=== PATIENT | female | born 1960 | race Caucasian/White ===

== ENCOUNTER → 2017-09-06 | Outpatient (CLI) | payer BC ==
--- NOTE | 2017-09-06 09:54 | US ---
EXAMINATION TYPE: US liver DATE OF EXAM: 09/06/2017 COMPARISON: MRI lumbar spine May 14, 2015 CLINICAL HISTORY: Abnormal Liver Functions R94.5. Patient stats having midline pain. NPO. EXAM MEASUREMENTS: Liver Length: 25.0 cm Gallbladder Wall: 0.1 cm CHD: 0.3 cm Right Kidney: 12.3 x 5.7 x 4.8 cm Pancreas: Appears heterogenous . Tail obscured by overlying bowel gas Liver: Enlarged. Echogenic. Slightly course in appearance. Gallbladder: wnl Evidence for sonographic Rosas's sign: neg CHD: wnl Right Kidney: wnl Evaluation for focal liver masses is suboptimal due to the heterogeneity. IMPRESSION: Heterogeneous hyperechoic appearance to liver could reflect could be product of diffuse f atty infiltration or underlying hepatocellular disease. Imaging guided random biopsy for tissue adams sis can be performed if desired.
[2017-09-06 09:58] LABS: ALT 58 U/L (9-52); AST 40 U/L (14-36); Alkaline Phosphatase 83 U/L (38-126); Anion Gap 11 mmol/L; Blood Urea Nitrogen 12 mg/dL (7-17); Calcium 9.7 mg/dL (8.4-10.2); Carbon Dioxide 24 mmol/L (22-30); Chloride 104 mmol/L (98-107); Glucose 241 mg/dL (74-99); Non-African American GFR(MDRD) >60 (>60 ml/min/1.73 sqM); Potassium 4.6 mmol/L (3.5-5.1); Sodium 139 mmol/L (137-145); Total Bilirubin 0.4 mg/dL (0.2-1.3); Total Protein 6.5 g/dL (6.3-8.2)
[2017-09-06 16:28] LABS: Iron Saturation 11.11 (12.00-45.00); Iron(FE) 45 ug/dL (50-170); Total Iron Binding Capacity 405 ug/dL (228-460)
[2017-09-06 16:35] LABS: ANA w/Reflex to Titer NEGATIVE (NEGATIVE)
== END | disposition home or self-care (01) ==
LOC: RADUSWWP 09:00
PROVIDERS: ATTEND Internal Medicine Gastroenterology
DX: R93.2 Abnormal findings on diagnostic imaging of liver and biliary tract (principal); R94.5 Abnormal results of liver function studies
CPT/HCPCS: 36415; 76705; 80053; 82103; 82390; 82728; 83516; 83540; 83550; 84165; 86038

== ENCOUNTER → 2017-09-14 | Outpatient (CLI) | payer BC ==
--- NOTE | 2017-09-15 22:22 | MR ---
EXAMINATION TYPE: MR cervical spine wo con DATE OF EXAM: 09/14/2017 COMPARISON: 04/09/2016 HISTORY: 57-year-old female pain in Back and shoulders, worsened the last 4 months TECHNIQUE: Multiplanar, multisequence images of the cervical spine were acquired. FINDINGS: No craniocervical junction abnormality, predental space widening, or prevertebral soft tissue swellin g. Normal alignment of the cervical spine. No suspicious bone marrow replacement. MR variable mild disc desiccation. Small posterior disc bulge at C5-C6 demonstrated. Scattered mild facet arthropathy also noted. At C5-C6, small broad-based posterior disc bulge impressing on the ventral thecal sac but not causing significant spinal canal stenosis. Additional facet and uncovertebral joint degenerative change. The re is similar mild left and minimal right neuroforaminal narrowing. At C6/C7, left-sided facet and uncovertebral joint degenerative changes minimally narrowing the left neural foramen. No spinal canal stenosis. Otherwise, no spinal canal or foraminal stenosis at the L4 level. Normal course, caliber, signal intensity of the cervical spinal cord. IMPRESSION: 1. Similar mild multilevel degenerative disc disease and additional scattered mild facet/uncovertebra l joint arthropathy. 2. Unchanged small broad-based disc bulge at C5-C6. Mild left and minimal right neuroforaminal stenos is at this level not significantly changed. 3. No spinal canal stenosis.
== END | disposition home or self-care (01) ==
LOC: RADMRIMAIN 14:54
PROVIDERS: ATTEND Psychiatry & Neurology Neurology
DX: M99.71 Connective tissue and disc stenosis of intervertebral foramina of cervical region (principal); M50.322 Other cervical disc degeneration at C5-C6 level; M46.82 Other specified inflammatory spondylopathies, cervical region; M50.222 Other cervical disc displacement at C5-C6 level
CPT/HCPCS: 72141

== ENCOUNTER → 2018-01-12 | Outpatient (CLI) | payer BC ==
--- NOTE | 2018-01-12 13:31 | FL ---
EXAMINATION TYPE: FL barium swallow w video DATE OF EXAM: 01/12/2018 MODIFIED SWALLOW / DEGLUTITION STUDY CLINICAL HISTORY: Dysphagia. TECHNIQUE: Deglutition study is performed utilizing thin liquid barium, honey and nectar thick liqui d barium, barium thick applesauce, and barium coated cracker. 1.08min fluoro time. No fluoroscopic im ages were saved as video was performed. COMPARISON: None. FINDINGS: The oral and pharyngeal phases show satisfactory initiation and propagation with all modali ties tested. Normal mastication is seen with solid modalities tested. There is no evidence of penet ration or aspiration with any modality tested. No significant pharyngeal residue was appreciated. IMPRESSION: Unremarkable deglutition study. Please refer to speech therapist notes for further detai ls if necessary.
== END | disposition home or self-care (01) ==
LOC: RADFLMAIN 11:05
PROVIDERS: ATTEND Otolaryngology
DX: R13.10 Dysphagia, unspecified (principal)
CPT/HCPCS: 74230

== ENCOUNTER 2018-02-02 10:56 | Day surgery (SDC) | payer BC ==
[2018-01-30 08:23] VITALS: BMI 37.5
[~2018-02-02 10:56] MED LIST: ALPRAZolam 0.25 MG TAB PO PRN; ALPRAZolam 0.5 MG TAB PO PRN; ASPIRIN 325 MG TAB PO STA; ATORVASTATIN 80 MG TAB PO STA; NITROGLYCERIN SL TABS 0.4 MG TAB SUBLINGUAL PRN; SODIUM CHLORIDE 0.9% 1,000 ML in EMPTY BAG 1 BAG IV ONE
[2018-02-02] MEDS ORDERED: INSULIN ASPART 100 UNIT/ML 1 ML 10 ML VIAL SQ ONE (11:37)
[2018-02-02 11:47] LABS: Glucose,Whole Blood 201 mg/dL (75-99)
[2018-02-02 11:54] VITALS: TEMP 98.3
[2018-02-02] MEDS ORDERED: LIDOCAINE 2% INJ 20 MG/ML (20 ML MDV) ONE (12:16)
[2018-02-02] MEDS ORDERED: VERAPAMIL 2.5 MG/ML 2 ML AMP ONE (12:16)
[2018-02-02] MEDS ORDERED: fentaNYL (PF) 50 MCG/ML 2 ML AMP ONE (12:17)
[2018-02-02] MEDS ORDERED: INSULIN ASPART 100 UNIT/ML 1 ML 10 ML VIAL SQ SCH (12:30)
[2018-02-02] MEDS ORDERED: fentaNYL (PF) 50 MCG/ML 2 ML AMP IV ONE (12:31)
[2018-02-02] MEDS ORDERED: LIDOCAINE 2% INJ 20 MG/ML SQ ONE (12:36)
[2018-02-02] MEDS: VERAPAMIL SYRINGE (5 MG/10 ML) INTRAARTER ONE ×2 (12:40→12:52)
[2018-02-02] MEDS ORDERED: HEPARIN SODIUM 1,000 UN/ML (10ML VL) ONE (12:45)
[2018-02-02] MEDS ORDERED: HEPARIN SODIUM 1,000 UN/ML (10ML VL) IV ONE (12:49)
[2018-02-02] MEDS ORDERED: IOPAMIDOL-370 125ML BTL INJ ONE (12:50)
[2018-02-02] MEDS ORDERED: RX INFO: IV CONTRAST WAS GIVEN 1 EACH MISC MISCELLANE PRN (13:07)
[2018-02-02] MEDS ORDERED: HYOSCYAMINE ORAL DROPS 1.875 MG/15 ML BOTTLE PO PRN (13:08)
[2018-02-02] MEDS ORDERED: NITROGLYCERIN SL TABS 0.4 MG TAB SUBLINGUAL PRN (13:08)
[2018-02-02] MEDS ORDERED: SODIUM CHLORIDE 0.9% 1,000 ML IV SCH (13:15)
[2018-02-02 13:20] LABS: Glucose,Whole Blood 165 mg/dL (75-99)
--- NOTE | 2018-02-02 13:42 | LTR ---
February 02, 2018 Re: Lo Cannon Dear Dr. Shaw: I had the opportunity to perform cardiac catheterization on Mrs. Cannon at [facility] on the 02 of February and a full copy of the procedure note will be forwarded to you. In brief, she was found to have no evidence of obstructive coronary artery disease with a preserved left ventricular size and systolic function. Based on those findings, I recommend to continue medical therapy with aggressive coronary risk modification we have initiated. Thank you again for allowing me the opportunity to participate in her care. Please feel free to call for any questions. Sincerely yours, MD REZA SinhaL / NIRMALN: [id number] /
--- NOTE | 2018-02-02 13:42 | CC ---
CARDIAC CATHETERIZATION REPORT Mrs. Cannon is a 57-year-old female known history of hypertension, hyperlipidemia, diabetes mellitus, who has been complaining of chest discomfort. She underwent myocardial perfusion imaging that revealed partially reversible anteroapical wall defect. Because of her persistent symptoms and her risk factors, recommendation was made regarding cardiac catheterization. The procedure as well as the risks and the complications were discussed with the patient who is in full understanding and agreement. PROCEDURE: Patient was brought to the laborer pullet farm in a fasting semi-sedated state after receiving fentanyl and Benadryl and achieving moderate conscious sedated state. Using Xylocaine anesthesia in the Seldinger technique, a 6-Ethiopian sheath was introduced in the right radial artery. Selective right and left coronary angiography performed using 5- Ethiopian 3.5 bend right and left Leanne catheter. Multiple views of the coronary artery including hemiaxial views were obtained. Following that, a 5-Ethiopian tight pigtail catheter introduced in the left ventricle and a 30-degree [place] view of the left ventricle was obtained. Following that, the catheter and sheaths were removed. Hemostasis was obtained with deployment of a TR band. There was no immediate complication. Patient is returned to her room in stable condition. Of note, the patient received intra-arterial verapamil as well as 5000 units of intravenous heparin. FINDINGS: LEFT MAIN: This is a large-sized vessel bifurcating in left circumflex and left anterior descending artery. Left main coronary artery is without any significant obstructive coronary artery disease. LEFT ANTERIOR DESCENDING ARTERY: This is a large-sized vessel reaching toward the apex with a wraparound apex segment giving rise to a large diagonal branch in the mid segment. The left anterior descending artery as well as branches have no evidence of obstructive coronary artery disease. LEFT CIRCUMFLEX: This is a dominant vessel, large in caliber, giving rise to 2 obtuse marginal branches. The first one is small in caliber ,distally bifurcating into PDA and PLV branches. The left circumflex as well as branches have no evidence of obstructive coronary artery disease. RIGHT CORONARY ARTERY: This is a small nondominant vessel that has no evidence of high- grade stenosis, LEFT VENTRICULOGRAM: The left ventriculogram is performed 30-degree [place] view and revealed normal left ventricular size and systolic function. Ejection fraction is 60%. There was no significant mitral regurgitation. HEMODYNAMICS: There was no gradient across the aortic valve. The left ventricle end-diastolic pressure was 12 to 16 mmHg. CONCLUSION: 1. Normal coronary arteries. 2. Normal left ventricular size and systolic function. RECOMMENDATION: Patient will be continued on present medical therapy including the aggressive coronary risk modifications that have been initiated. Depending on her progress, further recommendation will be made. Those findings and recommendation were discussed with the patient and her family and are in full understanding and agreement. MMODL / IJN: [id number] / MTDD
[2018-02-02 17:19] VITALS: PULSE 72; RESP 18
[2018-02-02] MEDS ORDERED: NON-FORMULARY DRUG (Omeprazole [Prilosec] 20 MG) PO SCH (17:30)
[2018-02-02 18:23] VITALS: BP 134/72
[2018-02-02] MEDS ORDERED: CYCLOBENZAPRINE 10 MG TAB PO SCH (21:00)
[2018-02-02] MEDS ORDERED: SUCRALFATE 1 GM TAB PO SCH (21:00)
[2018-02-02] MEDS ORDERED: BECLOMETHASONE DIP 80 MCG/PUFF INHALER INHALATION SCH (21:00)
[2018-02-02] MEDS ORDERED: DULoxetine HCL 60 MG CAPSULE.DR PO SCH (21:00)
[2018-02-02] MEDS ORDERED: LAMOTRIGINE 100 MG PO SCH (21:00)
[2018-02-02] MEDS ORDERED: MONTELUKAST 10 MG TAB PO SCH (21:00)
[2018-02-02] MEDS ORDERED: cycloSPORINE 0.05% OPHTH 0.4 ML DROPERETTE BOTH EYES SCH (21:00)
[2018-02-03] MEDS ORDERED: buPROPion XL 300 MG TAB.ER.24H PO SCH (09:00)
[2018-02-03] MEDS ORDERED: LIRAGLUTIDE SQ SCH (09:00)
[2018-02-03] MEDS ORDERED: NON-FORMULARY DRUG (Aspirin Ec 81 MG) PO SCH (09:00)
[2018-02-03] MEDS ORDERED: FERROUS SULFATE 325 MG TAB PO SCH (09:00)
[2018-02-03] MEDS ORDERED: LEVOTHYROXINE 88 MCG TAB PO SCH (09:00)
[2018-02-03] MEDS ORDERED: DOCUSATE 100 MG CAP PO SCH (09:00)
[2018-02-03] MEDS ORDERED: PROPRANOLOL HCL 120 MG PO SCH (09:00)
== END 2018-02-02 18:10 | disposition home or self-care (01) ==
LOC: CATHCVL 10:56
PROVIDERS: ATTEND Internal Medicine Interventional Cardiology
DX: R07.89 Other chest pain (principal); R94.39 Abnormal result of other cardiovascular function study; E11.9 Type 2 diabetes mellitus without complications; I10 Essential (primary) hypertension; E78.2 Mixed hyperlipidemia; Z82.49 Family history of ischemic heart disease and other diseases of the circulatory system; Z79.84 Long term (current) use of oral hypoglycemic drugs; Z79.82 Long term (current) use of aspirin; Z79.890 Hormone replacement therapy; Z79.51 Long term (current) use of inhaled steroids; Z79.899 Other long term (current) drug therapy; Z88.8 Allergy status to other drugs, medicaments and biological substances
CPT/HCPCS: 93458; C1894; C1769 ×2; J2001; J3010; J1644; Q9967

== ENCOUNTER → 2018-05-26 | Outpatient (CLI) | payer BC ==
--- NOTE | 2018-05-30 09:10 | MM ---
Reason for exam: screening (asymptomatic). Last mammogram was performed 2 years and 7 months ago. History: Patient is nulliparous. Family history of breast cancer in mother. Physical Findings: A clinical breast exam by your physician is recommended on an annual basis and results should be correlated with mammographic findings. MG 3D Screening Mammo W/Cad Bilateral CC and MLO view(s) were taken. Prior study comparison: October 28, 2015, mammogram, performed at [facility]. December 23, 2014, mammogram, performed at [facility]. There are scattered fibroglandular densities. There is chronic nodularity in the right breast. No significant changes when compared with prior studies. ASSESSMENT: Benign, BI-RAD 2 RECOMMENDATION: Routine screening mammogram of both breasts in 1 year.
== END | disposition home or self-care (01) ==
LOC: RADMAMWWP 14:45
PROVIDERS: ATTEND Family Medicine
DX: Z12.31 Encounter for screening mammogram for malignant neoplasm of breast (principal)
CPT/HCPCS: 77063; 77067

== ENCOUNTER → 2018-06-09 | Day surgery (SDC) | payer BC ==
[2018-06-07 14:16] VITALS: BMI 37.2
[~2018-06-09] MED LIST changes: -ALPRAZolam 0.25 MG TAB PO PRN; -ALPRAZolam 0.5 MG TAB PO PRN; -ASPIRIN 325 MG TAB PO STA; -ATORVASTATIN 80 MG TAB PO STA; +LACTATED RINGERS 1,000 ML IV SCH; +LIDOCAINE 1% 20 ML VIAL (10MG/ML) FOR IV START INTRADERMA PRN; +LIDOCAINE 1% INJ 10MG/ML (20 ML MDV) ONE; -NITROGLYCERIN SL TABS 0.4 MG TAB SUBLINGUAL PRN; +ONDANSETRON 4 MG/2 ML VIAL IVP ONE; +PROPOFOL 10 MG/ML 20 ML VIAL IV ONE; -SODIUM CHLORIDE 0.9% 1,000 ML in EMPTY BAG 1 BAG IV ONE
[2018-06-09 07:17] VITALS: RESP 16; TEMP 98.6
[2018-06-09 07:20] LABS: Glucose,Whole Blood 204 mg/dL (75-99)
--- NOTE | 2018-06-09 08:24 | P.PCN ---
Date of Procedure: 06/09/18 Procedure(s) Performed: BRIEF HISTORY: Patient is a 57-year-old, pleasant, white female, scheduled for an upper endoscopy as a part of evaluation of epigastric fullness, admitted dysphagia to solids for the last several weeks duration. She has long-standing history of GERD and has been on omeprazole 20 mg daily as well as Carafate. She also has history of diabetes mellitus diagnosed recently. Because of the ongoing upper GI symptoms she is scheduled for an upper endoscopy with possible dilation. PROCEDURE PERFORMED: Esophagogastroduodenoscopy with biopsy. PREOPERATIVE DIAGNOSIS: Epigastric fullness, intermittent dysphagia to solids. IV sedation per anesthesia. PROCEDURE: After informed consent was obtained, the patient was brought into the endoscopy unit. IV sedation was administered by Anesthesia under continuous monitoring. Initially the Olympus GIF-140 video endoscope was inserted into the mouth. Esophagus intubated without any difficulty. It was gradually advanced into the stomach and duodenum and carefully examined. The bulb and the second part of the duodenum appeared normal. Biopsies were done from the duodenum to rule out celiac disease. The scope at this time was withdrawn to the stomach, adequately insufflated with air, and upon careful examination, mucosa of the antrum, had gastritis and biopsies were done from this area. There was large amount of retained solid food noted in this fundus and body of the stomach precluding adequate visualization but the visualized portions of the body, cardia and the fundus appeared normal. The scope was then withdrawn into the esophagus. The GE junction was located at 39 cm from the incisors. The esophagus appeared normal. There were no erosions or ulcerations seen. No evidence of esophageal stricture and the patient tolerated the procedure well. IMPRESSION: 1. Large amount of retained food in the stomach suggestive of diabetic gastroparesis. 2. Mild antral gastritis and duodenitis. 3. Normal-appearing esophagus with no evidence of esophagitis or esophageal stricture RECOMMENDATIONS: The findings of this examination were discussed with the patient as well as his family. She was advised to follow with the biopsy results. She will continue with her Prilosec 20 mg twice daily and follow antireflux measures. She was advised to be on small frequent meals. She will be seen in office in 6 weeks..
[2018-06-09 08:33] VITALS: BP 119/78; PULSE 83
== END | disposition home or self-care (01) ==
LOC: ORWHC2ENDO 06:47
PROVIDERS: ATTEND Internal Medicine Gastroenterology
DX: K29.50 Unspecified chronic gastritis without bleeding (principal); K21.0 Gastro-esophageal reflux disease with esophagitis; K29.80 Duodenitis without bleeding; I86.4 Gastric varices; I10 Essential (primary) hypertension; E78.5 Hyperlipidemia, unspecified; E11.9 Type 2 diabetes mellitus without complications; J45.909 Unspecified asthma, uncomplicated; G47.33 Obstructive sleep apnea (adult) (pediatric); E07.9 Disorder of thyroid, unspecified; F34.1 Dysthymic disorder; M79.7 Fibromyalgia; Z79.82 Long term (current) use of aspirin; Z79.899 Other long term (current) drug therapy; Z88.8 Allergy status to other drugs, medicaments and biological substances
CPT/HCPCS: 43239; J2405; J2001; J2704; 88305

== ENCOUNTER 2019-12-06 09:17 | Observation (INO) | payer BC ==
[2019-12-06 19:34] VITALS: RESP 18
[2019-12-07 12:52] VITALS: BP 139/68; PULSE 80; TEMP 98.5
== END 2019-12-07 13:42 | disposition home or self-care (01) ==
LOC: EC 09:17 → 1SOBS 12:45
PROVIDERS: ADMIT Internal Medicine; ATTEND Internal Medicine
DX: R07.9 Chest pain, unspecified (principal); E11.65 Type 2 diabetes mellitus with hyperglycemia; I10 Essential (primary) hypertension; E78.00 Pure hypercholesterolemia, unspecified; E78.5 Hyperlipidemia, unspecified; J45.909 Unspecified asthma, uncomplicated; M79.7 Fibromyalgia; K21.9 Gastro-esophageal reflux disease without esophagitis; K76.0 Fatty (change of) liver, not elsewhere classified; H91.90 Unspecified hearing loss, unspecified ear; G47.30 Sleep apnea, unspecified; E03.9 Hypothyroidism, unspecified; K58.9 Irritable bowel syndrome, unspecified; E66.9 Obesity, unspecified; Z68.36 Body mass index [BMI] 36.0-36.9, adult; M19.90 Unspecified osteoarthritis, unspecified site; H40.9 Unspecified glaucoma; F41.9 Anxiety disorder, unspecified; F32.9 Major depressive disorder, single episode, unspecified; L30.9 Dermatitis, unspecified; K76.9 Liver disease, unspecified; E78.1 Pure hyperglyceridemia; Z90.710 Acquired absence of both cervix and uterus; Z90.89 Acquired absence of other organs; Z88.8 Allergy status to other drugs, medicaments and biological substances; Z79.82 Long term (current) use of aspirin; Z79.84 Long term (current) use of oral hypoglycemic drugs; Z79.51 Long term (current) use of inhaled steroids; Z79.890 Hormone replacement therapy; Z79.899 Other long term (current) drug therapy; Z82.49 Family history of ischemic heart disease and other diseases of the circulatory system; Z80.9 Family history of malignant neoplasm, unspecified; Z83.2 Family history of diseases of the blood and blood-forming organs and certain disorders involving the immune mechanism; Z91.011 Allergy to milk products; Z91.018 Allergy to other foods; E11.43 Type 2 diabetes mellitus with diabetic autonomic (poly)neuropathy; K31.84 Gastroparesis; G43.909 Migraine, unspecified, not intractable, without status migrainosus; R06.02 Shortness of breath; R11.0 Nausea; R42 Dizziness and giddiness; R00.2 Palpitations; R61 Generalized hyperhidrosis; R23.2 Flushing; R10.13 Epigastric pain; R10.12 Left upper quadrant pain
CPT/HCPCS: 93005 ×2; 96366 ×2; 96376; 96365; 99291; 36415; 94640 ×2; 94760; 80061; 80053; 80048; 82150; 83690; 83735; 84484; 85025 ×2; 85610; 85730 ×2; 71046; 93979; G0378 ×2; J1644 ×3

== ENCOUNTER → 2019-12-17 | Outpatient (CLI) | payer BC ==
--- NOTE | 2019-12-18 10:27 | BD ---
EXAMINATION TYPE: Axial Bone Density DATE OF EXAM: 12/17/2019 COMPARISON: NONE CLINICAL HISTORY: Z 78.0 Height: 5 FT 2 IN Weight: 207 FRAX RISK QUESTIONS: Alcohol (3 or more units per day): NO Family History (Parent hip fracture): NO Glucocorticoids (More than 3mos): NO (Ex: prednisone, prednisolone, methylprednisolone, dexamethasone, and hydrocortisone). History of Fracture in Adulthood: NO Secondary Osteoporosis: NO 1. Type 1 Diabetes: NO 2. Hyperthyroidism: NO 3. Menopause before 45: PART AGE 44 4. Malnutrition: NO 5. Chronic liver disease: NO Rheumatoid Arthritis: NO Current Tobacco Use: NO RISK FACTORS HISTORY OF: Family History of Osteoporosis: YES Active: NO Postmenopausal woman: PART AGE 44 Poor Health: FAIR TO POOR MEDICATIONS: Thyroid Medications: YES Which medication: SYNTHROID How Long: APPROX 15 YEARS Additional Medications: METFORMIN, SYNTHROID, ALPRAZOLAM, BUPROPION,COSAMIN, FLEXERIL, CYMBALTA, ASPI RIN, LASIX, HYDROXYZINE, IBUPROFEN, KLOR-CON, MELATONIN, LAMICTAL, SINGULAIR, NITROSTAT, PRILOSEC, IN DERAL, QVAR, RESTASIS, SIMVASTATIN, CARAFATE, JARDIANCE, VENTOLIN, VICTOZA, Additional History: EXAM MEASUREMENTS: Bone mineral densitometry was performed using the [employer]. Bone mineral density as measured about the Lumbar spine is: ----- L1-L4(G/cm2): 1.129 T Score Values are as follows: ----- L2: 0.3 ----- L3: -0.3 ----- L4: -1.1 ----- L1-L4: -0.4 BASELINE Bone mineral density about the R hip (g/cm2): 0.995 Bone mineral density about the L hip (g/cm2): 1.004 T Score values are as follows: -----R Neck: -0.3 -----L Neck: -0.2 -----R Total: 0.5 -----L Total: 1.5 BASELINE IMPRESSION: Normal (Values between +1 and -1 indicate normal bone mass). Consider repeating this study in 5 year s or sooner if there is some new clinical indication. NOTE: T-SCORE=SD OF THE YOUNG ADULT MEAN.
--- NOTE | 2019-12-18 11:37 | MM ---
Reason for exam: screening (asymptomatic). Last mammogram was performed 1 year and 7 months ago. History: Patient is nulliparous. Family history of breast cancer in mother. Physical Findings: A clinical breast exam by your physician is recommended on an annual basis and results should be correlated with mammographic findings. MG Screening Mammo w CAD Bilateral CC and MLO view(s) were taken. XCCL view(s) were taken of the right breast. Prior study comparison: May 26, 2018, bilateral MG 3d screening mammo w/cad. October 28, 2015, mammogram, performed at [facility]. There are scattered fibroglandular densities. There is chronic nodularity in the right breast. Small focal asymmetry 2-3 o'clock left breast anterior to middle depth appears more defined on the CC view. These results were verbally communicated with the patient and result sheet given to the patient on 12/17/19. ASSESSMENT: Incomplete: need additional imaging evaluation, BI-RAD 0 RECOMMENDATION: Special view mammogram of the left breast. (3D) If lesion persists on supplemental views, image directed ultrasound is recommended. [facility] will attempt to contact patient to return for supplemental views and ultrasound if indicated.
== END | disposition home or self-care (01) ==
LOC: RADMAMWWP 14:37
PROVIDERS: ATTEND Obstetrics & Gynecology
DX: Z12.31 Encounter for screening mammogram for malignant neoplasm of breast (principal); Z80.3 Family history of malignant neoplasm of breast; Z78.0 Asymptomatic menopausal state
CPT/HCPCS: 77067; 77080

== ENCOUNTER → 2020-01-03 | Outpatient (CLI) | payer BC ==
--- NOTE | 2020-01-04 10:19 | MM ---
Reason for exam: additional evaluation requested from abnormal screening. Last mammogram was performed 1 month ago. History: Patient is nulliparous. Family history of breast cancer in mother at age 49. Physical Findings: Nurse did not find any significant physical abnormalities on exam. MG Work Up Mamm w CAD LT Spot compression CC, spot compression MLO, and LM view(s) were taken of the left breast. Prior study comparison: December 17, 2019, bilateral MG screening mammo w CAD. May 26, 2018, bilateral MG 3d screening mammo w/cad. The breast tissue is heterogeneously dense. This may lower the sensitivity of mammography. Benign appearing calcifications in the left breast. The previously seen abnormality resolves on additional views and appears as fibroglandular tissue compatible with summation. These results were verbally communicated with the patient and result sheet given to the patient on 01/03/20. ASSESSMENT: Benign, BI-RAD 2 RECOMMENDATION: Return to routine screening mammogram schedule for both breasts.
== END | disposition home or self-care (01) ==
LOC: RADMAMWWP 13:54
PROVIDERS: ATTEND Obstetrics & Gynecology
DX: R92.8 Other abnormal and inconclusive findings on diagnostic imaging of breast (principal)
CPT/HCPCS: 77065

== ENCOUNTER → 2021-01-15 | Outpatient (CLI) | payer BC ==
--- NOTE | 2021-01-16 05:36 | MR ---
EXAMINATION TYPE: MR foot LT wo con DATE OF EXAM: 01/15/2021 COMPARISON: None HISTORY: Left foot pain in toes and ball of foot, metatarsalgia, and osteoarthritis for 6 years. There is some metal artifact at the second metatarsal head. There is also some metal artifact on the plantar aspect of the proximal fourth metatarsal. There is no evidence of a fracture. I see no focal bone destruction. The toes appear intact. There is no evidence of a soft tissue mass. There is some edema around the proximal fourth and fifth toes. I see no evidence of a toe fracture. IMPRESSION: No fracture. There is some edema around the fourth and fifth toes. Metal artifact. This could be evaluated further with plain film exam if clinically indicated.
== END | disposition home or self-care (01) ==
LOC: RADMRIMAIN 15:53
PROVIDERS: ATTEND Podiatrist Foot & Ankle Surgery
DX: R60.0 Localized edema (principal)

== ENCOUNTER → 2021-11-13 | Outpatient (CLI) | payer BC ==
[2021-11-14 03:53] LABS: HDL Cholesterol 35.5 mg/dL (40.00-60.00)
[2021-11-14 04:04] LABS: Chol/HDL Ratio 5.24 Ratio; LDL Cholesterol,Direct Reflex 73.1 mg/dL (0.00-129.00)
== END | disposition home or self-care (01) ==
LOC: LABWHC1 14:39
PROVIDERS: ATTEND Internal Medicine Interventional Cardiology
DX: E78.2 Mixed hyperlipidemia (principal)
CPT/HCPCS: 36415; 80061; 83721; 84450; 84460

== ENCOUNTER → 2021-12-21 | Outpatient (CLI) | payer BC ==
--- NOTE | 2021-12-22 08:55 | BD ---
EXAMINATION TYPE: Axial Bone Density DATE OF EXAM: 12/21/2021 COMPARISON: 12/17/2019 CLINICAL HISTORY: Height: 62.2 IN Weight: 209 LBS RISK FACTORS HISTORY OF: History of Wrist Fracture: LT WRIST AGE 8 Family History of Osteoporosis: YES BROTHER Active: YES Postmenopausal woman: PARTIAL HYST AGE 46 MEDICATIONS: Thyroid Medications: YES Which medication: Levothyroxine How Lon YEARS Additional Medications: VIT D, LEVOTHYROXINE,APRAZOLAM, ASPIRIN, BUPROPION, COSAMIN, CYCLOBENZAPRINE, DULOXETINE, FENOFIBRATE, FUROSEMIDE, HYOSCYAMINE, IRON, JARDIANCE, KLOR-CON, LAMOTRIGINE, MELATONIN, METFORMIN, MONTELUKAST, OMEPRAZOLE, PROPRANOLOL, QVAR, RESTASIS, SIMVASTATIN EXAM MEASUREMENTS: Bone mineral densitometry was performed using the [employer]. Bone mineral density as measured about the Lumbar spine is: ----- L1-L4(G/cm2): 1.120 T Score Values are as follows: ----- L2: 0.1 ----- L3: -0.1 ----- L4: -1.2 ----- L1-L4: -0.5 Bone mineral density has: NO CHANGE 0.0% since study of: 12/17/2019 Bone mineral density about the R hip (g/cm2): 0.978 Bone mineral density about the L hip (g/cm2): 0.980 T Score values are as follows: -----R Neck: -0.4 -----L Neck: -0.4 -----R Total: 0.4 -----L Total: 0.8 Bone mineral density has: Decreased -4.3% since study of: 12/17/2019 IMPRESSION: Normal (Values between +1 and -1 indicate normal bone mass). Consider repeating this study in 5 year s or sooner if there is some new clinical indication. NOTE: T-SCORE=SD OF THE YOUNG ADULT MEAN.
== END | disposition home or self-care (01) ==
LOC: RADBDWWP 13:24
PROVIDERS: ATTEND Obstetrics & Gynecology
DX: Z12.31 Encounter for screening mammogram for malignant neoplasm of breast (principal); Z80.3 Family history of malignant neoplasm of breast; Z78.0 Asymptomatic menopausal state
CPT/HCPCS: 77080

== ENCOUNTER → 2022-01-01 | Outpatient (CLI) | payer BC ==
--- NOTE | 2022-01-05 10:35 | MM ---
Reason for exam: screening (asymptomatic). Last mammogram was performed 2 years ago. History: Patient is nulliparous. Family history of breast cancer in mother at age 49. Physical Findings: A clinical breast exam by your physician is recommended on an annual basis and results should be correlated with mammographic findings. MG Screening Mammo w CAD Bilateral CC and MLO view(s) were taken. Prior study comparison: December 17, 2019, bilateral MG screening mammo w CAD. May 26, 2018, bilateral MG 3d screening mammo w/cad. There are scattered fibroglandular densities. There is chronic nodularity in the right breast. Unchanged 3 o'clcok focal asymmetry left breast. No significant changes when compared with prior studies. ASSESSMENT: Benign, BI-RAD 2 RECOMMENDATION: Routine screening mammogram of both breasts in 1 year.
== END | disposition home or self-care (01) ==
LOC: RADMAMWWP 13:49
PROVIDERS: ATTEND Obstetrics & Gynecology
DX: Z12.31 Encounter for screening mammogram for malignant neoplasm of breast (principal); Z80.3 Family history of malignant neoplasm of breast; Z78.0 Asymptomatic menopausal state
CPT/HCPCS: 77067

== ENCOUNTER → 2022-04-01 | Outpatient (CLI) | payer BC ==
[2022-04-01 22:38] LABS: African American GFR (CKD) 112.3 (60.0-200.0); Albumin 4.7 g/dL (3.8-4.9); Albumin/Globulin Ratio 2.21 (1.60-3.17); Anion Gap 15.4 mmol/L (10.00-18.00); BUN/Creat Ratio 25.16 Ratio (12.00-20.00); Blood Urea Nitrogen 15.8 mg/dL (9.0-27.0); Calcium 9.4 mg/dL (8.7-10.3); Carbon Dioxide 21.2 mmol/L (20.0-27.5); Globulin 2.1 g/dL (1.6-3.3); Non-African American GFR(CKD) 96.9 (60.0-200.0); Potassium 4.5 mmol/L (3.5-5.5); Total Bilirubin 0.4 mg/dL (0.30-1.20); Total Protein 6.8 g/dL (6.2-8.2)
[2022-04-01 22:51] LABS: Chol/HDL Ratio 4.95 Ratio; LDL Cholesterol,Direct Reflex 81.7 mg/dL (0.00-129.00)
== END | disposition home or self-care (01) ==
LOC: LABWHC1 12:49
PROVIDERS: ATTEND Nurse Practitioner Adult Health
DX: I10 Essential (primary) hypertension (principal)
CPT/HCPCS: 36415; 80053; 80061; 83721

== ENCOUNTER 2022-04-24 07:01 | Observation (INO) | payer BC ==
[2022-04-24] MEDS ORDERED: SODIUM CHLORIDE 0.9% 500 ML 500 ML IV STA (07:27)
[2022-04-24] MEDS ORDERED: NITROGLYCERIN OINT 1 INCH/GM PACKET TOPICAL STA (07:27)
[2022-04-24] MEDS ORDERED: NITROGLYCERIN SL TABS 0.4 MG TAB SUBLINGUAL STA (07:27)
[2022-04-24] MEDS ORDERED: ASPIRIN 81 MG PO STA (07:27)
--- NOTE | 2022-04-24 07:31 | ED ---
General Adult HPI - General Chief complaint: Chest Pain Stated complaint: Chest Pain Time Seen by Provider: 04/24/22 07:15 Source: patient, RN notes reviewed, old records reviewed Mode of arrival: wheelchair Limitations: no limitations - History of Present Illness Initial comments: This is a 61-year-old female with past medical history significant for diabetes hypertension high cholesterol and a strong family history of heart disease. Patient states she started having a little bit of chest pain yesterday but today and overnight she started having chest pain radiated to her jaw made her a little diaphoretic and short of breath. Patient states the pain continues currently. Patient denies any recent fever chills or cough per patient states she has chronic abdominal pain and she has again today. Patient denies any vomiting patient denies any diarrhea. Patient states exertion did not seem to make the pain any worse. Patient denies any calf pain or leg swelling - Related Data Home Medications Medication Instructions Recorded Confirmed Beclomethasone Dipropionate [Qvar 1 puff INHALATION RT-BID 08/05/14 12/06/19 80 mcg/puff] DULoxetine HCL [Cymbalta] 120 mg PO DAILY 08/05/14 12/06/19 Furosemide [Lasix] 20 mg PO DAILY 08/05/14 12/06/19 Montelukast [Singulair] 10 mg PO HS 08/05/14 12/06/19 Omeprazole [PriLOSEC] 20 mg PO AC-BID 08/05/14 12/06/19 Potassium Chloride [Klor-Con 10] 10 meq PO DAILY 08/05/14 12/06/19 Sucralfate [Carafate] 1 gm PO BID 08/05/14 12/06/19 metFORMIN HCL [Glucophage] 1,000 mg PO BID 08/05/14 12/06/19 Albuterol Inhaler [Ventolin Hfa 1 - 2 puff INHALATION RT-Q6H PRN 03/25/15 12/06/19 Inhaler] Aspirin EC [Ecotrin Low Dose] 81 mg PO DAILY 03/25/15 12/06/19 Hyoscyamine Oral Drops [Levsin 0.125 mg PO DAILY PRN 03/25/15 12/06/19 Drops] Ibuprofen [Motrin] 600 mg PO Q8HR PRN 03/25/15 12/06/19 Liraglutide [Victoza 2-Alexx] 1.7 mg SQ DAILY 03/25/15 12/06/19 Nitroglycerin Sl Tabs [Nitrostat] 0.4 mg SUBLINGUAL Q5M PRN 03/25/15 12/06/19 cycloSPORINE [Restasis] 1 drop BOTH EYES Q12H 03/25/15 12/06/19 Cyclobenzaprine [Flexeril] 10 mg PO HS 01/30/18 12/06/19 Docusate [Colace] 100 mg PO DAILY 01/30/18 12/06/19 Melatonin 5 mg PO HS 01/30/18 12/06/19 buPROPion HCL [Wellbutrin XL] 300 mg PO DAILY 01/30/18 12/06/19 Ferrous Sulfate [Iron (65 MG 325 mg PO DAILY 06/07/18 12/06/19 Elemental)] ALPRAZolam [Xanax] 0.5 mg PO BID PRN 12/06/19 12/06/19 Ascorbic Acid [Vitamin C] 500 mg PO DAILY 12/06/19 12/06/19 Aspirin EC [Ecotrin Low Dose] 324 mg PO ONCE PRN 12/06/19 12/06/19 Bimatoprost [[place] 0.01% Ophth 1 drop BOTH EYES HS 12/06/19 12/06/19 Soln] Biotin [Biotin Disolve] 5,000 mcg PO DAILY 12/06/19 12/06/19 Calcium/Magnes/[place] 1 tab PO TID 12/06/19 12/06/19 Cosamin Asu 1 tab PO DAILY 12/06/19 12/06/19 Cyanocobalamin (Vitamin B-12) 1,000 mcg PO DAILY 12/06/19 12/06/19 [Vitamin B-12] Empagliflozin [Jardiance] 10 mg PO DAILY 12/06/19 12/06/19 Evening [place] Oil 1,000 mg PO FR 12/06/19 12/06/19 L.acidoph,Paracasei, B.lactis 1 cap PO DAILY 12/06/19 12/06/19 [Probiotic] Levothyroxine Sodium [Synthroid] 100 mcg PO DAILY 12/06/19 12/06/19 Mupirocin 2% Oint [Bactroban 2% 1 applic TOPICAL DAILY PRN 12/06/19 12/06/19 Oint] [place]-3 Fatty Acids [[place]-3] 1,000 mg PO TID 12/06/19 12/06/19 Triamcinolone 0.1% Ointment 1 applic TOPICAL DAILY PRN 12/06/19 12/06/19 [Kenalog 0.1% Ointment] Vitamin E 400 unit PO DAILY 12/06/19 12/06/19 buPROPion XL [Wellbutrin XL] 150 mg PO DAILY 12/06/19 12/06/19 lamoTRIgine [LaMICtal] 100 mg PO DAILY 12/06/19 12/06/19 lamoTRIgine [LaMICtal] 200 mg PO HS 12/06/19 12/06/19 Previous Rx's Medication Instructions Recorded Atorvastatin [Lipitor] 40 mg PO HS #90 tab 12/07/19 Fenofibrate [Lofibra] 160 mg PO DAILY #90 tab 12/07/19 Metoprolol Tartrate [Lopressor] 50 mg PO DAILY #90 tab 12/07/19 Allergies Allergy/AdvReac Type Severity Reaction Status Date / Time desipramine HCl Allergy Rash/Hives Verified 04/24/22 07:06 [From Norpramin] gluten Allergy Abdominal Verified 04/24/22 07:06 Pain Milk Containing Products AdvReac Abdominal Verified 04/24/22 07:06 Pain YEAST AdvReac Unknown Abdominal Uncoded 04/24/22 07:06 Pain Review of Systems ROS Statement: Those systems with pertinent positive or pertinent negative responses have been documented in the HPI. ROS Other: All systems not noted in ROS Statement are negative. Past Medical History Past Medical History: Asthma, Chest Pain / Angina, Diabetes Mellitus, Eye Disor snow, Fibromyalgia, GERD/Reflux, Hearing Disorder / Deafness, Hyperlipidemia, Hypertension, Liver Disease, Skin Disorder, Sleep Apnea/CPAP/BIPAP, Thyroid Disorder Additional Past Medical History / Comment(s): Central auditory processing disorder/[place], dysphagia, gastritis, duodenitis, gastroparesis, IBS, NIDDM type II, neuropathy bilateral legs/feet, fatty liver, [place] with Cpap, bilateral glaucoma, eczema, insomnia, hypothyroid, occasional lower leg edema, migraines, chronic cervical/across shoulder/low back pain, anemia, sinus issues. History of Any Multi-Drug Resistant Organisms: None Reported Past Surgical History: Adenoidectomy, Heart Catheterization, Hysterectomy, Orthopedic Surgery, Tonsillectomy Additional Past Surgical History / Comment(s): L hand bone/tendon surgery, R hand surgery d/t dog bite, bilateral carpal tunnel releases, EGD, colonoscopy, cardiac cath 2-3 yrs ago-states it was normal Past Anesthesia/Blood Transfusion Reactions: Postoperative Nausea & Vomiting (PONV) Past Psychological History: Anxiety, Depression Smoking Status: Never smoker Past Alcohol Use History: None Reported Past Drug Use History: None Reported - Past Family History Mother Family Medical History: Cancer, Deep Vein Thrombosis (DVT) Additional Family Medical History / Comment(s): Mother of breast cancer. Father Family Medical History: Cancer, Deep Vein Thrombosis (DVT) Additional Family Medical History / Comment(s): Father of prostate cancer. General Exam - General Exam Comments Initial Comments: GENERAL: Patient is well-developed and well-nourished. Patient is nontoxic and well- hydrated and is in mild distress. ENT: Neck is soft and supple. No significant lymphadenopathy is noted. Oropharynx is clear. Moist mucous membranes. Neck has full range of motion without eliciting any pain. EYES: The sclera were anicteric and conjunctiva were pink and moist. Extraocular movements were intact and pupils were equal round and reactive to light. Eyelids were unremarkable. PULMONARY: Unlabored respirations. Good breath sounds bilaterally. No audible rales rhonchi or wheezing was noted. CARDIOVASCULAR: There is a regular rate and rhythm without any murmurs gallops or rubs. ABDOMEN: Soft and nontender with normal bowel sounds. SKIN: Skin is clear with no lesions or rashes and otherwise unremarkable. NEUROLOGIC: Patient is alert and oriented x3. Cranial nerves II through XII are grossly intact. Motor and sensory are also intact. Normal speech, volume and content. Symmetrical smile. MUSCULOSKELETAL: Normal extremities with adequate strength and full range of motion. No lower extremity swelling or edema. No calf tenderness. LYMPHATICS: No significant lymphadenopathy is noted PSYCHIATRIC: Normal psychiatric evaluation. Limitations: no limitations Course Vital Signs 04/24/22 07:02 Temperature 97.9 F Pulse Rate 72 Respiratory 18 Rate Blood Pressure 126/69 O2 Sat by Pulse 99 Oximetry Medical Decision Making - Medical Decision Making EKG shows sinus rhythm at 71 bpm SD interval is 182 QRS is under 10 Q-T intervals 408 QTC is 431. Patient's EKG shows no ST segment elevation or depression. Chest x-ray shows no acute abnormality. Patient states nitroglycerin definitely reduce the pain. Patient states the pain is not reproducible with movement or palpation. I spoke with the [facility] hospitalist agreed to admit the patient and the patient wrote admitting orders - Lab Data Result diagrams: 04/24/22 07:31 04/24/22 07:31 Lab Results 04/24/22 04/24/22 04/24/22 Range/Units 07:31 07:31 07:31 WBC 8.3 (3.8-10.6) k/uL RBC 4.66 (3.80-5.40) m/uL Hgb 14.0 (11.4-16.0) gm/dL Hct 43.8 (34.0-46.0) % MCV 94.1 (80.0-100.0) fL MCH 30.1 (25.0-35.0) pg MCHC 32.0 (31.0-37.0) g/dL RDW 14.8 (11.5-15.5) % Plt Count 225 (150-450) k/uL MPV 8.5 Neutrophils % 53 % Lymphocytes % 35 % Monocytes % 6 % Eosinophils % 2 % Basophils % 1 % Neutrophils # 4.4 (1.3-7.7) k/uL Lymphocytes # 2.9 (1.0-4.8) k/uL Monocytes # 0.5 (0-1.0) k/uL Eosinophils # 0.2 (0-0.7) k/uL Basophils # 0.1 (0-0.2) k/uL PT 10.4 (9.0-12.0) sec INR 0.9 (<1.2) APTT 23.0 (22.0-30.0) sec Sodium 139 (137-145) mmol/L Potassium 4.2 (3.5-5.1) mmol/L Chloride 103 (98-107) mmol/L Carbon Dioxide 26 (22-30) mmol/L Anion Gap 10 mmol/L BUN 17 (7-17) mg/dL Creatinine 0.64 (0.52-1.04) mg/dL Est GFR (CKD-EPI)AfAm >90 (>60 ml/min/1.73 sqM) Est GFR (CKD-EPI)NonAf >90 (>60 ml/min/1.73 sqM) Glucose 142 H (74-99) mg/dL Calcium 9.1 (8.4-10.2) mg/dL Magnesium 2.0 (1.6-2.3) mg/dL Total Bilirubin 0.4 (0.2-1.3) mg/dL AST 27 (14-36) U/L ALT 26 (4-34) U/L Alkaline Phosphatase 73 (38-126) U/L Troponin I (0.000-0.034) ng/mL Total Protein 6.6 (6.3-8.2) g/dL Albumin 4.3 (3.5-5.0) g/dL 04/24/22 Range/Units 07:31 WBC (3.8-10.6) k/uL RBC (3.80-5.40) m/uL Hgb (11.4-16.0) gm/dL Hct (34.0-46.0) % MCV (80.0-100.0) fL MCH (25.0-35.0) pg MCHC (31.0-37.0) g/dL RDW (11.5-15.5) % Plt Count (150-450) k/uL MPV Neutrophils % % Lymphocytes % % Monocytes % % Eosinophils % % Basophils % % Neutrophils # (1.3-7.7) k/uL Lymphocytes # (1.0-4.8) k/uL Monocytes # (0-1.0) k/uL Eosinophils # (0-0.7) k/uL Basophils # (0-0.2) k/uL PT (9.0-12.0) sec INR (<1.2) APTT (22.0-30.0) sec Sodium (137-145) mmol/L Potassium (3.5-5.1) mmol/L Chloride (98-107) mmol/L Carbon Dioxide (22-30) mmol/L Anion Gap mmol/L BUN (7-17) mg/dL Creatinine (0.52-1.04) mg/dL Est GFR (CKD-EPI)AfAm (>60 ml/min/1.73 sqM) Est GFR (CKD-EPI)NonAf (>60 ml/min/1.73 sqM) Glucose (74-99) mg/dL Calcium (8.4-10.2) mg/dL Magnesium (1.6-2.3) mg/dL Total Bilirubin (0.2-1.3) mg/dL AST (14-36) U/L ALT (4-34) U/L Alkaline Phosphatase (38-126) U/L Troponin I <0.012 (0.000-0.034) ng/mL Total Protein (6.3-8.2) g/dL Albumin (3.5-5.0) g/dL Disposition Clinical Impression: Chest pain Disposition: ADMITTED IP TO THIS HOSP Referrals: Shun Shaw DO [Primary Care Provider] - 1-2 days Time of Disposition: 08:23
[2022-04-24 07:38] LABS: Basophils # (A) 0.1 k/uL (0-0.2); Basophils % (A) 1 %; Eosinophils # (A) 0.2 k/uL (0-0.7); Eosinophils % (A) 2 %; HCT 43.8 % (34.0-46.0); Lymphocytes # (A) 2.9 k/uL (1.0-4.8); Lymphocytes % (A) 35 %; MCH 30.1 pg (25.0-35.0); MCV 94.1 fL (80.0-100.0); Mean Platelet Volume 8.5; Monocytes # (A) 0.5 k/uL (0-1.0); Monocytes % (A) 6 %; Neutrophils # (A) 4.4 k/uL (1.3-7.7); Neutrophils % (A) 53 %; Platelet Count 225 k/uL (150-450); RBC 4.66 m/uL (3.80-5.40); RDW 14.8 % (11.5-15.5); WBC 8.3 k/uL (3.8-10.6)
[2022-04-24 07:48] LABS: INR 0.9 (<1.2); Prothrombin Time 10.4 sec (9.0-12.0)
[2022-04-24 07:51] LABS: ALT 26 U/L (4-34); AST 27 U/L (14-36); African American GFR (CKD) >90 (>60 ml/min/1.73 sqM); Albumin 4.3 g/dL (3.5-5.0); Alkaline Phosphatase 73 U/L (38-126); Anion Gap 10 mmol/L; Blood Urea Nitrogen 17 mg/dL (7-17); Calcium 9.1 mg/dL (8.4-10.2); Carbon Dioxide 26 mmol/L (22-30); Chloride 103 mmol/L (98-107); Glucose 142 mg/dL (74-99); Non-African American GFR(CKD) >90 (>60 ml/min/1.73 sqM); Potassium 4.2 mmol/L (3.5-5.1); Sodium 139 mmol/L (137-145); Total Bilirubin 0.4 mg/dL (0.2-1.3); Total Protein 6.6 g/dL (6.3-8.2)
--- NOTE | 2022-04-24 07:52 | XR ---
EXAMINATION TYPE: XR chest 2V DATE OF EXAM: 04/24/2022 7:33 AM COMPARISON: Chest radiographs from 12/06/2019 TECHNIQUE: XR chest 2V Frontal and lateral views of the chest. CLINICAL INDICATION:Female, 61 years old with history of Chest Pain; FINDINGS: Lungs/Pleura: There is no evidence of pleural effusion, focal consolidation, or pneumothorax. Pulmonary vascularity: Unremarkable. Heart/mediastinum: Cardiomediastinal silhouette is unremarkable. Musculoskeletal: No acute osseous pathology. IMPRESSION: No acute cardiopulmonary disease/process.
[2022-04-24] MEDS ORDERED: NITROGLYCERIN SL TABS 0.4 MG TAB SUBLINGUAL PRN (08:24)
[2022-04-24] MEDS ORDERED: NITROGLYCERIN OINT 1 INCH/GM PACKET TOPICAL SCH (13:00)
[2022-04-24] MEDS ORDERED: ALPRAZolam 0.5 MG TAB PO PRN (13:06)
[2022-04-24] MEDS ORDERED: ALBUTEROL NEBULIZED 2.5 MG/3 ML INHALATION PRN (13:06)
[2022-04-24] MEDS ORDERED: HYDROcodone/APAP 5-325MG 1 EACH TAB PO PRN (13:09)
[2022-04-24] MEDS ORDERED: HYDROmorphone 0.5 MG/0.5 ML SYRINGE IVP PRN (13:09)
[2022-04-24 13:11] VITALS: RESP 16
--- NOTE | 2022-04-24 13:15 | P.CRDCN ---
History of Present Illness Consult date: 04/24/22 History of present illness: History of Present Illness: The patient is a 61-year-old female with a history of hypertension, hyperlipidemia and diabetes mellitus who presents with symptoms of chest discomfort and dyspnea. Her symptoms started yesterday and persisted, had some respirophasic pattern to it. She had some abdominal pain and nausea. The discomfort was not exertional. She has underwent cardiac catheterization in 2002 in 2017 and had no evidence of obstructive disease and her most recent MPI done in August 2021 showed no evidence of stress-induced ischemia. She has a normal systolic function by echocardiography. She had chest discomfort and on and off in the past, not activity related. She has some cough but no fever. She is feeling nauseated and has some abdominal discomfort. She has occasional peripheral edema, she has no PND or orthopnea. Her EKG showed no acute changes and her cardiac enzymes are unremarkable. Medications: Metformin 1 g twice a day, Wellbutrin, Carafate, propranolol 120 mg daily, Singulair, Lasix 20 mg daily, Trulicity,Jardiance, Cymbalta, Lipitor 20 mg daily, aspirin once a day, Qvar, Xanax, Ventolin, Flovent, Flexeril Review of Systems: Respiratory: She has a history of bronchial asthma and dyspnea on exertion GI: She had recent nausea and vomiting . No history of peptic ulcer disease. No recent GI bleed. : She had a recent UTI Nervous System: No stroke or seizure. Physical Examination: 61-year-old female, alert and oriented no apparent distress ,Blood pressure 109/50, Heart rate 72 Head: Normocephalic. Eyes: Sclerae nonicteric. Neck: Good carotid upstroke, no bruit, no jugular venous distention. Lungs: Clear to auscultation. Heart: Regular rate and rhythm, S1-S2, no S3, no rub. Systolic ejection murmur. Abdomen: Soft, mild tenderness, positive bowel sounds no organomegaly. Extremities: No edema, intact distal pulses. Labs: Troponin less than 0.012, BUN 17, creatinine 0.64, potassium 4.2, chest x-ray with no acute infiltrate EKG: Sinus mechanism, left axis deviation with poor R-wave progression Impression: 1. Chest discomfort probably noncardiac no evidence to suggest acute coronary syndrome. Patient had been MPI less than a year ago that showed no evidence of stress-induced ischemia and her prior cardiac catheterization showed no evidence of obstructive disease 2. History of hypertension 3. History of hyperlipidemia 4. History of diabetes Plan: 1. Resume home medications 2. Follow blood pressure and cardiac enzymes 3. If there is no significant abnormalities then no further cardiac workup will be needed 4. Thank you for this consult we will follow with you. Past Medical History Past Medical History: Asthma, Chest Pain / Angina, Diabetes Mellitus, Eye Disorder, Fibromyalgia, GERD/Reflux, Hearing Disorder / Deafness, Hy perlipidemia, Hypertension, Liver Disease, Skin Disorder, Sleep Apnea/CPAP/BIPAP, Thyroid Disorder Additional Past Medical History / Comment(s): Central auditory processing di sorder/[place], dysphagia, gastritis, duodenitis, gastroparesis, IBS, NIDDM type II, neuropathy bilateral legs/feet, fatty liver, [place] with Cpap, bilateral glaucoma, eczema, insomnia, hypothyroid, occasional lower leg edema, migraines, chronic cervical/across shoulder/low back pain, anemia, sinus issues. History of Any Multi-Drug Resistant Organisms: None Reported Past Surgical History: Adenoidectomy, Heart Catheterization, Hysterectomy, Orthopedic Surgery, Tonsillectomy Additional Past Surgical History / Comment(s): L hand bone/tendon surgery, R hand surgery d/t dog bite, bilateral carpal tunnel releases, EGD, colonoscopy, cardiac cath 2-3 yrs ago-states it was normal Past Anesthesia/Blood Transfusion Reactions: Postoperative Nausea & Vomiting (PONV) Past Psychological History: Anxiety, Depression Additional Psychological History / Comment(s): Pt resides with her spouse. She is independent. Smoking Status: Never smoker Past Alcohol Use History: None Reported Past Drug Use History: None Reported - Past Family History Mother Family Medical History: Cancer, Deep Vein Thrombosis (DVT) Additional Family Medical History / Comment(s): Mother of breast cancer. Father Family Medical History: Cancer, Deep Vein Thrombosis (DVT) Additional Family Medical History / Comment(s): Father of prostate cancer. Medications and Allergies Home Medications Medication Instructions Recorded Confirmed Type Beclomethasone Dipropionate [Qvar 1 puff INHALATION RT-BID 08/05/14 04/24/22 H istory 80 mcg/puff] DULoxetine HCL [Cymbalta] 120 mg PO DAILY 08/05/14 04/24/22 History Furosemide [Lasix] 20 mg PO DAILY 10/13/14 07/02/22 History Montelukast [Singulair] 10 mg PO HS 08/05/14 04/24/22 History Omeprazole [PriLOSEC] 20 mg PO BID-W/MEALS 08/05/14 04/24/22 History Potassium Chloride [Klor-Con 10] 10 meq PO DAILY 08/05/14 04/24/22 History Sucralfate [Carafate] 1 gm PO BID 08/05/14 04/24/22 History metFORMIN HCL [Glucophage] 1,000 mg PO BID-W/MEALS 08/05/14 04/24/22 History Albuterol Inhaler [Ventolin Hfa 2 puff INHALATION RT-QID PRN 03/25/15 04/24/22 History Inhaler] Aspirin EC [Ecotrin Low Dose] 81 mg PO DAILY 03/25/15 04/24/22 History Ibuprofen [Motrin] 600 mg PO Q8H PRN 03/25/15 04/24/22 History Nitroglycerin Sl Tabs [Nitrostat] 0.4 mg SL Q5M PRN 03/25/15 04/24/22 History cycloSPORINE [Restasis] 1 drop BOTH EYES Q12H 03/25/15 04/24/22 History Cyclobenzaprine [Flexeril] 10 mg PO HS 01/30/18 04/24/22 History Docusate [Colace] 100 mg PO DAILY 01/30/18 04/24/22 History Melatonin 10 mg PO HS 01/30/18 04/24/22 History buPROPion HCL [Wellbutrin XL] 300 mg PO DAILY 01/30/18 04/24/22 History Ferrous Sulfate [Iron (65 MG 325 mg PO DAILY 06/07/18 04/24/22 History Elemental)] ALPRAZolam [Xanax] 0.5 mg PO BID PRN 12/06/19 04/24/22 History Ascorbic Acid [Vitamin C] 500 mg PO DAILY 12/06/19 04/24/22 History Biotin [Biotin Disolve] 5,000 mcg PO DAILY 12/06/19 04/24/22 History Calcium/Magnes/[place] 1 tab PO TID 12/06/19 04/24/22 History Cyanocobalamin (Vitamin B-12) 1,000 mcg PO DAILY 12/06/19 04/24/22 History [Vitamin B-12] Empagliflozin [Jardiance] 10 mg PO DAILY 12/06/19 04/24/22 History Evening [place] Oil 1,000 mg PO FR 12/06/19 04/24/22 History L.acidoph,Paracasei, B.lactis 1 cap PO DAILY 12/06/19 04/24/22 History [Probiotic] Levothyroxine Sodium [Synthroid] 100 mcg PO DAILY 12/06/19 04/24/22 History Mupirocin 2% Oint [Bactroban 2% 1 applic TOPICAL DAILY PRN 12/06/19 04/24/22 History Oint] Triamcinolone 0.1% Ointment 1 applic TOPICAL DAILY PRN 12/06/19 04/24/22 History [Kenalog 0.1% Ointment] Vitamin E 400 unit PO BID 12/06/19 04/24/22 History buPROPion XL [Wellbutrin XL] 150 mg PO DAILY 12/06/19 04/24/22 History lamoTRIgine [LaMICtal] 200 mg PO HS 12/06/19 04/24/22 History Atorvastatin [Lipitor] 20 mg PO HS 04/24/22 04/24/22 History Cosamin Asu 1 tab PO DAILY 04/24/22 04/24/22 History Dulaglutide [Trulicity] 0.75 mg SQ FR 04/24/22 04/24/22 History Fluticasone Propionate 220 Mcg 2 puff INHALATION RT-BID 04/24/22 04/24/22 History [Flovent 220 Mcg Inhaler] Omega3/Dha/Epa/Fish Oil/Vit D3 1 cap PO TID 04/24/22 04/24/22 History [[place]-3 + Vitamin D3 Softgel] Propranolol HCl [Propranolol HCl 120 mg PO DAILY 04/24/22 04/24/22 History ER] Vitamin D3(Unknown) 1 tab PO DAILY 04/24/22 04/24/22 History Allergies Allergy/AdvReac Type Severity Reaction Status Date / Time desipramine HCl Allergy Rash/Hives Verified 04/24/22 07:06 [From Norpramin] gluten Allergy Abdominal Verified 04/24/22 07:06 Pain Milk Containing Products AdvReac Abdominal Verified 04/24/22 07:06 Pain YEAST AdvReac Unknown Abdominal Uncoded 04/24/22 07:06 Pain Physical Exam Vitals: Vital Signs Temp Pulse Resp BP Pulse Ox 04/24/22 09:43 78 18 122/68 98 04/24/22 07:02 97.9 F 72 18 126/69 99 Intake and Output 04/23/22 04/24/22 04/24/22 22:59 06:59 14:59 Other: Weight 88.451 kg Results 04/24/22 07:31 04/24/22 07:31 Cardiac Enzymes 04/24/22 04/24/22 04/24/22 Range/Units 07:31 07:31 11:08 AST 27 (14-36) U/L Troponin I <0.012 <0.012 (0.000-0.034) ng/mL Coagulation 04/24/22 Range/Units 07:31 PT 10.4 (9.0-12.0) sec APTT 23.0 (22.0-30.0) sec CBC 04/24/22 Range/Units 07:31 WBC 8.3 (3.8-10.6) k/uL RBC 4.66 (3.80-5.40) m/uL Hgb 14.0 (11.4-16.0) gm/dL Hct 43.8 (34.0-46.0) % Plt Count 225 (150-450) k/uL Comprehensive Metabolic Panel 04/24/22 Range/Units 07:31 Sodium 139 (137-145) mmol/L Potassium 4.2 (3.5-5.1) mmol/L Chloride 103 (98-107) mmol/L Carbon Dioxide 26 (22-30) mmol/L BUN 17 (7-17) mg/dL Creatinine 0.64 (0.52-1.04) mg/dL Glucose 142 H (74-99) mg/dL Calcium 9.1 (8.4-10.2) mg/dL AST 27 (14-36) U/L ALT 26 (4-34) U/L Alkaline Phosphatase 73 (38-126) U/L Total Protein 6.6 (6.3-8.2) g/dL Albumin 4.3 (3.5-5.0) g/dL Current Medications Generic Name Dose Route Start Last Admin Trade Name Freq PRN Reason Stop Dose Admin Aspirin 325 mg 04/25/22 09:00 Aspirin 325 Mg Tab PO DAILY GABINO Nitroglycerin 0.4 mg 04/24/22 08:24 Nitroglycerin Sl Tabs 0.4 Mg Tab SUBLINGUAL Q5M PRN Chest Pain Nitroglycerin 1 inch 04/24/22 13:00 Nitroglycerin Oint 1 Inch/Gm Packet TOPICAL Q6HR GABINO Intake and Output 04/23/22 04/24/22 04/24/22 22:59 06:59 14:59 Other: Weight 88.451 kg Patient Weight 04/25/22 06:59 Weight 88.451 kg 04/24/22 07:31 04/24/22 07:31
--- NOTE | 2022-04-24 14:06 | HP ---
HISTORY AND PHYSICAL DATE OF SERVICE: 04/24/2022 CHIEF COMPLAINT: Chest pain. HISTORY OF PRESENT ILLNESS: This 61-year-old woman with a past medical history of multiple medical problems, including diabetes mellitus, being followed by Dr. Shaw in the outpatient setting, presented with complaints of chest pain. The pain was felt in the anterior part of chest which was radiating to the left shoulder and . The patient was also complaining of upper abdominal pain. Troponins were negative. The EKG was suggestive of no acute changes, but chronic pulmonary disease. PAST MEDICAL HISTORY: Past medical history includes diabetes mellitus, fibromyalgia. HOME MEDICATIONS: Reviewed. They include Glucophage. Rest of the medications are reviewed. Doses are reviewed. ALLERGIES: ALLERGIES INCLUDE GLUTEN. FAMILY HISTORY: History of DVT. SOCIAL HISTORY: No history of smoking. REVIEW OF SYSTEMS: Fourteen-point review of systems negative except as mentioned earlier. PHYSICAL EXAMINATION: Pulse 78, blood pressure 122/60, respiration 18. HEENT: Conjunctivae normal. NECK: No jugular venous distention. CARDIOVASCULAR: S1, S2 muffled. RESPIRATION: Breath sounds diminished at the bases. No rhonchi. No crackles. ABDOMEN: Soft. Mild diffuse tenderness in the upper abdomen. LEGS: No edema. No swelling. NERVOUS SYSTEM: No focal deficit. SKIN: No ulcer, rash, bleeding. JOINTS: No active deforming arthropathy. LABS: CBC normal. CMP normal. ASSESSMENT: 1. Chest pain; possible unstable angina. 2. Abdominal pain; possible gastroesophageal reflux disease. 3. Diabetes mellitus, type 2. 4. History of asthma. 5. Multiple medical issues. RECOMMENDATIONS AND DISCUSSION: In this 61-year-old woman who presented with multiple complex medical issues, we will monitor the patient closely. Cardiology consultation. Rule out acute coronary syndrome. Otherwise, ultrasound of the abdomen. Guarded prognosis because of multiple complex medical issues. See orders for further details. Further recommendations to follow. MMODL / IJN: [id number] / MTDD
[2022-04-24] MEDS: cycloSPORINE 0.05% OPHTH 0.4 ML DROPERETTE BOTH EYES SCH (15:35)
[2022-04-24] MEDS: PANTOPRAZOLE 40 MG/10 ML VIAL IVP SCH ×2 (15:36→20:24)
[2022-04-24] MEDS: OMEGA3 PO SCH ×2 (16:06→20:20)
[2022-04-24] MEDS: EPA PO SCH ×2 (16:06→20:20)
[2022-04-24] MEDS: FISH OIL PO SCH ×2 (16:06→20:20)
[2022-04-24] MEDS: VIT D3 PO SCH ×2 (16:06→20:20)
[2022-04-24] MEDS: DHA PO SCH ×2 (16:06→20:20)
[2022-04-24] MEDS: [UNRECOGNIZED DRUG - OTHER] PO SCH ×2 (16:06→20:20)
[2022-04-24] MEDS: metFORMIN 500 MG TAB PO SCH (17:13)
[2022-04-24] MEDS: SUCRALFATE 1 GM TAB PO SCH (17:16)
[2022-04-24] MEDS ORDERED: BECLOMETHASONE DIPROPIONATE INHALATION SCH (20:00)
[2022-04-24] MEDS ORDERED: W ADAP INHALATION SCH (20:00)
[2022-04-24] MEDS: VITAMIN E (DL,TOCOPHERYL ACET) 400 UNIT (180 MG) CAP PO SCH (20:24)
[2022-04-24] MEDS ORDERED: ATORVASTATIN 20 MG TAB PO SCH (21:00)
[2022-04-24] MEDS ORDERED: CYCLOBENZAPRINE 10 MG TAB PO SCH (21:00)
[2022-04-24] MEDS ORDERED: lamoTRIgine 100 MG TAB PO SCH (21:00)
[2022-04-24] MEDS ORDERED: MONTELUKAST 10 MG TAB PO SCH (21:00)
[2022-04-24] MEDS ORDERED: MELATONIN 5 MG TABLET PO SCH (21:00)
[2022-04-24] MEDS: FLUTICASONE 220 MCG INHALER INHALATION SCH (21:09)
[2022-04-25] MEDS: cycloSPORINE 0.05% OPHTH 0.4 ML DROPERETTE BOTH EYES SCH ×2 (01:39→13:22)
[2022-04-25] MEDS: metFORMIN 500 MG TAB PO SCH (05:36)
[2022-04-25] MEDS: LEVOTHYROXINE 100 MCG TAB PO SCH ×2 (05:36→08:04)
[2022-04-25] MEDS: FLUTICASONE 220 MCG INHALER INHALATION SCH (07:06)
[2022-04-25 07:11] VITALS: BP 120/67; PULSE 77; TEMP 97.6
[2022-04-25] MEDS: DHA PO SCH ×2 (07:57→12:38)
[2022-04-25] MEDS: VIT D3 PO SCH ×2 (07:57→12:38)
[2022-04-25] MEDS: OMEGA3 PO SCH ×2 (07:57→12:38)
[2022-04-25] MEDS: [UNRECOGNIZED DRUG - OTHER] PO SCH ×2 (07:57→12:38)
[2022-04-25] MEDS: EPA PO SCH ×2 (07:57→12:38)
[2022-04-25] MEDS: FISH OIL PO SCH ×2 (07:57→12:38)
[2022-04-25] MEDS: PANTOPRAZOLE 40 MG/10 ML VIAL IVP SCH (08:03)
[2022-04-25] MEDS: VITAMIN E (DL,TOCOPHERYL ACET) 400 UNIT (180 MG) CAP PO SCH (08:04)
[2022-04-25] MEDS: SUCRALFATE 1 GM TAB PO SCH (08:04)
--- NOTE | 2022-04-25 08:17 | US ---
EXAMINATION TYPE: US gallbladder DATE OF EXAM: 04/25/2022 COMPARISON: US CLINICAL HISTORY: us liver. Pain EXAM MEASUREMENTS: Liver Length: 24.8 cm Gallbladder Wall: 0.1 cm CBD: 0.3 cm Right Kidney: 13.0 x 4.4 x 4.9 cm Pancreas: wnl, tail obscured by overlying bowel gas Liver: Enlarged, heterogeneous, probable areas of fatty sparing especially near gallbladder Gallbladder: wnl Evidence for sonographic Rosas's sign: No CBD: wnl Right Kidney: wnl IMPRESSION: 1. No evidence for acute process. 2. Hepatic steatosis with areas of fatty sparing.
[2022-04-25] MEDS ORDERED: NON FORMULARY DRUG (Empagliflozin [Jardiance] 10 MG Tablet) PO SCH (09:00)
[2022-04-25] MEDS ORDERED: DOCUSATE 100 MG CAP PO SCH (09:00)
[2022-04-25] MEDS ORDERED: VITAMIN D3 PO SCH (09:00)
[2022-04-25] MEDS ORDERED: PROPRANOLOL LA 60 MG CAP.SA.24H PO SCH (09:00)
[2022-04-25] MEDS ORDERED: ASCORBIC ACID 500 MG TAB PO SCH (09:00)
[2022-04-25] MEDS ORDERED: buPROPion XL 300 MG TAB.ER.24H PO SCH (09:00)
[2022-04-25] MEDS ORDERED: ASPIRIN 325 MG TAB PO SCH (09:00)
[2022-04-25] MEDS ORDERED: POTASSIUM CHLORIDE ER 10 MEQ TAB.ER.PRT PO SCH (09:00)
[2022-04-25] MEDS ORDERED: CYANOCOBALAMIN 500 MCG TAB PO SCH (09:00)
[2022-04-25] MEDS ORDERED: FUROSEMIDE 20 MG TAB PO SCH (09:00)
[2022-04-25] MEDS ORDERED: DULoxetine HCL 60 MG CAPSULE.DR PO SCH (09:00)
[2022-04-25] MEDS ORDERED: NON FORMULARY DRUG (Aspirin Ec 81 MG Tablet.Dr) PO SCH (09:00)
[2022-04-25] MEDS ORDERED: FERROUS SULFATE 325 MG TAB PO SCH (09:00)
[2022-04-25] MEDS ORDERED: LACTOBACILLUS ACIDOPH & BULGAR 1 EACH PACKET PO SCH (09:00)
[2022-04-25] MEDS ORDERED: buPROPion XL 150 MG TAB.ER.24H PO SCH (09:00)
[2022-04-25 10:07] LABS: Basophils # (A) 0.02 X 10*3/uL (0.00-0.10); Basophils % (A) 0.2 %; Eosinophils # (A) 0.13 X 10*3/uL (0.04-0.35); Eosinophils % (A) 1.6 %; HCT 43.8 % (37.2-46.3); HGB 13.3 g/dL (12.0-15.0); Immature Grans, Automated 0.4 %; Lymphocytes # (A) 1.84 X 10*3/uL (0.90-5.00); Lymphocytes % (A) 22.3 %; MCH 28.9 pg (27.0-32.0); MCHC 30.4 g/dL (32.0-37.0); MCV 95.2 fL (80.0-97.0); Mean Platelet Volume 11.5 fL (9.5-12.2); Monocytes # (A) 0.63 X 10*3/uL (0.20-1.00); Monocytes % (A) 7.6 %; NRBC Per 100 WBC 0 /100 WBCS (0.0-0.0); Neutrophils % (A) 67.9 %; Platelet Count 211 X 10*3/uL (140-440); RDW 15.2 % (11.5-14.5); WBC 8.25 X 10*3/uL (4.50-10.00)
[2022-04-25 11:41] LABS: ALT 26 U/L (8-44); AST 20 U/L (13-35); African American GFR (CKD) 122.6 (60.0-200.0); Albumin 4.2 g/dL (3.8-4.9); Albumin/Globulin Ratio 2.11 (1.60-3.17); Alkaline Phosphatase 60 U/L (41-126); BUN/Creat Ratio 24.12 Ratio (12.00-20.00); Blood Urea Nitrogen 11.6 mg/dL (9.0-27.0); Calcium 9.4 mg/dL (8.7-10.3); Carbon Dioxide 24.7 mmol/L (20.0-27.5); Chloride 106 mmol/L (96-109); Chol/HDL Ratio 4.37 Ratio; Glucose 130 mg/dL (70-110); LDL Cholesterol,Calculated 45.2 mg/dL (0.0-131.0); Non-African American GFR(CKD) 105.8 (60.0-200.0); Potassium 4.1 mmol/L (3.5-5.5); Sodium 143 mmol/L (135-145); Total Protein 6.2 g/dL (6.2-8.2)
--- NOTE | 2022-04-25 14:46 | P.PN ---
Subjective Progress Note Date: 04/25/22 This is a pleasant 61-year-old female with a history of hypertension, hyperlipidemia and diabetes mellitus. Presents to the hospital with symptoms of chest discomfort and dyspnea. She continues to have chest discomfort that is fairly constant or feels worse at times with palpation as well as after eating. She's also been having some abdominal discomfort and underwent an ultrasound of the abdomen this morning. Troponins have been negative 3. She did undergo a catheterization in January 2018 which showed normal coronary arteries. Most recent MPI done in August 2021 showed no evidence of stress-induced ischemia. Echocardiogram shows normal LV systolic function. Vital signs of been stable. She continues to have discomfort in the chest and abdomen. Vital signs are stable. Objective - Vital Signs Vital signs: Vital Signs Temp 97.6 F 04/25/22 07:00 Pulse 77 04/25/22 07:00 Resp 16 04/25/22 07:00 BP 120/67 04/25/22 07:00 Pulse Ox 93 L 04/25/22 07:00 FiO2 21 04/24/22 21:13 Intake & Output 04/24/22 04/25/22 04/25/22 18:59 06:59 18:59 Intake Total 118 970 Balance 118 970 Weight 88.451 kg Intake: Oral 118 970 Other: Voiding Method Toilet Toilet # Voids 1 2 - Exam PHYSICAL EXAMINATION: HEENT: Head is atraumatic, normocephalic. Pupils equal, round. Neck is supple. There is no elevated jugular venous pressure. HEART EXAMINATION: Heart sounds regular, S1 and S2 with a systolic ejection murmur. CHEST EXAMINATION: Lungs are clear to auscultation. Left chest wall and neck tenderness is noted on palpation. ABDOMEN: Soft, mildly tender. Bowel sounds are heard. No organomegaly noted. EXTREMITIES: 2+ peripheral pulses with no evidence of peripheral edema and no calf tenderness noted. NEUROLOGIC patient is awake, alert and oriented x3. . - Labs CBC & Chem 7: 04/25/22 06:17 04/25/22 06:17 Labs: Abnormal Lab Results - Last 24 Hours (Table) 04/25/22 Range/Units 06:17 MCHC 30.4 L (32.0-37.0) g/dL RDW 15.2 H (11.5-14.5) % Assessment and Plan Assessment: 1. Chest discomfort probably noncardiac no evidence to suggest acute coronary syndrome. Patient had an MPI less than a year ago that showed no evidence of stress-induced ischemia and her prior cardiac catheterization showed no evidence of obstructive disease 2. History of hypertension 3. History of hyperlipidemia 4. History of diabetes Plan: From cardiology perspective the pain appears to be noncardiac in nature and no further cardiac workup is necessary at this time. We'll follow-up with the patient as an outpatient. [employer] note has been reviewed, I agree with a documented findings and plan of care. Patient was seen and examined.
[2022-04-25] MEDS ORDERED: PANTOPRAZOLE 40 MG TABLET PO SCH (21:00)
--- NOTE | 2022-04-28 09:36 | P.DS ---
Providers Date of admission: 04/24/22 08:33 Expected date of discharge: 04/25/22 Attending physician: Gissell Calixto Consults: 04/24/22 08:24 Consult Physician Urgent Consulting Provider: [facility] Consult Reason/Comments: Chest pain Do you want consulting provider notified?: Yes Primary care physician: Shun Shaw Hospital Course: Final diagnosis Chest pain, possible unstable angina abdominal pain, possible gastroesophageal reflux disease Diabetes mellitus type 2 history of asthma multiple medical issues Discharge disposition Patient is being discharged in a stable condition with guarded prognosis to home . Patient will follow-up with Dr. Shaw in the outpatient setting upon discharge. Patient is to continue with Protonix twice daily for the next 2 w eeks and also follow up with cardiology in the outpatient setting. Total time taken is greater than 35 minutes. Hospital course This is a 61-year-old female who was recently admitted with chest pain and abdominal pain was being closely monitored. Patient was evaluated by cardiology and cleared for discharge for outpatient follow-up as they feel this chest pain is noncardiac in nature and patient also with continued abdominal pain. Gallbladder ultrasound nonsuggestive and patient continues with some abdominal discomfort. Patient tolerating diet and encourage small frequent meals and slowly advance as tolerated. Patient will continue on Protonix 40 mg twice daily for the next 2 weeks. Recommend repeat labs and close outpatient follow- up with primary care provider Dr. Shaw. Currently no reports of chest pain, shortness of breath, or palpitations. Patient is afebrile. No reports of nausea or vomiting and patient is tolerating diet. Patient will be discharged home today. Guarded prognosis. On exam vital signs are stable. Cardio S1, S2 are muffled. Respiratory system shows diminished breath sounds at the bases with no wheezing or rhonchi noted. Abdomen is soft and obese, and nontender. Nervous system shows no focal deficits. Please refer to medication reconciliation sheet for a list of medications. The impression and plan of care has been dictated by Radha Mcneal, Nurse Practitioner as directed. Dr. Durga MD I have performed a history and examination and MDM of this patient, discussed the same with the dictator, and agree with the dictator's assessment and plan as written ,documented as a scribe. Based on total visit time, I have performed more than 50% of the visit. Patient Condition at Discharge: Stable Plan - Discharge Summary Discharge Rx Participant: No New Discharge Prescriptions: New Pantoprazole [Protonix] 40 mg PO BID 15 Days #30 tab Continue Sucralfate [Carafate] 1 gm PO BID Beclomethasone Dipropionate [Qvar 80 mcg/puff] 1 puff INHALATION RT-BID metFORMIN HCL [Glucophage] 1,000 mg PO BID-W/MEALS DULoxetine HCL [Cymbalta] 120 mg PO DAILY Furosemide [Lasix] 20 mg PO DAILY Omeprazole [PriLOSEC] 20 mg PO BID-W/MEALS Montelukast [Singulair] 10 mg PO HS Potassium Chloride [Klor-Con 10] 10 meq PO DAILY Albuterol Inhaler [Ventolin Hfa Inhaler] 2 puff INHALATION RT-QID PRN PRN Reason: Shortness Of Breath Nitroglycerin Sl Tabs [Nitrostat] 0.4 mg SL Q5M PRN PRN Reason: Chest Pain Aspirin EC [Ecotrin Low Dose] 81 mg PO DAILY cycloSPORINE [Restasis] 1 drop BOTH EYES Q12H Docusate [Colace] 100 mg PO DAILY buPROPion HCL [Wellbutrin XL] 300 mg PO DAILY Cyclobenzaprine [Flexeril] 10 mg PO HS Melatonin 10 mg PO HS Ferrous Sulfate [Iron (65 MG Elemental)] 325 mg PO DAILY L.acidoph,Paracasei, B.lactis [Probiotic] 1 cap PO DAILY Ascorbic Acid [Vitamin C] 500 mg PO DAILY Evening Edmond Oil 1,000 mg PO FR Calcium/Magnes/[place] 1 tab PO TID Biotin [Biotin Disolve] 5,000 mcg PO DAILY Cyanocobalamin (Vitamin B-12) [Vitamin B-12] 1,000 mcg PO DAILY Triamcinolone 0.1% Ointment [Kenalog 0.1% Ointment] 1 applic TOPICAL DAILY PRN PRN Reason: SKIN DISCOLORATION Empagliflozin [Jardiance] 10 mg PO DAILY Mupirocin 2% Oint [Bactroban 2% Oint] 1 applic TOPICAL DAILY PRN PRN Reason: sores on legs Levothyroxine Sodium [Synthroid] 100 mcg PO DAILY lamoTRIgine [LaMICtal] 200 mg PO HS buPROPion XL [Wellbutrin XL] 150 mg PO DAILY ALPRAZolam [Xanax] 0.5 mg PO BID PRN PRN Reason: Anxiety Vitamin E 400 unit PO BID Omega3/Dha/Epa/Fish Oil/Vit D3 [[place]-3 + Vitamin D3 Softgel] 1 cap PO TID Vitamin D3(Unknown) 1 tab PO DAILY Cosamin Asu 1 tab PO DAILY Fluticasone Propionate 220 Mcg [Flovent 220 Mcg Inhaler] 2 puff INHALATION RT-BID Atorvastatin [Lipitor] 20 mg PO HS Dulaglutide [Trulicity] 0.75 mg SQ FR Propranolol HCl [Propranolol HCl ER] 120 mg PO DAILY Discontinued Ibuprofen [Motrin] 600 mg PO Q8H PRN PRN Reason: Pain Discharge Medication List Beclomethasone Dipropionate [Qvar 80 mcg/puff] 1 puff INHALATION RT-BID 08/05/14 [History] DULoxetine HCL [Cymbalta] 120 mg PO DAILY 08/05/14 [History] Furosemide [Lasix] 20 mg PO DAILY 08/05/14 [History] Montelukast [Singulair] 10 mg PO HS 08/05/14 [History] Omeprazole [PriLOSEC] 20 mg PO BID-W/MEALS 08/05/14 [History] Potassium Chloride [Klor-Con 10] 10 meq PO DAILY 08/05/14 [History] Sucralfate [Carafate] 1 gm PO BID 08/05/14 [History] metFORMIN HCL [Glucophage] 1,000 mg PO BID-W/MEALS 08/05/14 [History] Albuterol Inhaler [Ventolin Hfa Inhaler] 2 puff INHALATION RT-QID PRN 03/25/15 [History] Aspirin EC [Ecotrin Low Dose] 81 mg PO DAILY 03/25/15 [History] Nitroglycerin Sl Tabs [Nitrostat] 0.4 mg SL Q5M PRN 03/25/15 [History] cycloSPORINE [Restasis] 1 drop BOTH EYES Q12H 03/25/15 [History] Cyclobenzaprine [Flexeril] 10 mg PO HS 01/30/18 [History] Docusate [Colace] 100 mg PO DAILY 01/30/18 [History] Melatonin 10 mg PO HS 01/30/18 [History] buPROPion HCL [Wellbutrin XL] 300 mg PO DAILY 01/30/18 [History] Ferrous Sulfate [Iron (65 MG Elemental)] 325 mg PO DAILY 06/07/18 [History] ALPRAZolam [Xanax] 0.5 mg PO BID PRN 12/06/19 [History] Ascorbic Acid [Vitamin C] 500 mg PO DAILY 12/06/19 [History] Biotin [Biotin Disolve] 5,000 mcg PO DAILY 12/06/19 [History] Calcium/Magnes/[place] 1 tab PO TID 12/06/19 [History] Cyanocobalamin (Vitamin B-12) [Vitamin B-12] 1,000 mcg PO DAILY 12/06/19 [History] Empagliflozin [Jardiance] 10 mg PO DAILY 12/06/19 [History] Evening [place]mond Oil 1,000 mg PO FR 12/06/19 [History] L.acidoph,Paracasei, B.lactis [Probiotic] 1 cap PO DAILY 12/06/19 [History] Levothyroxine Sodium [Synthroid] 100 mcg PO DAILY 12/06/19 [History] Mupirocin 2% Oint [Bactroban 2% Oint] 1 applic TOPICAL DAILY PRN 12/06/19 [History] Triamcinolone 0.1% Ointment [Kenalog 0.1% Ointment] 1 applic TOPICAL DAILY PRN 12/06/19 [History] Vitamin E 400 unit PO BID 12/06/19 [History] buPROPion XL [Wellbutrin XL] 150 mg PO DAILY 12/06/19 [History] lamoTRIgine [LaMICtal] 200 mg PO HS 12/06/19 [History] Atorvastatin [Lipitor] 20 mg PO HS 04/24/22 [History] Cosamin Asu 1 tab PO DAILY 04/24/22 [History] Dulaglutide [Trulicity] 0.75 mg SQ FR 04/24/22 [History] Fluticasone Propionate 220 Mcg [Flovent 220 Mcg Inhaler] 2 puff INHALATION RT- BID 04/24/22 [History] Omega3/Dha/Epa/Fish Oil/Vit D3 [[place]-3 + Vitamin D3 Softgel] 1 cap PO TID 04/24/22 [History] Propranolol HCl [Propranolol HCl ER] 120 mg PO DAILY 04/24/22 [History] Vitamin D3(Unknown) 1 tab PO DAILY 04/24/22 [History] Pantoprazole [Protonix] 40 mg PO BID 15 Days #30 tab 04/25/22 [Rx] Follow up Appointment(s)/Referral(s): Shun Shaw DO [Primary Care Provider] - 1-2 days Ambulatory/Diagnostic Orders: Complete Blood Count w/diff [LAB.AMB] Time Frame: 3 Days, Location: None Selected Patient Instructions/Handouts: Pantoprazole (By mouth), Chest Pain (DC), Complete Blood Count (GEN) Activity/Diet/Wound Care/Special Instructions: Activity Limited until follow-up Follow-up primary care provider on discharge Follow-up with cardiology outpatient Continue current diet Continue Protonix twice daily for the next 2 weeks May need further outpatient testing with cardiology Discharge Disposition: HOME SELF-CARE
[2022-04-30] MEDS ORDERED: NON FORMULARY DRUG (Dulaglutide [Trulicity] 0.75 MG/0.5 ML Each) SQ SCH (13:06)
== END 2022-04-25 14:02 | disposition home or self-care (01) ==
LOC: EC 07:01 → 6NMEDSUR 08:33
PROVIDERS: ADMIT Hospitalist; ATTEND Hospitalist
DX: R07.89 Other chest pain (principal); R10.10 Upper abdominal pain, unspecified; R61 Generalized hyperhidrosis; J45.909 Unspecified asthma, uncomplicated; E66.9 Obesity, unspecified; Z68.35 Body mass index [BMI] 35.0-35.9, adult; I10 Essential (primary) hypertension; E78.5 Hyperlipidemia, unspecified; R06.00 Dyspnea, unspecified; M79.7 Fibromyalgia; R05.9 Cough, unspecified; R60.9 Edema, unspecified; R11.2 Nausea with vomiting, unspecified; K21.9 Gastro-esophageal reflux disease without esophagitis; E03.9 Hypothyroidism, unspecified; H93.25 Central auditory processing disorder; R13.10 Dysphagia, unspecified; K29.70 Gastritis, unspecified, without bleeding; K29.80 Duodenitis without bleeding; E11.43 Type 2 diabetes mellitus with diabetic autonomic (poly)neuropathy; E11.41 Type 2 diabetes mellitus with diabetic mononeuropathy; R60.0 Localized edema; G57.93 Unspecified mononeuropathy of bilateral lower limbs; K31.84 Gastroparesis; K58.9 Irritable bowel syndrome, unspecified; E11.40 Type 2 diabetes mellitus with diabetic neuropathy, unspecified; K76.0 Fatty (change of) liver, not elsewhere classified; G47.33 Obstructive sleep apnea (adult) (pediatric); H40.9 Unspecified glaucoma; L30.9 Dermatitis, unspecified; G47.00 Insomnia, unspecified; G43.909 Migraine, unspecified, not intractable, without status migrainosus; G89.29 Other chronic pain; M54.2 Cervicalgia; M54.50 Low back pain, unspecified; D64.9 Anemia, unspecified; F41.9 Anxiety disorder, unspecified; E78.00 Pure hypercholesterolemia, unspecified; F32.A Depression, unspecified; Z71.3 Dietary counseling and surveillance; Z71.9 Counseling, unspecified; Z90.710 Acquired absence of both cervix and uterus; Z90.49 Acquired absence of other specified parts of digestive tract; Z79.899 Other long term (current) drug therapy; Z79.51 Long term (current) use of inhaled steroids; Z79.84 Long term (current) use of oral hypoglycemic drugs; Z79.82 Long term (current) use of aspirin; Z79.890 Hormone replacement therapy; Z91.018 Allergy to other foods; Z91.011 Allergy to milk products; Z88.8 Allergy status to other drugs, medicaments and biological substances; Z80.42 Family history of malignant neoplasm of prostate; Z82.49 Family history of ischemic heart disease and other diseases of the circulatory system; Z80.3 Family history of malignant neoplasm of breast
CPT/HCPCS: 96376; 96374; 96361; 99285; 36415; 94640 ×2; 94760; 93005; 80061; 80053 ×2; 83735; 84484; 85025 ×2; 85610; 85730; 71046; 76705; G0378 ×2; C9113 ×2

== ENCOUNTER → 2022-04-27 | Outpatient (CLI) | payer BC ==
[2022-04-27 19:02] LABS: Basophils # (A) 0.05 X 10*3/uL (0.00-0.10); Basophils % (A) 0.7 %; Eosinophils # (A) 0.14 X 10*3/uL (0.04-0.35); Eosinophils % (A) 2.1 %; HCT 46.4 % (37.2-46.3); HGB 14.1 g/dL (12.0-15.0); Immature Grans, Automated 0.6 %; Lymphocytes # (A) 2.11 X 10*3/uL (0.90-5.00); Lymphocytes % (A) 31.3 %; MCH 29.4 pg (27.0-32.0); MCHC 30.4 g/dL (32.0-37.0); MCV 96.7 fL (80.0-97.0); Monocytes # (A) 0.54 X 10*3/uL (0.20-1.00); NRBC Per 100 WBC 0 /100 WBCS (0.0-0.0); Neutrophils # (A) 3.86 X 10*3/uL (1.80-7.70); Neutrophils % (A) 57.3 %; Platelet Count 216 X 10*3/uL (140-440); RDW 15.3 % (11.5-14.5); WBC 6.74 X 10*3/uL (4.50-10.00)
[2022-04-27 19:34] LABS: Anion Gap 16.7 mmol/L (10.00-18.00); BUN/Creat Ratio 18.17 Ratio (12.00-20.00); Blood Urea Nitrogen 10.9 mg/dL (9.0-27.0); Calcium 9.2 mg/dL (8.7-10.3); Carbon Dioxide 21.3 mmol/L (20.0-27.5); Non-African American GFR(CKD) 98.4 (60.0-200.0); Potassium 4.7 mmol/L (3.5-5.5)
== END | disposition home or self-care (01) ==
LOC: LABWHC1 12:50
PROVIDERS: ATTEND Registered Nurse
DX: D64.9 Anemia, unspecified (principal); R07.9 Chest pain, unspecified; R10.9 Unspecified abdominal pain
CPT/HCPCS: 36415; 80048; 85025

== ENCOUNTER → 2022-09-24 | Outpatient (CLI) | payer BC ==
[2022-09-24 23:40] LABS: African American GFR (CKD) 105.1 (60.0-200.0); Albumin 4.4 g/dL (3.8-4.9); Albumin/Globulin Ratio 1.73 (1.60-3.17); Anion Gap 14.5 mmol/L (10.00-18.00); BUN/Creat Ratio 25.21 Ratio (12.00-20.00); Calcium 9.6 mg/dL (8.7-10.3); Carbon Dioxide 24.6 mmol/L (20.0-27.5); Globulin 2.5 g/dL (1.6-3.3); HDL Cholesterol 35.3 mg/dL (40.00-60.00); Non-African American GFR(CKD) 90.7 (60.0-200.0); Potassium 4.6 mmol/L (3.5-5.5); Total Bilirubin 0.3 mg/dL (0.30-1.20); Total Protein 6.9 g/dL (6.2-8.2)
[2022-09-24 23:50] LABS: Chol/HDL Ratio 6.83 Ratio; LDL Cholesterol,Direct Reflex 83.4 mg/dL (0.00-129.00)
== END | disposition home or self-care (01) ==
LOC: LABWHC1 16:14
PROVIDERS: ATTEND Internal Medicine Interventional Cardiology
DX: E78.2 Mixed hyperlipidemia (principal)
CPT/HCPCS: 36415; 80053; 80061; 83721

== ENCOUNTER → 2023-01-10 | Outpatient (CLI) | payer BC ==
[2023-01-10 18:48] LABS: HDL Cholesterol 37.5 mg/dL (40.00-60.00)
[2023-01-10 19:17] LABS: Chol/HDL Ratio 4.99 Ratio; LDL Cholesterol,Direct Reflex 65.1 mg/dL (0.00-129.00)
== END | disposition home or self-care (01) ==
LOC: LABWHC1 12:53
PROVIDERS: ATTEND Internal Medicine Interventional Cardiology
DX: E78.2 Mixed hyperlipidemia (principal)
CPT/HCPCS: 36415; 80061; 83721; 84450; 84460

== ENCOUNTER 2023-03-21 05:02 | Inpatient (IN) | payer BC ==
[2023-03-21] MEDS ORDERED: ONDANSETRON 4 MG/2 ML VIAL IVP STA (05:31)
[2023-03-21] MEDS ORDERED: SODIUM CHLORIDE 0.9% 1,000 ML IV STA ×3 (05:31→07:03)
[2023-03-21] MEDS ORDERED: PANTOPRAZOLE 40 MG/10 ML VIAL IVP STA (05:31)
[2023-03-21 05:36] LABS: Glucose,Whole Blood 225 mg/dL (70-110)
--- NOTE | 2023-03-21 05:37 | ED ---
General Adult HPI - General Chief complaint: Abdominal Pain Stated complaint: Chest pain, stomach issues Time Seen by Provider: 03/21/23 05:24 Source: patient, RN notes reviewed, old records reviewed Mode of arrival: wheelchair Limitations: no limitations - History of Present Illness Initial comments: Patient is a 62-year-old female who presents emergency Department complaining of abdominal pain. She is also complaining of chest pain. Has been ongoing for 3 days. Has a history of asthma, angina, diabetes, fibromyalgia, hypertension, hyperlipidemia, IBS. States she has been having this nonspecific achy, abdominal discomfort located primarily periumbilically and in the epigastric region down the center she states. States it is been more or less constant over the last 3 days. Is associated with nonbloody diarrhea as well as nausea and nonbilious nonbloody emesis. Also is having some substernal and mild left-sided chest discomfort that does not radiate. States it feels like a achy, pressure sensation typical for her angina. States the chest discomfort comes and goes as well. Does have a history of anxiety and does note that is playing a lot will either. States she feels weak on her feet. Denies any urinary complaints. No fevers. No known sick contacts. No cough or congestion. No other acute complaints at this time. No history of abdominal surgeries. Presents for further evaluation at this time. - Related Data Home Medications Medication Instructions Recorded Confirmed Beclomethasone Dipropionate [Qvar 1 puff INHALATION RT-BID 08/05/14 12/17/22 80 mcg/puff] DULoxetine HCL [Cymbalta] 120 mg PO DAILY 08/05/14 12/21/22 Furosemide [Lasix] 20 mg PO DAILY 08/05/14 12/21/22 Montelukast [Singulair] 10 mg PO HS 08/05/14 12/21/22 Omeprazole [PriLOSEC] 20 mg PO BID-W/MEALS 08/05/14 12/21/22 Potassium Chloride [Klor-Con 10] 10 meq PO DAILY 08/05/14 12/21/22 Sucralfate [Carafate] 1 gm PO BID 08/05/14 12/21/22 metFORMIN HCL [Glucophage] 1,000 mg PO BID-W/MEALS 08/05/14 12/21/22 Albuterol Inhaler [Ventolin Hfa 2 puff INHALATION RT-QID PRN 03/25/15 12/17/22 Inhaler] Aspirin EC [Ecotrin Low Dose] 81 mg PO DAILY 03/25/15 12/21/22 Nitroglycerin Sl Tabs [Nitrostat] 0.4 mg SL Q5M PRN 03/25/15 12/21/22 cycloSPORINE [Restasis] 1 drop BOTH EYES Q12H 03/25/15 12/21/22 Cyclobenzaprine [Flexeril] 10 mg PO HS 01/30/18 12/21/22 Docusate [Colace] 100 mg PO DAILY 01/30/18 12/21/22 Melatonin 10 mg PO HS 01/30/18 12/21/22 buPROPion HCL [Wellbutrin XL] 300 mg PO DAILY 01/30/18 12/21/22 Ferrous Sulfate [Iron (65 MG 325 mg PO DAILY 06/07/18 12/21/22 Elemental)] ALPRAZolam [Xanax] 0.5 mg PO BID PRN 12/06/19 12/21/22 Ascorbic Acid [Vitamin C] 500 mg PO DAILY 12/06/19 12/21/22 Biotin [Biotin Disolve] 5,000 mcg PO DAILY 12/06/19 12/17/22 Calcium/Magnes/[place] 1 tab PO TID 12/06/19 12/17/22 Cyanocobalamin (Vitamin B-12) 1,000 mcg PO DAILY 12/06/19 12/17/22 [Vitamin B-12] Empagliflozin [Jardiance] 10 mg PO DAILY 12/06/19 12/21/22 Evening [place] Oil 1,000 mg PO FR 12/06/19 12/17/22 L.acidoph,Paracasei, B.lactis 1 cap PO DAILY 12/06/19 12/21/22 [Probiotic] Levothyroxine Sodium [Synthroid] 100 mcg PO DAILY 12/06/19 12/21/22 Mupirocin 2% Oint [Bactroban 2% 1 applic TOPICAL DAILY PRN 12/06/19 12/17/22 Oint] Triamcinolone 0.1% Ointment 1 applic TOPICAL DAILY PRN 12/06/19 12/21/22 [Kenalog 0.1% Ointment] Vitamin E 400 unit PO BID 12/06/19 12/17/22 buPROPion XL [Wellbutrin XL] 150 mg PO DAILY 12/06/19 12/21/22 lamoTRIgine [LaMICtal] 200 mg PO HS 12/06/19 12/21/22 Atorvastatin [Lipitor] 20 mg PO HS 04/24/22 12/21/22 Cosamin Asu 1 tab PO DAILY 04/24/22 12/17/22 Dulaglutide [Trulicity] 0.75 mg SQ FR 04/24/22 12/21/22 Omega3/Dha/Epa/Fish Oil/Vit D3 1 cap PO TID 04/24/22 12/17/22 [[place]-3 Plus Vitamin D3 Softgl] Propranolol HCl [Propranolol HCl 120 mg PO DAILY 04/24/22 12/21/22 ER] Vitamin D3(Unknown) 1 tab PO DAILY 04/24/22 12/17/22 Allergies Allergy/AdvReac Type Severity Reaction Status Date / Time desipramine HCl Allergy Rash/Hives Verified 12/17/22 10:04 [From Norpramin] gluten Allergy Abdominal Verified 12/17/22 10:04 Pain Milk Containing Products AdvReac Abdominal Verified 12/17/22 10:04 Pain YEAST AdvReac Unknown Abdominal Uncoded 12/17/22 10:04 Pain Review of Systems ROS Statement: Those systems with pertinent positive or pertinent negative responses have been documented in the HPI. Review of Systems: CONST: Denies fever EYES: Denies blurry vision ENT: Denies nasal congestion C/V: Endorses chest pain RESP: Denies shortness of breath GI: Endorses abdominal pain : Denies dysuria SKIN: Denies rash. MSK: Denies joint pain. NEURO: Denies headache ROS Other: All systems not noted in ROS Statement are negative. Past Medical History Past Medical History: Asthma, Chest Pain / Angina, Diabetes Mellitus, Eye Disorder, Fibromyalgia, GERD/Reflux, Hearing Disorder / Deafness, Hyperlipidemia, Hypertension, Skin Disorder, Sleep Apnea/CPAP/BIPAP, Thyroid Disorder Additional Past Medical History / Comment(s): Central auditory processing disorder/ROSEBUD, dysphagia, gastritis, duodenitis, gastroparesis, IBS, NIDDM type II, neuropathy bilateral legs/feet, fatty liver, [place] with Cpap, bilateral glaucoma, eczema, insomnia, hypothyroid, occasional lower leg edema, migraines, chronic cervical/across shoulder/low back pain, anemia, sinus issues. History of Any Multi-Drug Resistant Organisms: None Reported Past Surgical History: Adenoidectomy, Heart Catheterization, Hysterectomy, Orthopedic Surgery, Tonsillectomy Additional Past Surgical History / Comment(s): L hand bone/tendon surgery, R hand surgery d/t dog bite, bilateral carpal tunnel releases, EGD, colonoscopy, cardiac cath 2-3 yrs ago-states it was normal cataract leonidas surgery, rt index finger surgery, Past Anesthesia/Blood Transfusion Reactions: Postoperative Nausea & Vomiting (PONV) Past Psychological History: Anxiety, Depression Smoking Status: Never smoker Past Alcohol Use History: None Reported - Past Family History Mother Family Medical History: Cancer, Deep Vein Thrombosis (DVT) Additional Family Medical History / Comment(s): Mother of breast cancer. Father Family Medical History: Cancer, Deep Vein Thrombosis (DVT) Additional Family Medical History / Comment(s): Father of prostate cancer. General Exam - General Exam Comments Initial Comments: General: Appears in mild acute distress. HEAD: Normal with no signs of head trauma. EYES: PERRLA, EOMI, conjunctiva normal, no discharge. ENT: Hearing grossly intact, normal oropharynx. RESPIRATORY: Clear breath sounds bilaterally. No wheezes, rales, or rhonchi. C/V: Regular rate and rhythm. S1 and S2 auscultated, no edema, peripheral pulses 2+ and intact throughout ABD: Abdomen soft, tender to palpation in the epigastric as well as periumbilical region. No guarding. No peritoneal signs. No rebound tenderness. EXT: Normal range of motion, no obvious deformity SKIN: No rashes or lesions observed on exposed skin. NEURO: Alert and oriented 4. Limitations: no limitations Course Vital Signs 03/21/23 03/21/23 03/21/23 05:11 05:45 06:30 Temperature 96.9 F L Pulse Rate 72 76 77 Respiratory 16 18 17 Rate Blood Pressure 139/82 115/63 132/73 O2 Sat by Pulse 99 94 L 94 L Oximetry 03/21/23 03/21/23 06:40 06:50 Temperature Pulse Rate 79 79 Respiratory 20 18 Rate Blood Pressure 130/66 143/81 O2 Sat by Pulse 93 L 93 L Oximetry Medical Decision Making - Medical Decision Making Was pt. sent in by a medical professional or institution (Dr., PA, ARTIST RELATIONSHIP MANAGER, urgent care, hospital, or group home...) When possible be specific @ -No Did you speak to anyone other than the patient for history (EMS, parent, family, police, friend...)? What history was obtained from this source @ -No Did you review nursing and triage notes (agree or disagree)? Why? @ -I reviewed and agree with nursing and triage notes Were old charts reviewed (outside hosp., previous admission, EMS record, old EKG, old radiological studies, urgent care reports/EKG's, group home records)? Report findings @ -Old charts reviewed from April 2022 as well as November 2022 including cath report revealing normal coronary arteries. Differential Diagnosis (chest pain, altered mental status, abdominal pain women, abdominal pain men, vaginal bleeding, weakness, fever, dyspnea, syncope, headache, dizziness, GI bleed, back pain, seizure, CVA, palpatations, mental health, musculoskeletal)? @ -Differential Chest Pain: Stable Angina, Unstable Angina, STEMI, NSTEMI Aortic Dissection, Pneumothorax, Musculoskeletal, Esophageal Spasm GERD, Cholecystitis, Pancreatitis, Zoster, this is not meant to be an all-inclusive list. Differential Abdominal Pain Women: Appendicitis, Cholecystitis, diverticulosis, ischemic bowel, pancreatitis, hepatitis, UTI, gastroenteritis, AAA, incarcerated hernia, bowel obstruction, constipation, inflammatory bowel, hepatitis, peptic ulcer disease, splenic infarction, perforated viscus, vulvitis, ovarian torsion, PID, kidney stone, placenta abruption, this is not meant to be an all-inclusive list EKG interpreted by me (3pts min.). @ -As above X-rays interpreted by me (1pt min.). @ -Chest x-ray reveals no obvious acute cardio primary process. CT interpreted by me (1pt min.). @ -CT angiogram of the aorta reveals no obvious acute process of the chest, abdomen and pelvis. U/S interpreted by me (1pt. min.). @ -None done What testing was considered but not performed or refused? (CT, X-rays, U/S, labs)? Why? @ -None What meds were considered but not given or refused? Why? @ -Considered Aspirin, but the event that she is having an aortic issue we will avoid antiplatelet and anticoagulation at this time until CT imaging is completed. Did you discuss the management of the patient with other professionals (professionals i.e. , PA, ARTIST RELATIONSHIP MANAGER, lab, RT, psych nurse, group social worker, line inspector, teacher, sea air land officer, casework manager)? Give summary @ -Discussed with Dr. Pozo who accepted the patient. Was smoking cessation discussed for >3mins.? @ -No Was critical care preformed (if so, how long)? @ -No Were there social determinants of health that impacted care today? How? (Homelessness, low income, unemployed, alcoholism, drug addiction, transportation, low edu. Level, literacy, decrease access to med. care, [facility], rehab)? @ -No Was there de-escalation of care discussed even if they declined (Discuss DNR or withdrawal of care, Hospice)? DNR status @ -No What co-morbidities impacted this encounter? (DM, HTN, Smoking, COPD, CAD, Cancer, CVA, ARF, Chemo, Hep., AIDS, mental health diagnosis, sleep apnea, morbid obesity)? @ -None Was patient admitted / discharged? Hospital course, mention meds given and route, prescriptions, significant lab abnormalities, going to OR and other pertinent info. @ -Based on the patient's presentation and physical exam, she presents with chest pain and abdominal pain. She scribes down the center of her body. Due to her history as well as her description I am concerned for possible aortic injury at this time and we will obtain CT angiogram of the chest abdomen pelvis to evaluate the aorta. We'll also obtain cardiac labs, abdominal labs. She will be initially symptomatically treated with IV fluids, Protonix, Zofran. Nitroglycerin tablets will be administered to him that we will assess for improvement in symptoms. Patient was in agreement this plan. Vital signs within acceptable limits. EKG shows no signs of acute ischemia.Patient's labs are remarkable for a lactic acidosis of 2.7. Troponin is undetectable. Remainder the patient's laboratory studies are within acceptable limits. Imaging is still pending at this time. Patient's imaging is unremarkable. On reevaluation, he shins pain did improve with nitroglycerin tablets. We'll place the patient on nitroglycerin topical, provide her with an aspirin, and continued fluid hydration for her suspected dehydration from diarrhea and her lactic acidosis. Lactic acidosis likely secondary to dehydration. Patient was in agreement this plan. Cardiology will be consulted. We will trend her troponins, as her chest pain did resolve with nitro. Could be her typical anginal chest pain. I spoke with the admitting physician, Dr. pozo who accepted the patient. Undiagnosed new problem with uncertain prognosis? @ -No Drug Therapy requiring intensive monitoring for toxicity (Heparin, Nitro, Insulin, Cardizem)? @ -No Were any procedures done? @ -No Diagnosis/symptom? @ -Lactic acidosis, dehydration, abd pain of unknown etiology Acute, or Chronic, or Acute on Chronic? @ -Acute Uncomplicated (without systemic symptoms) or Complicated (systemic symptoms)? @ -Complicated Side effects of treatment? @ -none Exacerbation, Progression, or Severe Exacerbation] @ -no Poses a threat to life or bodily function? @ -no Diagnosis/symptom? @ -Chest pain with history of angina Acute, or Chronic, or Acute on Chronic? @ -Acute Uncomplicated (without systemic symptoms) or Complicated (systemic symptoms)? @ -Uncomplicated Side effects of treatment? @ -none Exacerbation, Progression, or Severe Exacerbation] @ -no Poses a threat to life or bodily function? @ -Potentially yes - Lab Data Result diagrams: 03/21/23 05:35 03/21/23 05:35 Lab Results 03/21/23 03/21/23 03/21/23 Range/Units 05:34 05:35 05:35 WBC 8.3 (3.8-10.6) k/uL RBC 4.90 (3.80-5.40) m/uL Hgb 14.9 (11.4-16.0) gm/dL Hct 45.3 (34.0-46.0) % MCV 92.5 (80.0-100.0) fL MCH 30.5 (25.0-35.0) pg MCHC 33.0 (31.0-37.0) g/dL RDW 14.1 (11.5-15.5) % Plt Count 251 (150-450) k/uL MPV 8.7 Neutrophils % 65 % Lymphocytes % 24 % Monocytes % 5 % Eosinophils % 3 % Basophils % 1 % Neutrophils # 5.4 (1.3-7.7) k/uL Lymphocytes # 2.0 (1.0-4.8) k/uL Monocytes # 0.4 (0-1.0) k/uL Eosinophils # 0.2 (0-0.7) k/uL Basophils # 0.1 (0-0.2) k/uL PT 10.0 (9.0-12.0) sec INR 0.9 (<1.2) APTT 22.1 (22.0-30.0) sec Sodium (137-145) mmol/L Potassium (3.5-5.1) mmol/L Chloride (98-107) mmol/L Carbon Dioxide (22-30) mmol/L Anion Gap mmol/L BUN (7-17) mg/dL Creatinine (0.52-1.04) mg/dL Est GFR (CKD-EPI)AfAm (>60 ml/min/1.73 sqM) Est GFR (CKD-EPI)NonAf (>60 ml/min/1.73 sqM) Glucose (74-99) mg/dL POC Glucose (mg/dL) 225 H (70-110) mg/dL POC Glu E Learning Coordinator ID Kendall, Quiana Plasma Lactic Acid Herman (0.7-2.0) mmol/L Calcium (8.4-10.2) mg/dL Total Bilirubin (0.2-1.3) mg/dL AST (14-36) U/L ALT (4-34) U/L Alkaline Phosphatase (38-126) U/L Troponin I (0.000-0.034) ng/mL NT-Pro-B Natriuret Pep pg/mL Total Protein (6.3-8.2) g/dL Albumin (3.5-5.0) g/dL Amylase (30-110) U/L Lipase (23-300) U/L Acetone, Qual (Negative) 03/21/23 03/21/23 03/21/23 Range/Units 05:35 05:35 05:35 WBC (3.8-10.6) k/uL RBC (3.80-5.40) m/uL Hgb (11.4-16.0) gm/dL Hct (34.0-46.0) % MCV (80.0-100.0) fL MCH (25.0-35.0) pg MCHC (31.0-37.0) g/dL RDW (11.5-15.5) % Plt Count (150-450) k/uL MPV Neutrophils % % Lymphocytes % % Monocytes % % Eosinophils % % Basophils % % Neutrophils # (1.3-7.7) k/uL Lymphocytes # (1.0-4.8) k/uL Monocytes # (0-1.0) k/uL Eosinophils # (0-0.7) k/uL Basophils # (0-0.2) k/uL PT (9.0-12.0) sec INR (<1.2) APTT (22.0-30.0) sec Sodium 140 (137-145) mmol/L Potassium 4.3 (3.5-5.1) mmol/L Chloride 101 (98-107) mmol/L Carbon Dioxide 25 (22-30) mmol/L Anion Gap 14 mmol/L BUN 12 (7-17) mg/dL Creatinine 0.53 (0.52-1.04) mg/dL Est GFR (CKD-EPI)AfAm >90 (>60 ml/min/1.73 sqM) Est GFR (CKD-EPI)NonAf >90 (>60 ml/min/1.73 sqM) Glucose 250 H (74-99) mg/dL POC Glucose (mg/dL) (70-110) mg/dL POC Glu E Learning Coordinator ID Plasma Lactic Acid Herman 3.7 H* (0.7-2.0) mmol/L Calcium 9.6 (8.4-10.2) mg/dL Total Bilirubin 0.5 (0.2-1.3) mg/dL AST 26 (14-36) U/L ALT 28 (4-34) U/L Alkaline Phosphatase 85 (38-126) U/L Troponin I <0.012 (0.000-0.034) ng/mL NT-Pro-B Natriuret Pep pg/mL Total Protein 6.9 (6.3-8.2) g/dL Albumin 4.4 (3.5-5.0) g/dL Amylase 49 (30-110) U/L Lipase 295 (23-300) U/L Acetone, Qual (Negative) 03/21/23 03/21/23 Range/Units 05:35 05:35 WBC (3.8-10.6) k/uL RBC (3.80-5.40) m/uL Hgb (11.4-16.0) gm/dL Hct (34.0-46.0) % MCV (80.0-100.0) fL MCH (25.0-35.0) pg MCHC (31.0-37.0) g/dL RDW (11.5-15.5) % Plt Count (150-450) k/uL MPV Neutrophils % % Lymphocytes % % Monocytes % % Eosinophils % % Basophils % % Neutrophils # (1.3-7.7) k/uL Lymphocytes # (1.0-4.8) k/uL Monocytes # (0-1.0) k/uL Eosinophils # (0-0.7) k/uL Basophils # (0-0.2) k/uL PT (9.0-12.0) sec INR (<1.2) APTT (22.0-30.0) sec Sodium (137-145) mmol/L Potassium (3.5-5.1) mmol/L Chloride (98-107) mmol/L Carbon Dioxide (22-30) mmol/L Anion Gap mmol/L BUN (7-17) mg/dL Creatinine (0.52-1.04) mg/dL Est GFR (CKD-EPI)AfAm (>60 ml/min/1.73 sqM) Est GFR (CKD-EPI)NonAf (>60 ml/min/1.73 sqM) Glucose (74-99) mg/dL POC Glucose (mg/dL) (70-110) mg/dL POC Glu E Learning Coordinator ID Plasma Lactic Acid Herman (0.7-2.0) mmol/L Calcium (8.4-10.2) mg/dL Total Bilirubin (0.2-1.3) mg/dL AST (14-36) U/L ALT (4-34) U/L Alkaline Phosphatase (38-126) U/L Troponin I (0.000-0.034) ng/mL NT-Pro-B Natriuret Pep 38 pg/mL Total Protein (6.3-8.2) g/dL Albumin (3.5-5.0) g/dL Amylase (30-110) U/L Lipase (23-300) U/L Acetone, Qual Negative (Negative) - EKG Data -: EKG Interpreted by Me EKG Comments: 12-lead Electrocardiogram Interpretation Note EKG was reviewed and interpreted by myself. 12-lead ECG performed at 0522 is interpreted by me as revealing normal sinus rhythm at a rate of 75 beats per minute. Left axis deviation. MD interval is 161 ms, QRS duration is 104 ms, QTc is 425 ms.. There were no ST or T wave abnormalities to suggest myocardial ischemia or injury. R wave progression across the precordium was satisfactory. By my interpretation this EKG is non-diagnostic for acute ischemia. When compared with EKG from April 2022, no significant change. Disposition Clinical Impression: Abdominal pain of unknown etiology, Diarrhea, Chest pain, Lactic acidosis, Dehydration Disposition: ADMITTED IP TO THIS HOSP Condition: Stable Referrals: Shun Shaw DO [Primary Care Provider] - 1-2 days Time of Disposition: 06:55
[2023-03-21] MEDS: NITROGLYCERIN SL TABS 0.4 MG TAB SUBLINGUAL PRN ×2 (05:40→05:47)
[2023-03-21 05:43] LABS: Basophils # (A) 0.1 k/uL (0-0.2); Basophils % (A) 1 %; Eosinophils # (A) 0.2 k/uL (0-0.7); Eosinophils % (A) 3 %; HCT 45.3 % (34.0-46.0); HGB 14.9 gm/dL (11.4-16.0); Lymphocytes % (A) 24 %; MCH 30.5 pg (25.0-35.0); MCV 92.5 fL (80.0-100.0); Mean Platelet Volume 8.7; Monocytes # (A) 0.4 k/uL (0-1.0); Monocytes % (A) 5 %; Neutrophils # (A) 5.4 k/uL (1.3-7.7); Neutrophils % (A) 65 %; Platelet Count 251 k/uL (150-450); RDW 14.1 % (11.5-15.5); WBC 8.3 k/uL (3.8-10.6)
[2023-03-21 05:53] LABS: ALT 28 U/L (4-34); AST 26 U/L (14-36); African American GFR (CKD) >90 (>60 ml/min/1.73 sqM); Albumin 4.4 g/dL (3.5-5.0); Alkaline Phosphatase 85 U/L (38-126); Amylase 49 U/L (30-110); Anion Gap 14 mmol/L; Blood Urea Nitrogen 12 mg/dL (7-17); Calcium 9.6 mg/dL (8.4-10.2); Carbon Dioxide 25 mmol/L (22-30); Chloride 101 mmol/L (98-107); Glucose 250 mg/dL (74-99); Lipase 295 U/L (23-300); Non-African American GFR(CKD) >90 (>60 ml/min/1.73 sqM); Potassium 4.3 mmol/L (3.5-5.1); Sodium 140 mmol/L (137-145); Total Bilirubin 0.5 mg/dL (0.2-1.3); Total Protein 6.9 g/dL (6.3-8.2)
[2023-03-21 06:09] LABS: INR 0.9 (<1.2); Partial Thromboplastin Time 22.1 sec (22.0-30.0)
--- NOTE | 2023-03-21 06:41 | XR ---
EXAMINATION TYPE: XR chest 2V DATE OF EXAM: 03/21/2023 COMPARISON: Chest x-ray April 24, 2022 HISTORY: Abdominal and chest pain TECHNIQUE: Frontal and lateral views of the chest are obtained. FINDINGS: Diminished inspiration on current study. Cardiac silhouette size is more prominent with ce ntral vascular congestion. No pleural effusion or pneumothorax is seen bilaterally. The osseous stru ctures are intact. IMPRESSION: Central vascular congestion. Correlate for CHF exacerbation versus product of poor inspi ration.
--- NOTE | 2023-03-21 06:46 | CT ---
EXAMINATION TYPE: CT angio thor/abd pel aorta DATE OF EXAM: 03/21/2023 COMPARISON: None. HISTORY: Chest and abdominal pain. CT DLP: 1550 mGycm. Automated Exposure Control for Dose Reduction was Utilized. CONTRAST: CTA scan of the entire aorta is performed without oral and without and with IV Contrast, patient inje cted with 100 mL of Isovue 370. Three-D reconstructed images are created on an independent workstatio n and reviewed. FINDINGS: VASCULAR: Satisfactory enhancement of the central pulmonary arteries. There is normal three-vessel or igin from the aortic arch. No significant plaque or stenosis. Patent celiac artery and SMA without si gnificant plaque or stenosis. Patent ANN and bilateral single renal arteries without significant sten osis. Mild to moderate mixed peripheral plaque in the infrarenal abdominal aorta without significant stenosis. Mild plaque in the iliac arteries without significant stenosis. No significant plaque or st enosis in the femoral artery branches. No linear hypodensity to suggest dissection. No aneurysm. LUNGS: Focal linear scarring and/or atelectasis in the lingula. Right lung is clear. There is no ple ural effusion or pneumothorax seen. The tracheobronchial tree is patent. MEDIASTINUM: There are no greater than 1 cm hilar or mediastinal lymph nodes. No cardiomegaly or pe ricardial effusion is seen. LIVER/GB: Hepatomegaly. PANCREAS: No significant abnormality is seen. SPLEEN: No significant abnormality is seen. ADRENALS: No significant abnormality is seen. KIDNEYS: No significant abnormality is seen. BOWEL: No significant abnormality is seen. LYMPH NODES: No greater than 1cm abdominal lymph nodes are appreciated. OSSEOUS STRUCTURES: Hemangioma is present involving T11 vertebra. OTHER: No significant additional abnormality is seen. IMPRESSION: No thoracic or abdominal aortic aneurysm or dissection. No acute findings are evident.
[2023-03-21] MEDS ORDERED: ASPIRIN 81 MG PO STA (06:47)
[2023-03-21] MEDS ORDERED: NALOXONE 0.4 MG/ML 1 ML VIAL IV PRN (07:27)
[2023-03-21] MEDS ORDERED: ONDANSETRON 4 MG/2 ML VIAL IVP PRN (07:27)
[2023-03-21] MEDS: HEPARIN SODIUM,PORCINE/PF 5,000 UNIT/0.5 ML SYRINGE SQ SCH ×3 (07:50→16:27)
[2023-03-21] MEDS ORDERED: MORPHINE SULFATE 2 MG/ML SYRINGE IVP STA (07:50)
[2023-03-21] MEDS: NITROGLYCERIN OINT 1 INCH/GM PACKET TOPICAL SCH ×2 (07:50→16:27)
[2023-03-21] MEDS ORDERED: HYDROcodone/APAP 5-325MG 1 EACH TAB PO PRN (10:18)
[2023-03-21] MEDS ORDERED: HYDROcodone/APAP 5-325MG 1 EACH TAB PO STA (10:18)
--- NOTE | 2023-03-21 10:25 | P.HPIM ---
History of Present Illness This is a pleasant 62 years old female with multiple medical problems as below. She is a patient of Dr. Shaw Patient presents because she was not feeling well for the last 4 days originally came because of epigastric pain and tenderness that is been going on for the last 3-4 days, about 8/10 in severity, currently 6/10 in severity as she describes as constant nonspecific with no relieving or precipitating factors. Patient has been having little nausea and vomiting once when she came to emergency room there was no blood. Patient also complained from diarrhea she states that she had about 15 bowel movements yesterday about 3-4 times this morning and she has poor appetite however patient does not look dehydrated. Also patient has been complaining from chest pain about 2 days on and off but it was more severe when she came in about 8/10, constant, no relieving or precipitating factors except with medication. No dyspnea little dry cough. Patient has been complaining also from trouble urinating with little dysuria and more frequency over the last 3-4 days. Also she is complaining from headache, frontal, she says she sees Dr. Leach neurologist for her frontal headache but it was more severe over the last 3-4 days, she says she started taking more ibuprofen 600 mg 1-2 tablets for about 5- 6 times a day for the last 3-4 days because of her headache. She states her vision is little blurry but not bowel and no double vision, no slurred speech. She thinks that her right leg is little weaker than left leg however on examination I did not appreciate any weakness, her gait is little bit limping on the right side. She couldn get up from the bed by herself and walk by herself without the walker. She denies smoking alcohol or illicit drugs Patient however complains no sneezing but little nasal congestion. Vital signs stable and patient is afebrile Patient has unremarkable CBC, INR, BMP and liver enzymes. Glucose elevated to 250. Lactic acid elevated 3.7 Troponin is negative, proBNP 38. Lipase 295 which is within the reference range. Acetone is negative. CT angiogram of the thoracic and abdominal pelvis aorta, hepatomegaly, atelectasis. No evidence of thoracic or abdominal aortic aneurysm or dissection Chest x-ray: No acute process when I reviewed the images EKG showing normal sinus rhythm at [address]-T changes. Emergency room patient received Protonix and a bolus of 2 L normal saline and continued on 100 mL per hour Review of Systems Review of systems CONSTITUTIONAL: No fever, no malaise, no fatigue. HEENT: No recent visual problems or hearing problems. Denied any sore throat. CARDIOVASCULAR: No orthopnea, PND, no palpitations, no syncope. PULMONARY: No shortness of breath, no cough, no hemoptysis. -GASTROINTESTINAL: As above. -NEUROLOGICAL: As above. HEMATOLOGICAL: Denies any bleeding or petechiae. -GENITOURINARY: As above. MUSCULOSKELETAL/RHEUMATOLOGICAL: Denies any joint pain, swelling, or any muscle pain. ENDOCRINE: Denies any polyuria or polydipsia. Past Medical History Past Medical History: Asthma, Chest Pain / Angina, Diabetes Mellitus, Eye Disord er, Fibromyalgia, GERD/Reflux, Hearing Disorder / Deafness, Hyperlipidemia, Hypertension, Skin Disorder, Sleep Apnea/CPAP/BIPAP, Thyroid Disorder Additional Past Medical History / Comment(s): Central auditory processing disorder/[place], dysphagia, gastritis, duodenitis, gastroparesis, IBS, NIDDM type II, neuropathy bilateral legs/feet, fatty liver, [place] with Cpap, bilateral gl [place], eczema, insomnia, hypothyroid, occasional lower leg edema, migraines, chronic cervical/across shoulder/low back pain, anemia, sinus issues. History of Any Multi-Drug Resistant Organisms: None Reported Past Surgical History: Adenoidectomy, Heart Catheterization, Hysterectomy, Orthopedic Surgery, Tonsillectomy Additional Past Surgical History / Comment(s): L hand bone/tendon surgery, R hand surgery d/t dog bite, bilateral carpal tunnel releases, EGD, colonoscopy, cardiac cath 2-3 yrs ago-states it was normal cataract leonidas surgery, rt index finger surgery, Past Anesthesia/Blood Transfusion Reactions: Postoperative Nausea & Vomiting (PONV) Past Psychological History: Anxiety, Depression Smoking Status: Never smoker Past Alcohol Use History: None Reported - Past Family History Mother Family Medical History: Cancer, Deep Vein Thrombosis (DVT) Additional Family Medical History / Comment(s): Mother of breast cancer. Father Family Medical History: Cancer, Deep Vein Thrombosis (DVT) Additional Family Medical History / Comment(s): Father of prostate cancer. Medications and Allergies Home Medications Medication Instructions Recorded Confirmed Type Beclomethasone Dipropionate [Qvar 1 puff INHALATION RT-BID 08/05/14 12/17/22 History 80 mcg/puff] DULoxetine HCL [Cymbalta] 120 mg PO DAILY 08/05/14 12/21/22 History Furosemide [Lasix] 20 mg PO DAILY 08/05/14 12/21/22 History Montelukast [Singulair] 10 mg PO HS 08/05/14 12/21/22 History Omeprazole [PriLOSEC] 20 mg PO BID-W/MEALS 08/05/14 12/21/22 History Potassium Chloride [Klor-Con 10] 10 meq PO DAILY 08/05/14 12/21/22 History Sucralfate [Carafate] 1 gm PO BID 08/05/14 12/21/22 History metFORMIN HCL [Glucophage] 1,000 mg PO BID-W/MEALS 08/05/14 12/21/22 History Albuterol Inhaler [Ventolin Hfa 2 puff INHALATION RT-QID PRN 03/25/15 12/17/22 History Inhaler] Aspirin EC [Ecotrin Low Dose] 81 mg PO DAILY 03/25/15 12/21/22 History Nitroglycerin Sl Tabs [Nitrostat] 0.4 mg SL Q5M PRN 03/25/15 12/21/22 History cycloSPORINE [Restasis] 1 drop BOTH EYES Q12H 03/25/15 12/21/22 History Cyclobenzaprine [Flexeril] 10 mg PO HS 01/30/18 12/21/22 History Docusate [Colace] 100 mg PO DAILY 01/30/18 12/21/22 History Melatonin 10 mg PO HS 01/30/18 12/21/22 History buPROPion HCL [Wellbutrin XL] 300 mg PO DAILY 01/30/18 12/21/22 History Ferrous Sulfate [Iron (65 MG 325 mg PO DAILY 06/07/18 12/21/22 History Elemental)] ALPRAZolam [Xanax] 0.5 mg PO BID PRN 12/06/19 12/21/22 History Ascorbic Acid [Vitamin C] 500 mg PO DAILY 12/06/19 12/21/22 History Biotin [Biotin Disolve] 5,000 mcg PO DAILY 12/06/19 12/17/22 History Calcium/Magnes/[place] 1 tab PO TID 12/06/19 12/17/22 History Cyanocobalamin (Vitamin B-12) 1,000 mcg PO DAILY 12/06/19 12/17/22 History [Vitamin B-12] Empagliflozin [Jardiance] 10 mg PO DAILY 12/06/19 12/21/22 History Evening [place] Oil 1,000 mg PO FR 12/06/19 12/17/22 History L.acidoph,Paracasei, B.lactis 1 cap PO DAILY 12/06/19 12/21/22 History [Probiotic] Levothyroxine Sodium [Synthroid] 100 mcg PO DAILY 12/06/19 12/21/22 History Mupirocin 2% Oint [Bactroban 2% 1 applic TOPICAL DAILY PRN 12/06/19 12/17/22 History Oint] Triamcinolone 0.1% Ointment 1 applic TOPICAL DAILY PRN 12/06/19 12/21/22 History [Kenalog 0.1% Ointment] Vitamin E 400 unit PO BID 12/06/19 12/17/22 History buPROPion XL [Wellbutrin XL] 150 mg PO DAILY 12/06/19 12/21/22 History lamoTRIgine [LaMICtal] 200 mg PO HS 12/06/19 12/21/22 History Atorvastatin [Lipitor] 20 mg PO HS 04/24/22 12/21/22 History Cosamin Asu 1 tab PO DAILY 04/24/22 12/17/22 History Dulaglutide [Trulicity] 0.75 mg SQ FR 04/24/22 12/21/22 History Omega3/Dha/Epa/Fish Oil/Vit D3 1 cap PO TID 04/24/22 12/17/22 History [[place]-3 Plus Vitamin D3 Softgl] Propranolol HCl [Propranolol HCl 120 mg PO DAILY 04/24/22 12/21/22 History ER] Vitamin D3(Unknown) 1 tab PO DAILY 04/24/22 12/17/22 History Allergies Allergy/AdvReac Type Severity Reaction Status Date / Time desipramine HCl Allergy Rash/Hives Verified 12/17/22 10:04 [From Norpramin] gluten Allergy Abdominal Verified 12/17/22 10:04 Pain Milk Containing Products AdvReac Abdominal Verified 12/17/22 10:04 Pain YEAST AdvReac Unknown Abdominal Uncoded 12/17/22 10:04 Pain Physical Exam Vitals: Vital Signs Temp Pulse Resp BP Pulse Ox 03/21/23 07:50 76 16 134/68 96 03/21/23 07:40 78 16 144/74 92 L 03/21/23 07:30 79 16 03/21/23 07:20 76 17 141/71 95 03/21/23 07:10 77 16 129/80 93 L 03/21/23 07:00 76 18 143/81 94 L 03/21/23 06:50 79 18 143/81 93 L 03/21/23 06:40 79 20 130/66 93 L 03/21/23 06:30 77 17 132/73 94 L 03/21/23 05:45 76 18 115/63 94 L 03/21/23 05:11 96.9 F L 72 16 139/82 99 Intake and Output 03/20/23 03/21/23 03/21/23 22:59 06:59 14:59 Other: Weight 92.986 kg -GENERAL: The patient is alert and oriented x3, not in any acute distress. Obese HEENT: Pupils are round and equally reacting to light. EOMI. No scleral icterus. No conjunctival pallor. Normocephalic, atraumatic. No pharyngeal erythema. No thyromegaly. CARDIOVASCULAR: S1 and S2 present. No murmurs, rubs, or gallops. PULMONARY: Chest is clear to auscultation, no wheezing or crackles. -ABDOMEN: Soft, epigastric tenderness with no guarding or rebound tenderness, nondistended, normoactive bowel sounds. No palpable organomegaly. MUSCULOSKELETAL: No joint swelling or deformity. EXTREMITIES: No cyanosis, clubbing, or pedal edema. NEUROLOGICAL: Gross neurological examination did not reveal any focal deficits. SKIN: No rashes. no petechiae. -Gait: Get up and go test is normal but patient has little limping on the right leg Results CBC & Chem 7: 03/21/23 05:35 03/21/23 05:35 Labs: Abnormal Lab Results - Last 24 Hours (Table) 03/21/23 03/21/23 03/21/23 Range/Units 05:34 05:35 05:35 Glucose 250 H (74-99) mg/dL POC Glucose (mg/dL) 225 H (70-110) mg/dL Plasma Lactic Acid Herman 3.7 H* (0.7-2.0) mmol/L Assessment and Plan Assessment: Epigastric pain and tenderness could be related to gastric irritation from NSAID abuse More frequent frontal headache, could be related to mild frontal sinusitis which may contributing to her worsening headache, patient follow-up with the neurologist as an outpatient for headache which is more frequent recently Urinary discomfort with dysuria, rule out UTI Elevated lactic acid Chest pain, most likely related to NSAID abuse, rule out cardiac causes although the chances are everted Hypertension Hyperlipidemia Diabetes mellitus History of GERD History of osteoarthritis History of fibromyalgia History of GERD History of sleep apnea Hypothyroidism History of gastroparesis and irritable bowel syndrome The particular neuropathy History of glaucoma History of migraine Chronic cervical and low back pain Chronic anemia History of anxiety and depression polypharmacy Obesity with BMI of 37.5 Plan: Continue with IV fluid Monitored lactic acid Patient's symptoms could be related to her NSAIDs overuse for her headache. Therefore we will stop NSAIDs and patient counseled against using them. We will add [place] for pain control Consults surgery team for her abdominal pain and tenderness (no GI service in this hospital today ) Check for C. diff His chest pain does not look cardiac in nature and she had recent cardiac cath which was unremarkable and evaluated by management advisor about 2 months ago for similar problem, Lu management advisor to rule out the causes Given her worsening headache we will call for neurology consult check ua add protonix add claritin for possible sinusitis Labs and medication were reviewed.. Continue same treatment. Continue with sym ptomatic treatment. Resume home medication. Monitor labs and vitals. DVT and GI prophylaxis. Further recommendations as per clinical course of the patient DVT prophylaxis: Subcutaneous heparin GI Prophylaxis: Ppi PT/OT: Pending Prognosis is guarded
[2023-03-21] MEDS: LORATADINE 10 MG TAB PO SCH (11:14)
[2023-03-21 11:41] LABS: Appearance,Urine Clear (Clear); Bilirubin,Urine Negative (Negative); Blood,Urine Negative (Negative); Color,Urine Light Yellow; Glucose,Urine (UA) 4+ (Negative); Ketones,Urine 1+ (Negative); Leukocyte Esterase,Urine Negative (Negative); Nitrite,Urine Negative (Negative); Protein,Urine Negative (Negative); Urobilinogen,Urine <2.0 mg/dL (<2.0)
[2023-03-21 11:43] LABS: Specific Gravity,Urine >1.050 (1.001-1.035)
[2023-03-21] MEDS ORDERED: BUTALB/APAP/CAFF 50-325-40MG TAB PO PRN (14:11)
--- NOTE | 2023-03-21 14:36 | P.CNNES ---
History of Present Illness Consult date: 03/21/23 Requesting physician: José Miguel Oakley Reason for Consult: Worsening headache History of Present Illness: Patient is a 62-year-old right-handed female, with history of hypertension, diabetes, migraine headaches, came to the hospital early this morning at 5:02 AM for 4 days of not feeling well. She had bad stomach pain, headache, chest pain, angina, couldn't seem to shake it off therefore she decided to come to the ER. Patient states she has history of migraines for 15 years, which would occur about 3 times a week, and sometimes may not occur for 6 weeks. However she believes that the migraines are getting more frequent. The migraines are bifrontal, involves the forehead region, and behind the eyes and sometimes lower part of back of the head, rates her headache 8-9/10, once happens, lasts rest of the day. She gets nausea, occasionally vomits, has photophobia, phonophobia, aching throbbing headache, with occasional pressure pain. Her headache triggers are sometimes weather changes. She follows up with Dr. Leach, who have prescribed only ibuprofen, no other prescription medications. She does get waylon etimes occipital nerve blocks for her headaches. Patient states that in the last 4 days, she has been having headache almost daily. The location and quality of the headache remains the same as mentioned above. She is noticing that for the last couple days, she is having trouble walking straight, as she veers to one or the other side sometimes. Denies any slurred speech facial droop, or any focal symptoms. Vital signs on arrival blood pressure 139/82, which came down to 115/63, pulse rate 72 temperature 96.9. Blood test shows normal CBC with differential, normal PT/PTT, normal CMP, lactate 3.7, blood glucose is elevated, UA is negative, acetone negative. Chest x-ray showed central vascular congestion. Correlate for CHF exacerbation versus product of poor inspiration. EKG shows sinus rhythm, CT angiogram thoracic/abdomen pelvis aorta showed no thoracic or abdominal aortic aneurysm or dissection. No acute findings are evident. Patient has history of hypertension, diabetes for 15 years. She has obstructive sleep apnea, uses CPAP machine. Home medications include Zofran, Protonix, nitroglycerin, takes aspirin 81 mg daily. Patient denies any tobacco or alcohol use. She does not overdoes on coffee. Patient states her parents also used to have migraines. Review of Systems She has mild blood per rectum. Not very concerning for her. Constitutional: Denies chills, Denies fever Eyes: bilateral blurred vision, denies diplopia, denies pain, denies loss of vision Ears: bilateral: decreased hearing, tinnitus, deny: ear discharge Ears, nose, mouth and throat: Reports headache, Reports sinus pain, Reports sinus pressure, Denies sore throat Cardiovascular: Reports chest pain, Reports shortness of breath Respiratory: Reports cough, Reports excessive sputum Gastrointestinal: Reports abdominal pain, Reports bloating, Reports BRBPR, Reports diarrhea, Reports nausea, Reports vomiting Genitourinary: Reports urge incontinence, Reports urgency, Reports urinary frequency, Denies dysuria, Denies hematuria Musculoskeletal: Reports low back pain, Reports neck pain, Denies myalgias Integumentary: Denies pruritus, Denies rash Neurological: Reports as per HPI Psychiatric: Reports anxiety, Reports depression Endocrine: Reports fatigue, Denies palpitations, Denies weight change Hematologic/Lymphatic: Reports easy bruising, Denies easy bleeding Past Medical History Past Medical History: Asthma, Chest Pain / Angina, Diabetes Mellitus, Eye Disorder, Fibromyalgia, GERD/Reflux, Hearing Disorder / Deafness, Hyperlipidemia, Hypertension, Skin Disorder, Sleep Apnea/CPAP/BIPAP, Thyroid Disorder Additional Past Medical History / Comment(s): Central auditory processing disorder/[place], dysphagia, gastritis, duodenitis, gastroparesis, IBS, NIDDM type II, neuropathy bilateral legs/feet, fatty liver, [place] with Cpap, bilateral glaucoma, eczema, insomnia, hypothyroid, occasional lower leg edema, migraines, chronic cervical/across shoulder/low back pain, anemia, sinus issues. History of Any Multi-Drug Resistant Organisms: None Reported Past Surgical History: Adenoidectomy, Heart Catheterization, Hysterectomy, Orthopedic Surgery, Tonsillectomy Additional Past Surgical History / Comment(s): L hand bone/tendon surgery, R hand surgery d/t dog bite, bilateral carpal tunnel releases, EGD, colonoscopy, cardiac cath 2-3 yrs ago-states it was normal cataract leonidas surgery, rt index finger surgery, Past Anesthesia/Blood Transfusion Reactions: Postoperative Nausea & Vomiting (PONV) Past Psychological History: Anxiety, Depression Smoking Status: Never smoker Past Alcohol Use History: None Reported - Past Family History Mother Family Medical History: Cancer, Deep Vein Thrombosis (DVT) Additional Family Medical History / Comment(s): Mother of breast cancer. Father Family Medical History: Cancer, Deep Vein Thrombosis (DVT) Additional Family Medical History / Comment(s): Father of prostate cancer. Medications and Allergies Home Medications Medication Instructions Recorded Confirmed Type Beclomethasone Dipropionate [Qvar 1 puff INHALATION RT-BID 08/05/14 03/21/23 H istory 80 mcg/puff] DULoxetine HCL [Cymbalta] 120 mg PO DAILY 08/05/14 03/21/23 History Furosemide [Lasix] 20 mg PO DAILY 08/05/14 03/21/23 History Montelukast [Singulair] 10 mg PO HS 08/05/14 03/21/23 History Omeprazole [PriLOSEC] 20 mg PO BID-W/MEALS 08/05/14 03/21/23 History Potassium Chloride [Klor-Con 10] 10 meq PO DAILY 08/05/14 03/21/23 History Albuterol Inhaler [Ventolin Hfa 2 puff INHALATION RT-QID PRN 03/25/15 03/21/23 History Inhaler] Aspirin EC [Ecotrin Low Dose] 81 mg PO DAILY 03/25/15 03/21/23 History Nitroglycerin Sl Tabs [Nitrostat] 0.4 mg SL Q5M PRN 03/25/15 03/21/23 History cycloSPORINE [Restasis] 1 drop BOTH EYES Q12H 03/25/15 03/21/23 History Cyclobenzaprine [Flexeril] 10 mg PO BID 01/30/18 03/21/23 History Docusate [Colace] 100 mg PO DAILY 01/30/18 03/21/23 History Melatonin 10 mg PO HS 01/30/18 03/21/23 History buPROPion HCL [Wellbutrin XL] 300 mg PO DAILY 01/30/18 03/21/23 History Ferrous Sulfate [Iron (65 MG 325 mg PO DAILY 06/07/18 03/21/23 History Elemental)] Ascorbic Acid [Vitamin C] 500 mg PO DAILY 12/06/19 03/21/23 History Biotin [Biotin Disolve] 5,000 mcg PO DAILY 12/06/19 03/21/23 History Calcium/Magnes/[place] 1 tab PO TID 12/06/19 03/21/23 History Evening [place] Oil 1,000 mg PO FR 12/06/19 03/21/23 History L.acidoph,Paracasei, B.lactis 1 cap PO DAILY 12/06/19 03/21/23 History [Probiotic] Levothyroxine Sodium [Synthroid] 100 mcg PO DAILY 12/06/19 03/21/23 History Vitamin E 400 unit PO BID 12/06/19 03/21/23 History buPROPion XL [Wellbutrin XL] 150 mg PO DAILY 12/06/19 03/21/23 History lamoTRIgine [LaMICtal] 200 mg PO HS 12/06/19 03/21/23 History Atorvastatin [Lipitor] 20 mg PO HS 04/24/22 03/21/23 History Cosamin Asu 1 tab PO DAILY 04/24/22 03/21/23 History Dulaglutide [Trulicity] 0.75 mg SQ FR 04/24/22 03/21/23 History Omega3/Dha/Epa/Fish Oil/Vit D3 1 cap PO TID 04/24/22 03/21/23 History [[place]-3 Plus Vitamin D3 Softgl] Propranolol HCl [Propranolol HCl 120 mg PO DAILY 04/24/22 03/21/23 History ER] Cholecalciferol [Vitamin D3 (25 25 mcg PO DAILY 03/21/23 03/21/23 History Mcg = 1000 Iu)] Empagliflozin [Jardiance] 25 mg PO DAILY 03/21/23 03/21/23 History Hyoscyamine Sulfate [Levsin] 0.125 mg PO TID PRN 03/21/23 03/21/23 History Isosorbide Mononitrate ER [Imdur] 30 mg PO DAILY 03/21/23 03/21/23 History Pantoprazole [Protonix] 40 mg PO BID 03/21/23 03/21/23 History Vitamin B Complex 1 cap PO DAILY 03/21/23 03/21/23 History metFORMIN HCL ER [Glucophage XR] 1,000 mg PO BID-W/MEALS 03/21/23 03/21/23 History Allergies Allergy/AdvReac Type Severity Reaction Status Date / Time desipramine HCl Allergy Rash/Hives Verified 03/21/23 13:29 [From Norpramin] gluten Allergy Abdominal Verified 03/21/23 13:29 Pain Milk Containing Products AdvReac Abdominal Verified 03/21/23 13:29 Pain YEAST AdvReac Unknown Abdominal Uncoded 12/17/22 10:04 Pain Physical Examination - Vital Signs Vital Signs: Vital Signs Temp Pulse Resp BP Pulse Ox 03/21/23 07:50 76 16 134/68 96 03/21/23 07:40 78 16 144/74 92 L 03/21/23 07:30 79 16 03/21/23 07:20 76 17 141/71 95 03/21/23 07:10 77 16 129/80 93 L 03/21/23 07:00 76 18 143/81 94 L 03/21/23 06:50 79 18 143/81 93 L 03/21/23 06:40 79 20 130/66 93 L 03/21/23 06:30 77 17 132/73 94 L 03/21/23 05:45 76 18 115/63 94 L 03/21/23 05:11 96.9 F L 72 16 139/82 99 Intake and Output 03/20/23 03/21/23 03/21/23 22:59 06:59 14:59 Other: Weight 92.986 kg Patient is a late middle aged female, in no acute distress. Patient is alert awake oriented to time place and person. Speech and language functions are normal. Patient can name and repeat very well. No aphasia or dysarthria. Attention, concentration and fund of knowledge is adequate. On cranial nerve examination, pupils are equal, round and reacting to light, visual mitchell are full on confrontation, with no neglect on double simultaneous stimulation. Extraocular muscles are intact with no nystagmus. Face is symmetric, tongue protrudes to the midline. Palatal elevation and sensation normal, hearing and shoulder shrug normal, facial sensation normal. On muscle strength testing, there is no pronator drift and the strength is normal in arms and legs distally and proximally. Deep tendon reflexes are symmetric 1+ in the upper limbs, 2 at the knees, 1 at ankles and plantars downgoing bilaterally. Sensory to touch is equal with no neglect on double simultaneous stimulation. Cerebellar function showed no ataxia for [id number] testing. No dysdiad ochokinesia. No ataxia for [id number] testing on either side. Tone and bulk of muscles normal. Gait deferred.. On general examination, there is no carotid bruit or murmur, S1-S2 audible. Chest is clear on consultation. Abdomen is soft nontender. No organomegaly, bowel sounds present. Peripheral pulses are present. No edema. Results - Laboratory Findings CBC and BMP: 03/21/23 05:35 03/21/23 05:35 Abnormal Lab Findings: Abnormal Labs 03/21/23 03/21/23 03/21/23 05:34 05:35 05:35 Glucose 250 H POC Glucose (mg/dL) 225 H Plasma Lactic Acid Herman Ur Specific [place] >1.050 H Urine Glucose (UA) 4+ H Urine Ketones 1+ H 03/21/23 03/21/23 05:35 09:21 Glucose POC Glucose (mg/dL) Plasma Lactic Acid Herman 3.7 H* 3.4 H* Ur Specific [place] Urine Glucose (UA) Urine Ketones Assessment and Plan Assessment: * Long-standing history of migraine headaches, has recently noticed worsening of migraines. * Chest pain * Diabetes * Hypertension * Sleep apnea Plan: * CT head, rule out any secondary causes of worsening of her migraines. * Fioricet as needed for migraines. * ESR, CRP. * Patient recommended to keep a log of migraines on a calendar, and follow up with her neurologist, to try the newer agents for migraine treatment and prophylaxis. She has not tried anything else besides ibuprofen and occipital nerve blocks. * Other medical management as per IM and cardiology. * If the above workup negative, and if headache resolves, patient will be cleared from neurology standpoint to follow-up with her neurologist. * Thank you for the consult.
--- NOTE | 2023-03-21 14:58 | CT ---
EXAMINATION TYPE: CT brain wo con DATE OF EXAM: 03/21/2023 HISTORY: headache CT DLP: 1153.7 mGycm. Automated Exposure Control for Dose Reduction was Utilized. TECHNIQUE: CT scan of the head is performed without contrast. COMPARISON: None. FINDINGS: There is no acute intracranial hemorrhage or midline shift identified. There is mild diff use ventricular and sulcal prominence consistent with diffuse age-related cerebral atrophy. Puri-whit e matter differentiation fairly well-preserved. The globes are intact and the visualized sinuses are clear. IMPRESSION: No acute intracranial hemorrhage or midline shift.
[2023-03-21 23:43] VITALS: TEMP 98.1
[2023-03-22] MEDS: HEPARIN SODIUM,PORCINE/PF 5,000 UNIT/0.5 ML SYRINGE SQ SCH ×2 (00:45→07:21)
[2023-03-22] MEDS: NITROGLYCERIN OINT 1 INCH/GM PACKET TOPICAL SCH ×2 (00:45→07:21)
[2023-03-22 05:49] LABS: Basophils % (A) 1 %; Eosinophils # (A) 0.2 k/uL (0-0.7); Eosinophils % (A) 3 %; HCT 41.3 % (34.0-46.0); HGB 13.8 gm/dL (11.4-16.0); Lymphocytes # (A) 1.9 k/uL (1.0-4.8); Lymphocytes % (A) 35 %; MCH 30.9 pg (25.0-35.0); MCHC 33.5 g/dL (31.0-37.0); MCV 92.3 fL (80.0-100.0); Mean Platelet Volume 8.4; Monocytes # (A) 0.3 k/uL (0-1.0); Monocytes % (A) 6 %; Neutrophils # (A) 2.9 k/uL (1.3-7.7); Neutrophils % (A) 53 %; Platelet Count 185 k/uL (150-450); RBC 4.47 m/uL (3.80-5.40); WBC 5.4 k/uL (3.8-10.6)
[2023-03-22 06:06] LABS: African American GFR (CKD) >90 (>60 ml/min/1.73 sqM); Anion Gap 10 mmol/L; Blood Urea Nitrogen 9 mg/dL (7-17); Calcium 8.9 mg/dL (8.4-10.2); Carbon Dioxide 23 mmol/L (22-30); Chloride 105 mmol/L (98-107); Glucose 195 mg/dL (74-99); Non-African American GFR(CKD) >90 (>60 ml/min/1.73 sqM); Potassium 3.6 mmol/L (3.5-5.1); Sodium 138 mmol/L (137-145)
[2023-03-22] MEDS: LORATADINE 10 MG TAB PO SCH (08:17)
[2023-03-22] MEDS ORDERED: FUROSEMIDE 20 MG TAB PO SCH (09:00)
[2023-03-22] MEDS ORDERED: ISOSORBIDE MONONITRATE ER 30 MG TAB.ER.24H PO SCH (09:00)
[2023-03-22] MEDS ORDERED: PANTOPRAZOLE 40 MG/10 ML VIAL IVP SCH (09:00)
[2023-03-22] MEDS ORDERED: ASPIRIN 81 MG PO SCH (09:00)
[2023-03-22] MEDS ORDERED: PROPRANOLOL LA 60 MG CAP.SA.24H PO SCH (09:15)
[2023-03-22] MEDS ORDERED: DAPAGLIFLOZIN PROPANEDIOL 10 MG TABLET PO SCH (09:15)
[2023-03-22] MEDS ORDERED: PEG 3350 (236 GM/BTL) + LYTES 4,000 ML BOTTLE PO ONE (12:00)
--- NOTE | 2023-03-22 12:07 | P.CRDCN ---
History of Present Illness History of present illness: HISTORY OF PRESENT ILLNESS: This is a 62-year-old female with a past medical history significant for hypertension, hyperlipidemia, diabetes, migraines, hypothyroidism, and morbid obesity. Patient follows in the office with Dr. Skinner. We have been asked to see the patient in consultation for chest pain. Patient examined at the bedside in the emergency room. The patient states that she was having multiple symptoms which prompted her to come to the emergency room. She states that she was having chest pain which is unchanged from her previous episodes of chest pain. It is noted that the patient underwent a heart catheterization in November of this year revealing normal coronary arteries. The patient also reports that she was having a headache and abdominal pain. She states that she has not been taking her medications as prescribed although time due to her emotional state which is unable to elaborate on. * EKG reveals sinus mechanism with no signs of acute ischemia. * Chest xray central vascular congestion. Correlate for CHF exacerbation versus product of poor inspiration. * Laboratory data: WBC 5.4. Hemoglobin 13.8. Platelet count 185. Sodium 138. Potassium 3.6. BUN 9. Creatinine 0.47. Lactic acid 2.4. Repeat 1.9. Troponin negative 3. * Current home cardiac medications include propanolol 120 mg daily, Imdur 30 mg daily, Lasix 20 mg daily, Lipitor 20 mg at night, aspirin 81 mg daily * Most recent echocardiogram obtained in the office in September 2022 revealed normal ejection fraction, mild TR, mild MR * Cardiac catheterization history: 12/21/2022 revealing normal coronary arteries with a right dominant system. REVIEW OF SYSTEMS: At the time of my exam: CONSTITUTIONAL: Denies fever or chills. HEENT: Denies blurred vision, vision changes, or eye pain. Denies hemoptysis CARDIOVASCULAR: Denies chest pain. Denies orthopnea. Denies PND. Denies palpitations RESPIRATORY: Denies shortness of breath. GASTROINTESTINAL: Denies abdominal pain. Denies nausea or vomiting. HEMATOLOGIC: Denies bleeding disorders. GENITOURINARY: Denies any blood in urine. SKIN: Denies pruitis. Denies rash. PHYSICAL EXAM: VITAL SIGNS: Reviewed. GENERAL: Well-developed in no acute distress. HEENT: Head is normocephalic. Pupils are equal, round. Sclerae anicteric. Mucous membranes of the mouth are moist. Neck supple. No JVD or thyromegaly LUNGS: Respirations even and unlabored. Lungs essentially clear to auscultation bilaterally. HEART: Regular rate and rhythm. S1 and S2 heard. ABDOMEN: Soft. Nondistended. Nontender. EXTREMITIES: Normal range of motion. No clubbing or cyanosis. Peripheral pulses intact. No lower extremity edema NEUROLOGIC: Awake and alert. Oriented x 3. ASSESSMENT: Headache with history of migraines Acute on chronic abdominal pain Chest pain, troponins negative 3, ACS ruled out Normal coronary arteries, per cardiac catheterization, November 2022 Hypertension Hyperlipidemia Diabetes Hypothyroidism Morbid obesity Obstructive sleep apnea PLAN: An acute coronary event has been ruled out Resume home cardiac medications Patient may be discharged home today from a cardiac standpoint and follow up on an outpatient basis We will sign off. Please reconsult if needed. Nurse practitioner note has been reviewed by physician. Signing provider agrees with the documented findings, assessment, and plan of care. Past Medical History Past Medical History: Asthma, Chest Pain / Angina, Diabetes Mellitus, Eye Disorder, Fibromyalgia, GERD/Reflux, Hearing Disorder / Deafness, Hyperlipidemia, Hypertension, Skin Disorder, Sleep Apnea/CPAP/BIPAP, Thyroid Disorder Additional Past Medical History / Comment(s): Central auditory processing disorder/[place], dysphagia, gastritis, duodenitis, gastroparesis, IBS, NIDDM type II, neuropathy bilateral legs/feet, fatty liver, [place] with Cpap, bilateral glaucoma, eczema, insomnia, hypothyroid, occasional lower leg edema, migraines, chronic cervical/across shoulder/low back pain, anemia, sinus issues. History of Any Multi-Drug Resistant Organisms: None Reported Past Surgical History: Adenoidectomy, Heart Catheterization, Hysterectomy, Orthopedic Surgery, Tonsillectomy Additional Past Surgical History / Comment(s): L hand bone/tendon surgery, R hand surgery d/t dog bite, bilateral carpal tunnel releases, EGD, colonoscopy, cardiac cath 2-3 yrs ago-states it was normal cataract leonidas surgery, rt index finger surgery, Past Anesthesia/Blood Transfusion Reactions: Postoperative Nausea & Vomiting (PONV) Past Psychological History: Anxiety, Depression Smoking Status: Never smoker Past Alcohol Use History: None Reported - Past Family History Mother Family Medical History: Cancer, Deep Vein Thrombosis (DVT) Additional Family Medical History / Comment(s): Mother of breast cancer. Father Family Medical History: Cancer, Deep Vein Thrombosis (DVT) Additional Family Medical History / Comment(s): Father of prostate cancer. Medications and Allergies Home Medications Medication Instructions Recorded Confirmed Type Beclomethasone Dipropionate [Qvar 1 puff INHALATION RT-BID 08/05/14 03/21/23 History 80 mcg/puff] DULoxetine HCL [Cymbalta] 120 mg PO DAILY 08/05/14 03/21/23 History Furosemide [Lasix] 20 mg PO DAILY 08/05/14 03/21/23 History Montelukast [Singulair] 10 mg PO HS 08/05/14 03/21/23 History Omeprazole [PriLOSEC] 20 mg PO BID-W/MEALS 08/05/14 03/21/23 History Potassium Chloride [Klor-Con 10] 10 meq PO DAILY 08/05/14 03/21/23 History Albuterol Inhaler [Ventolin Hfa 2 puff INHALATION RT-QID PRN 03/25/15 03/21/23 History Inhaler] Aspirin EC [Ecotrin Low Dose] 81 mg PO DAILY 03/25/15 03/21/23 History Nitroglycerin Sl Tabs [Nitrostat] 0.4 mg SL Q5M PRN 03/25/15 03/21/23 History cycloSPORINE [Restasis] 1 drop BOTH EYES Q12H 03/25/15 03/21/23 History Cyclobenzaprine [Flexeril] 10 mg PO BID 01/30/18 03/21/23 History Docusate [Colace] 100 mg PO DAILY 01/30/18 03/21/23 History Melatonin 10 mg PO HS 01/30/18 03/21/23 History buPROPion HCL [Wellbutrin XL] 300 mg PO DAILY 01/30/18 03/21/23 History Ferrous Sulfate [Iron (65 MG 325 mg PO DAILY 06/07/18 03/21/23 History Elemental)] Ascorbic Acid [Vitamin C] 500 mg PO DAILY 12/06/19 03/21/23 History Biotin [Biotin Disolve] 5,000 mcg PO DAILY 12/06/19 03/21/23 History Calcium/Magnes/[place] 1 tab PO TID 12/06/19 03/21/23 History Evening [place] Oil 1,000 mg PO FR 12/06/19 03/21/23 History L.acidoph,Paracasei, B.lactis 1 cap PO DAILY 12/06/19 03/21/23 History [Probiotic] Levothyroxine Sodium [Synthroid] 100 mcg PO DAILY 12/06/19 03/21/23 History Vitamin E 400 unit PO BID 12/06/19 03/21/23 History buPROPion XL [Wellbutrin XL] 150 mg PO DAILY 12/06/19 03/21/23 History lamoTRIgine [LaMICtal] 200 mg PO HS 12/06/19 03/21/23 History Atorvastatin [Lipitor] 20 mg PO HS 04/24/22 03/21/23 History Cosamin Asu 1 tab PO DAILY 04/24/22 03/21/23 History Dulaglutide [Trulicity] 0.75 mg SQ FR 04/24/22 03/21/23 History Omega3/Dha/Epa/Fish Oil/Vit D3 1 cap PO TID 04/24/22 03/21/23 History [[place]-3 Plus Vitamin D3 Softgl] Propranolol HCl [Propranolol HCl 120 mg PO DAILY 04/24/22 03/21/23 History ER] Cholecalciferol [Vitamin D3 (25 25 mcg PO DAILY 03/21/23 03/21/23 History Mcg = 1000 Iu)] Empagliflozin [Jardiance] 25 mg PO DAILY 03/21/23 03/21/23 History Hyoscyamine Sulfate [Levsin] 0.125 mg PO TID PRN 03/21/23 03/21/23 History Isosorbide Mononitrate ER [Imdur] 30 mg PO DAILY 03/21/23 03/21/23 History Pantoprazole [Protonix] 40 mg PO BID 03/21/23 03/21/23 History Vitamin B Complex 1 cap PO DAILY 03/21/23 03/21/23 History metFORMIN HCL ER [Glucophage XR] 1,000 mg PO BID-W/MEALS 03/21/23 03/21/23 History Allergies Allergy/AdvReac Type Severity Reaction Status Date / Time desipramine HCl Allergy Rash/Hives Verified 03/21/23 13:29 [From Norpramin] gluten Allergy Abdominal Verified 03/21/23 13:29 Pain Milk Containing Products AdvReac Abdominal Verified 03/21/23 13:29 Pain YEAST AdvReac Unknown Abdominal Uncoded 12/17/22 10:04 Pain Physical Exam Vitals: Vital Signs Temp Pulse Pulse Resp BP BP Pulse Ox 03/22/23 09:19 76 18 138/57 95 03/22/23 06:05 76 16 135/74 93 L 03/22/23 04:00 80 16 113/61 94 L 03/22/23 02:00 84 16 116/64 96 03/22/23 00:30 78 16 145/81 03/21/23 20:00 98.1 F 75 18 116/64 94 L 03/21/23 16:39 98.2 F 80 19 138/87 97 03/21/23 13:30 97.9 F 78 20 131/74 97 03/21/23 12:42 98.1 F 72 16 128/64 95 Results 03/22/23 05:38 03/22/23 05:38 Cardiac Enzymes 03/21/23 Range/Units 12:06 Troponin I <0.012 (0.000-0.034) ng/mL CBC 03/22/23 Range/Units 05:38 WBC 5.4 (3.8-10.6) k/uL RBC 4.47 (3.80-5.40) m/uL Hgb 13.8 (11.4-16.0) gm/dL Hct 41.3 (34.0-46.0) % Plt Count 185 (150-450) k/uL Comprehensive Metabolic Panel 03/22/23 Range/Units 05:38 Sodium 138 (137-145) mmol/L Potassium 3.6 (3.5-5.1) mmol/L Chloride 105 (98-107) mmol/L Carbon Dioxide 23 (22-30) mmol/L BUN 9 (7-17) mg/dL Creatinine 0.47 L (0.52-1.04) mg/dL Glucose 195 H (74-99) mg/dL Calcium 8.9 (8.4-10.2) mg/dL Current Medications Generic Name Dose Route Start Last Admin Trade Name Freq PRN Reason Stop Dose Admin Acetaminophen/Butalbital/Caffeine 1 each 03/21/23 14:11 Butalb/Apap/Caff 50-325-40mg Tab PO Q4HR PRN Headache Hydrocodone Bitart/Acetaminophen 1 each 03/21/23 10:18 03/22/23 01:43 Hydrocodone/Apap 5-325mg 1 Each Tab PO 1 each Q6HR PRN Administration Pain Aspirin 81 mg 03/22/23 09:00 03/22/23 09:17 Aspirin 81 Mg PO 81 mg DAILY [facility] Administration Atorvastatin Calcium 20 mg 03/22/23 21:00 Atorvastatin 20 Mg Tab PO HS [facility] Dapagliflozin 10 mg 03/22/23 09:15 03/22/23 09:17 Dapagliflozin Propanediol 10 Mg Tablet PO 10 mg DAILY [facility] Administration Furosemide 20 mg 03/22/23 09:00 03/22/23 09:17 Furosemide 20 Mg Tab PO 20 mg DAILY [facility] Administration Heparin Sodium (Porcine) 5,000 unit 03/21/23 08:00 03/22/23 07:21 Heparin Sodium,Porcine/Pf 5,000 Unit/0.5 Ml Syringe SQ Not Given Q8HR [facility] Isosorbide Mononitrate 30 mg 03/22/23 09:00 03/22/23 09:17 Isosorbide Mononitrate Er 30 Mg Tab.Er.24h PO 30 mg DAILY [facility] Administration Loratadine 10 mg 03/21/23 10:30 03/22/23 08:17 Loratadine 10 Mg Tab PO 03/26/23 10:31 10 mg DAILY [facility] Administration Naloxone HCl 0.2 mg 03/21/23 07:27 Naloxone 0.4 Mg/Ml 1 Ml Vial IV Q2M PRN Opioid Reversal Nitroglycerin 0.4 mg 03/21/23 05:32 03/21/23 05:47 Nitroglycerin Sl Tabs 0.4 Mg Tab SUBLINGUAL 0.4 mg Q10M PRN Administration Chest Pain Ondansetron HCl 4 mg 03/21/23 07:27 Ondansetron 4 Mg/2 Ml Vial IVP Q8HR PRN Nausea And Vomiting Pantoprazole Sodium 40 mg 03/22/23 09:00 03/22/23 08:17 Pantoprazole 40 Mg/10 Ml Vial IVP 40 mg DAILY [facility] Administration Propranolol HCl 120 mg 03/22/23 09:15 03/22/23 09:17 Propranolol [place] 60 Mg Cap.Sa.24h PO 120 mg DAILY [facility] Administration 03/22/23 05:38 03/22/23 05:38
--- NOTE | 2023-03-22 12:12 | P.GSCN ---
History of Present Illness Consult date: 03/22/23 History of present illness: CHIEF COMPLAINT: Abdominal pain and chest pain HISTORY OF PRESENT ILLNESS: This is a 62-year-old female presented to Hospital complaints of abdominal and chest pain for the last 5 days. She reports that the pain is located in the epigastric and above the umbilicus. She does report that the pain radiates up into the esophagus. She does report having heartburn and indigestion. She has been having nausea. She had vomiting 2 yesterday. She has been having loose stools. She was having up to maybe 4 per hour. She has had no bowel movements yesterday or today. She does report a few small spots of blood noted in the stools. She has been taking Motrin 600 mg 4 times a day for the past week for a headache. She does report the pain is worse after eating. She had a computed tomography scan of the chest and abdomen with IV contrast that was negative. She did have evidence of dehydration with elevated lactic acid level. Hemoglobin is stable. She has been seen by cardiology and neurology. Patient does report history of angina that this does feel similar to her prior anginal episodes. She reports having a hard 6 weeks ago which was negative. She is a diabetic. Has a known history of gastroparesis. Last EGD was in 2009 which showed gastroparesis, gastritis and duodenitis. Patient reports a last colonoscopy was about 6 years ago which was negative. PAST MEDICAL HISTORY: Asthma, Chest Pain / Angina, Diabetes Mellitus, Eye Disorder, Fibromyalgia, GERD/Reflux, Hearing Disorder / Deafness, Hyperlipidemia, Hypertension, Skin Disorder, Sleep Apnea/CPAP/BIPAP, Thyroid Disorder,Central auditory processing disorder/[place], dysphagia, gastritis, duodenitis, gastroparesis, IBS, NIDDM type II, neuropathy bilateral legs/feet, fatty liver, [place] with Cpap, bilateral glaucoma, eczema, insomnia, hypothyroid, occasional lower leg edema, migraines, chronic cervical/across shoulder/low back pain, anemia, sinus issues. PAST SURGICAL HISTORY: Adenoidectomy, Heart Catheterization, Hysterectomy, Orthopedic Surgery, Tonsillectom MEDICATIONS: See below ALLERGIES: See below SOCIAL HISTORY: No illicit drug use. REVIEW OF SYSTEMS: CONSTITUTIONAL: Denies fever or chills. HEENT: Denies blurred vision, vision changes, or eye pain. Denies hemoptysis CARDIOVASCULAR: Denies chest pain or pressure. RESPIRATORY: No shortness of breath. GASTROINTESTINAL: See HPI for pertinent findings HEMATOLOGIC: Denies bleeding disorders. GENITOURINARY: Denies any blood in urine or increased urinary frequency. SKIN: Denies pruitis. Denies rash. PHYSICAL EXAM: VITAL SIGNS: Reviewed GENERAL: Well-developed in no acute distress. HEENT: No sclera icterus. Extraocular movements grossly intact. Moist buccal mucosa. Head is atraumatic, normocephalic. No nasal drainage. ABDOMEN: Soft. Nondistended. Tender to palpation epigastric area and above the umbilicus NEUROLOGIC: Alert and oriented. Cranial nerves II through XII grossly intact. LABORATORY DATA: WBC is 5.4 hgb 13.8 platelets 185 Sodium 138 potassium 3.6 creatinine 0.47 Glucose 195 Lactic acid 2.9 down to 1.9 LFTs normal lipase 295 troponins negative 3 sets IMAGING: Computed tomography scan chest abdomen no thoracic or abdominal aortic aneurysm or dissection. No acute findings are evident. ASSESSMENT: 1. Epigastric and umbilicus abdominal pain with nausea vomiting and diarrhea. Patient did report minimal blood noted in stools 2. Chest pain evaluated by cardiology 3. Daily NSAID use 4. History of gastroparesis, gastritis and duodenitis 5. History of diabetes PLAN: -Patient scheduled for EGD and colonoscopy tomorrow with Dr. Moses -Start clear liquid diet -Start GoLYTELY bowel prep -Nothing by mouth after midnight -Continue IV Protonix -Avoid NSAIDs Thank you for this consultation Physician [place] Cashier note has been reviewed by physician. Signing provider agrees with the documented findings, assessment, and plan of care. Past Medical History Past Medical History: Asthma, Chest Pain / Angina, Diabetes Mellitus, Eye Disorder, Fibromyalgia, GERD/Reflux, Hearing Disorder / Deafness, Hyperlipidemia, Hypertension, Skin Disorder, Sleep Apnea/CPAP/BIPAP, Thyroid Disorder Additional Past Medical History / Comment(s): Central auditory processing disorder/IONE, dysphagia, gastritis, duodenitis, gastroparesis, IBS, NIDDM type II, neuropathy bilateral legs/feet, fatty liver, [place] with Cpap, bilateral glaucoma, eczema, insomnia, hypothyroid, occasional lower leg edema, migraines, chronic cervical/across shoulder/low back pain, anemia, sinus issues. History of Any Multi-Drug Resistant Organisms: None Reported Past Surgical History: Adenoidectomy, Heart Catheterization, Hysterectomy, Orthopedic Surgery, Tonsillectomy Additional Past Surgical History / Comment(s): L hand bone/tendon surgery, R hand surgery d/t dog bite, bilateral carpal tunnel releases, EGD, colonoscopy, cardiac cath 2-3 yrs ago-states it was normal cataract leonidas surgery, rt index finger surgery, Past Anesthesia/Blood Transfusion Reactions: Postoperative Nausea & Vomiting (PONV) Past Psychological History: Anxiety, Depression Smoking Status: Never smoker Past Alcohol Use History: None Reported - Past Family History Mother Family Medical History: Cancer, Deep Vein Thrombosis (DVT) Additional Family Medical History / Comment(s): Mother of breast cancer. Father Family Medical History: Cancer, Deep Vein Thrombosis (DVT) Additional Family Medical History / Comment(s): Father of prostate cancer. Medications and Allergies Home Medications Medication Instructions Recorded Confirmed Type Beclomethasone Dipropionate [Qvar 1 puff INHALATION RT-BID 08/05/14 03/21/23 History 80 mcg/puff] DULoxetine HCL [Cymbalta] 120 mg PO DAILY 08/05/14 03/21/23 History Furosemide [Lasix] 20 mg PO DAILY 08/05/14 03/21/23 History Montelukast [Singulair] 10 mg PO HS 08/05/14 03/21/23 History Omeprazole [PriLOSEC] 20 mg PO BID-W/MEALS 08/05/14 03/21/23 History Potassium Chloride [Klor-Con 10] 10 meq PO DAILY 08/05/14 03/21/23 History Albuterol Inhaler [Ventolin Hfa 2 puff INHALATION RT-QID PRN 03/25/15 03/21/23 History Inhaler] Aspirin EC [Ecotrin Low Dose] 81 mg PO DAILY 03/25/15 03/21/23 History Nitroglycerin Sl Tabs [Nitrostat] 0.4 mg SL Q5M PRN 03/25/15 03/21/23 History cycloSPORINE [Restasis] 1 drop BOTH EYES Q12H 03/25/15 03/21/23 History Cyclobenzaprine [Flexeril] 10 mg PO BID 01/30/18 03/21/23 History Docusate [Colace] 100 mg PO DAILY 01/30/18 03/21/23 History Melatonin 10 mg PO HS 01/30/18 03/21/23 History buPROPion HCL [Wellbutrin XL] 300 mg PO DAILY 01/30/18 03/21/23 History Ferrous Sulfate [Iron (65 MG 325 mg PO DAILY 06/07/18 03/21/23 History Elemental)] Ascorbic Acid [Vitamin C] 500 mg PO DAILY 12/06/19 03/21/23 History Biotin [Biotin Disolve] 5,000 mcg PO DAILY 12/06/19 03/21/23 History Calcium/Magnes/[place] 1 tab PO TID 12/06/19 03/21/23 History Evening [place] Oil 1,000 mg PO FR 12/06/19 03/21/23 History L.acidoph,Paracasei, B.lactis 1 cap PO DAILY 12/06/19 03/21/23 History [Probiotic] Levothyroxine Sodium [Synthroid] 100 mcg PO DAILY 12/06/19 03/21/23 History Vitamin E 400 unit PO BID 12/06/19 03/21/23 History buPROPion XL [Wellbutrin XL] 150 mg PO DAILY 12/06/19 03/21/23 History lamoTRIgine [LaMICtal] 200 mg PO HS 12/06/19 03/21/23 History Atorvastatin [Lipitor] 20 mg PO HS 04/24/22 03/21/23 History Cosamin Asu 1 tab PO DAILY 04/24/22 03/21/23 History Dulaglutide [Trulicity] 0.75 mg SQ FR 04/24/22 03/21/23 History Omega3/Dha/Epa/Fish Oil/Vit D3 1 cap PO TID 04/24/22 03/21/23 History [[place]av[place]-3 Plus Vitamin D3 Softgl] Propranolol HCl [Propranolol HCl 120 mg PO DAILY 04/24/22 03/21/23 History ER] Cholecalciferol [Vitamin D3 (25 25 mcg PO DAILY 03/21/23 03/21/23 History Mcg = 1000 Iu)] Empagliflozin [Jardiance] 25 mg PO DAILY 03/21/23 03/21/23 History Hyoscyamine Sulfate [Levsin] 0.125 mg PO TID PRN 03/21/23 03/21/23 History Isosorbide Mononitrate ER [Imdur] 30 mg PO DAILY 03/21/23 03/21/23 History Pantoprazole [Protonix] 40 mg PO BID 03/21/23 03/21/23 History Vitamin B Complex 1 cap PO DAILY 03/21/23 03/21/23 History metFORMIN HCL ER [Glucophage XR] 1,000 mg PO BID-W/MEALS 03/21/23 03/21/23 History Allergies Allergy/AdvReac Type Severity Reaction Status Date / Time desipramine HCl Allergy Rash/Hives Verified 03/21/23 13:29 [From Norpramin] gluten Allergy Abdominal Verified 03/21/23 13:29 Pain Milk Containing Products AdvReac Abdominal Verified 03/21/23 13:29 Pain YEAST AdvReac Unknown Abdominal Uncoded 12/17/22 10:04 Pain Surgical - Exam Vital Signs Temp Pulse Resp BP Pulse Ox 96.9 F L 72 16 139/82 99 03/21/23 05:11 03/21/23 05:11 03/21/23 05:11 03/21/23 05:11 03/21/23 05:11 Results - Labs 03/22/23 05:38 03/22/23 05:38 Abnormal Lab Results - Last 24 Hours (Table) 03/21/23 03/21/23 03/21/23 Range/Units 05:35 12:42 15:31 Creatinine (0.52-1.04) mg/dL Glucose (74-99) mg/dL Plasma Lactic Acid [place] 3.5 H* (0.7-2.0) mmol/L C-Reactive Protein 1.2 H (<1.0) mg/dL Ur Specific [place] >1.050 H (1.001-1.035) Urine Glucose (UA) 4+ H (Negative) Urine Ketones 1+ H (Negative) 03/21/23 03/21/23 03/22/23 Range/Units 19:34 22:52 02:32 Creatinine (0.52-1.04) mg/dL Glucose (74-99) mg/dL Plasma Lactic Acid [place] 4.4 H* 2.9 H* 2.4 H* (0.7-2.0) mmol/L C-Reactive Protein (<1.0) mg/dL Ur Specific [place] (1.001-1.035) Urine Glucose (UA) (Negative) Urine Ketones (Negative) 03/22/23 03/22/23 Range/Units 05:38 05:38 Creatinine 0.47 L (0.52-1.04) mg/dL Glucose 195 H (74-99) mg/dL Plasma Lactic Acid [place] 2.1 H* (0.7-2.0) mmol/L C-Reactive Protein (<1.0) mg/dL Ur Specific [place] (1.001-1.035) Urine Glucose (UA) (Negative) Urine Ketones (Negative) Diabetes panel 03/22/23 Range/Units 05:38 Sodium 138 (137-145) mmol/L Potassium 3.6 (3.5-5.1) mmol/L Chloride 105 (98-107) mmol/L Carbon Dioxide 23 (22-30) mmol/L BUN 9 (7-17) mg/dL Creatinine 0.47 L (0.52-1.04) mg/dL Glucose 195 H (74-99) mg/dL Calcium 8.9 (8.4-10.2) mg/dL Calcium panel 03/22/23 Range/Units 05:38 Calcium 8.9 (8.4-10.2) mg/dL Pituitary panel 03/22/23 Range/Units 05:38 Sodium 138 (137-145) mmol/L Potassium 3.6 (3.5-5.1) mmol/L Chloride 105 (98-107) mmol/L Carbon Dioxide 23 (22-30) mmol/L BUN 9 (7-17) mg/dL Creatinine 0.47 L (0.52-1.04) mg/dL Glucose 195 H (74-99) mg/dL Calcium 8.9 (8.4-10.2) mg/dL Adrenal panel 03/22/23 Range/Units 05:38 Sodium 138 (137-145) mmol/L Potassium 3.6 (3.5-5.1) mmol/L Chloride 105 (98-107) mmol/L Carbon Dioxide 23 (22-30) mmol/L BUN 9 (7-17) mg/dL Creatinine 0.47 L (0.52-1.04) mg/dL Glucose 195 H (74-99) mg/dL Calcium 8.9 (8.4-10.2) mg/dL
[2023-03-22 13:30] VITALS: BP 122/91; PULSE 70; RESP 16
[2023-03-22] MEDS ORDERED: ATORVASTATIN 20 MG TAB PO SCH (21:00)
--- NOTE | 2023-03-22 22:00 | P.DS ---
Providers Date of admission: 03/21/23 07:27 Expected date of discharge: 03/22/23 Attending physician: Shun Shaw Consults: 03/21/23 10:18 Consult Physician Routine Consulting Provider: Lacho Moses Consult Reason/Comments: epigastic pain and tenderness Do you want consulting provider notified?: Yes 03/21/23 10:19 Consult Physician Routine Consulting Provider: Macey Davis Consult Reason/Comments: worsening headache Do you want consulting provider notified?: Yes Primary care physician: Shun Shaw - Discharge Diagnosis(es) (1) Abdominal pain of unknown etiology Status: Acute (2) Chest pain Status: Acute (3) Dehydration Status: Acute (4) Diarrhea Status: Acute (5) Lactic acidosis Status: Acute (6) Unstable angina pectoris Status: Acute Hospital Course: Patient is 62-year-old white female submitted for atypical unstable angina dehydration lactic acidosis and abdominal pain she was worked up by cardiology is felt to be nonischemic no evidence of myocardial infarction. She was stable within 24 hours after rehydration she was cleared by cardiology to be released. General surgery wanted to do a colonoscopy on patient but she was deemed to be stable and this could be set up as outpatient she was tolerating regular diet she was in no acute distress at the time of discharge Patient Condition at Discharge: Stable Plan - Discharge Summary New Discharge Prescriptions: No Action RX: Beclomethasone Dipropionate [Qvar 80 mcg/puff] 1 puff INHALATION RT-BID RX: DULoxetine HCL [Cymbalta] 120 mg PO DAILY RX: Furosemide [Lasix] 20 mg PO DAILY RX: Omeprazole [PriLOSEC] 20 mg PO BID-W/MEALS RX: Montelukast [Singulair] 10 mg PO HS RX: Potassium Chloride [Klor-Con 10] 10 meq PO DAILY RX: Albuterol Inhaler [Ventolin Hfa Inhaler] 2 puff INHALATION RT-QID PRN PRN Reason: Shortness Of Breath RX: Nitroglycerin Sl Tabs [Nitrostat] 0.4 mg SL Q5M PRN PRN Reason: Chest Pain RX: Aspirin EC [Ecotrin Low Dose] 81 mg PO DAILY RX: cycloSPORINE [Restasis] 1 drop BOTH EYES Q12H RX: Docusate [Colace] 100 mg PO DAILY RX: buPROPion HCL [Wellbutrin XL] 300 mg PO DAILY RX: Cyclobenzaprine [Flexeril] 10 mg PO BID RX: Melatonin 10 mg PO HS RX: Ferrous Sulfate [Iron (65 MG Elemental)] 325 mg PO DAILY RX: L.acidoph,Paracasei, B.lactis [Probiotic] 1 cap PO DAILY RX: Ascorbic Acid [Vitamin C] 500 mg PO DAILY RX: Evening [place] Oil 1,000 mg PO FR Calcium/Magnes/[place] 1 tab PO TID RX: Biotin [Biotin Disolve] 5,000 mcg PO DAILY RX: Levothyroxine Sodium [Synthroid] 100 mcg PO DAILY RX: lamoTRIgine [LaMICtal] 200 mg PO HS RX: buPROPion XL [Wellbutrin XL] 150 mg PO DAILY RX: Vitamin E 400 unit PO BID RX: Omega3/Dha/Epa/Fish Oil/Vit D3 [[place]-3 Plus Vitamin D3 Softgl] 1 cap PO TID Cosamin Asu 1 tab PO DAILY Empagliflozin [Jardiance] 25 mg PO DAILY Cholecalciferol [Vitamin D3 (25 Mcg = 1000 Iu)] 25 mcg PO DAILY Hyoscyamine Sulfate [Levsin] 0.125 mg PO TID PRN PRN Reason: cramps RX: Atorvastatin [Lipitor] 20 mg PO HS RX: Dulaglutide [Trulicity] 0.75 mg SQ FR RX: Propranolol HCl [Propranolol HCl ER] 120 mg PO DAILY metFORMIN HCL ER [Glucophage XR] 1,000 mg PO BID-W/MEALS Isosorbide Mononitrate ER [Imdur] 30 mg PO DAILY Pantoprazole [Protonix] 40 mg PO BID RX: Vitamin B Complex 1 cap PO DAILY Discharge Medication List RX: Beclomethasone Dipropionate [Qvar 80 mcg/puff] 1 puff INHALATION RT-BID 08/05/14 [History] RX: DULoxetine HCL [Cymbalta] 120 mg PO DAILY 08/05/14 [History] RX: Furosemide [Lasix] 20 mg PO DAILY 08/05/14 [History] RX: Montelukast [Singulair] 10 mg PO HS 08/05/14 [History] RX: Omeprazole [PriLOSEC] 20 mg PO BID-W/MEALS 08/05/14 [History] RX: Potassium Chloride [Klor-Con 10] 10 meq PO DAILY 08/05/14 [History] RX: Albuterol Inhaler [Ventolin Hfa Inhaler] 2 puff INHALATION RT-QID PRN 03/25/15 [History] RX: Aspirin EC [Ecotrin Low Dose] 81 mg PO DAILY 03/25/15 [History] RX: Nitroglycerin Sl Tabs [Nitrostat] 0.4 mg SL Q5M PRN 03/25/15 [History] RX: cycloSPORINE [Restasis] 1 drop BOTH EYES Q12H 03/25/15 [History] RX: Cyclobenzaprine [Flexeril] 10 mg PO BID 01/30/18 [History] RX: Docusate [Colace] 100 mg PO DAILY 01/30/18 [History] RX: Melatonin 10 mg PO HS 01/30/18 [History] RX: buPROPion HCL [Wellbutrin XL] 300 mg PO DAILY 01/30/18 [History] RX: Ferrous Sulfate [Iron (65 MG Elemental)] 325 mg PO DAILY 06/07/18 [History] Calcium/Magnes/[place] 1 tab PO TID 12/06/19 [History] RX: Ascorbic Acid [Vitamin C] 500 mg PO DAILY 12/06/19 [History] RX: Biotin [Biotin Disolve] 5,000 mcg PO DAILY 12/06/19 [History] RX: Evening [place] Oil 1,000 mg PO FR 12/06/19 [History] RX: L.acidoph,Paracasei, B.lactis [Probiotic] 1 cap PO DAILY 12/06/19 [History] RX: Levothyroxine Sodium [Synthroid] 100 mcg PO DAILY 12/06/19 [History] RX: Vitamin E 400 unit PO BID 12/06/19 [History] RX: buPROPion XL [Wellbutrin XL] 150 mg PO DAILY 12/06/19 [History] RX: lamoTRIgine [LaMICtal] 200 mg PO HS 12/06/19 [History] Cosamin Asu 1 tab PO DAILY 04/24/22 [History] RX: Atorvastatin [Lipitor] 20 mg PO HS 04/24/22 [History] RX: Dulaglutide [Trulicity] 0.75 mg SQ FR 04/24/22 [History] RX: Omega3/Dha/Epa/Fish Oil/Vit D3 [[place]-3 Plus Vitamin D3 Softgl] 1 cap PO TID 04/24/22 [History] RX: Propranolol HCl [Propranolol HCl ER] 120 mg PO DAILY 04/24/22 [History] Cholecalciferol [Vitamin D3 (25 Mcg = 1000 Iu)] 25 mcg PO DAILY 03/21/23 [History] Empagliflozin [Jardiance] 25 mg PO DAILY 03/21/23 [History] Hyoscyamine Sulfate [Levsin] 0.125 mg PO TID PRN 03/21/23 [History] Isosorbide Mononitrate ER [Imdur] 30 mg PO DAILY 03/21/23 [History] Pantoprazole [Protonix] 40 mg PO BID 03/21/23 [History] RX: Vitamin B Complex 1 cap PO DAILY 03/21/23 [History] metFORMIN HCL ER [Glucophage XR] 1,000 mg PO BID-W/MEALS 03/21/23 [History] Follow up Appointment(s)/Referral(s): Shun Shaw DO [Primary Care Provider] - 1 Week Lacho Moses MD [STAFF PHYSICIAN] - 3 Days Discharge Disposition: HOME SELF-CARE
== END 2023-03-22 13:47 | disposition home or self-care (01) | DRG 392 ==
LOC: EC 05:02 → 3SCARD 07:27
PROVIDERS: ADMIT Family Medicine; ATTEND Family Medicine
DX: K58.0 Irritable bowel syndrome with diarrhea (principal); E87.20 Acidosis, unspecified; I20.0 Unstable angina; K62.5 Hemorrhage of anus and rectum; R16.0 Hepatomegaly, not elsewhere classified; K76.0 Fatty (change of) liver, not elsewhere classified; E11.43 Type 2 diabetes mellitus with diabetic autonomic (poly)neuropathy; E11.42 Type 2 diabetes mellitus with diabetic polyneuropathy; D64.9 Anemia, unspecified; E03.9 Hypothyroidism, unspecified; E11.65 Type 2 diabetes mellitus with hyperglycemia; E66.01 Morbid (severe) obesity due to excess calories; I10 Essential (primary) hypertension; F32.A Depression, unspecified; E86.0 Dehydration; E78.5 Hyperlipidemia, unspecified; M79.7 Fibromyalgia; G47.33 Obstructive sleep apnea (adult) (pediatric); H93.25 Central auditory processing disorder; F41.9 Anxiety disorder, unspecified; R30.0 Dysuria; M54.50 Low back pain, unspecified; G89.29 Other chronic pain; J32.1 Chronic frontal sinusitis; K31.84 Gastroparesis; T39.395A Adverse effect of other nonsteroidal anti-inflammatory drugs [NSAID], initial encounter; M19.90 Unspecified osteoarthritis, unspecified site; K21.9 Gastro-esophageal reflux disease without esophagitis; H40.9 Unspecified glaucoma; G43.909 Migraine, unspecified, not intractable, without status migrainosus; R26.2 Difficulty in walking, not elsewhere classified; T50.916A Underdosing of multiple unspecified drugs, medicaments and biological substances, initial encounter; K30 Functional dyspepsia; G47.00 Insomnia, unspecified; Z68.37 Body mass index [BMI] 37.0-37.9, adult; Z87.19 Personal history of other diseases of the digestive system; Z91.011 Allergy to milk products; Z91.018 Allergy to other foods; Z88.8 Allergy status to other drugs, medicaments and biological substances; Z79.899 Other long term (current) drug therapy; Z79.85 Long-term (current) use of injectable non-insulin antidiabetic drugs; Z79.890 Hormone replacement therapy; Z79.84 Long term (current) use of oral hypoglycemic drugs; Z79.82 Long term (current) use of aspirin; Z91.148 Patient's other noncompliance with medication regimen for other reason; Z98.61 Coronary angioplasty status
CPT/HCPCS: 36415; 70450; 71046; 71275; 74174; 80048; 80053; 81003; 82009; 82150; 83605; 83690; 83880; 84484; 85025; 85610; 85652; 85730; 86140; 93005; 96361; 96374; 96375; 96376; 99285

== ENCOUNTER 2023-03-27 09:50 | Emergency (ER) | payer BC ==
[2023-03-27 09:54] VITALS: RESP 20; TEMP 97.5
[2023-03-27] MEDS ORDERED: ONDANSETRON 4 MG/2 ML VIAL IVP STA (10:07)
[2023-03-27] MEDS ORDERED: SODIUM CHLORIDE 0.9% 1,000 ML IV STA (10:07)
--- NOTE | 2023-03-27 10:09 | ED ---
General Adult HPI - General Chief complaint: Chest Pain Stated complaint: chest pain,headache Time Seen by Provider: 03/27/23 09:55 Source: patient, RN notes reviewed, old records reviewed Mode of arrival: ambulatory Limitations: no limitations - History of Present Illness Initial comments: 62-year-old female presents for reevaluation of epigastric abdominal pain, nausea. Patient was seen with similar symptoms one week ago. She was admitted after having significant testing done including CT brain, CT of the chest and pelvis, laboratory testing. Patient states she continues to have these symptoms. She reports predominantly as epigastric pain with some lower chest pain. Nausea without significant vomiting. And a global headache which is been present for the past one week as well. Patient states that she has an outpatient evaluation with gastroenterology and her insurance would not pay for an inpatient endoscopy. - Related Data Home Medications Medication Instructions Recorded Confirmed Beclomethasone Dipropionate [Qvar 1 puff INHALATION RT-BID 08/05/14 03/21/23 80 mcg/puff] DULoxetine HCL [Cymbalta] 120 mg PO DAILY 08/05/14 03/21/23 Furosemide [Lasix] 20 mg PO DAILY 08/05/14 03/21/23 Montelukast [Singulair] 10 mg PO HS 08/05/14 03/21/23 Omeprazole [PriLOSEC] 20 mg PO BID-W/MEALS 08/05/14 03/21/23 Potassium Chloride [Klor-Con 10] 10 meq PO DAILY 08/05/14 03/21/23 Albuterol Inhaler [Ventolin Hfa 2 puff INHALATION RT-QID PRN 03/25/15 03/21/23 Inhaler] Aspirin EC [Ecotrin Low Dose] 81 mg PO DAILY 03/25/15 03/21/23 Nitroglycerin Sl Tabs [Nitrostat] 0.4 mg SL Q5M PRN 03/25/15 03/21/23 cycloSPORINE [Restasis] 1 drop BOTH EYES Q12H 03/25/15 03/21/23 Cyclobenzaprine [Flexeril] 10 mg PO BID 01/30/18 03/21/23 Docusate [Colace] 100 mg PO DAILY 01/30/18 03/21/23 Melatonin 10 mg PO HS 01/30/18 03/21/23 buPROPion HCL [Wellbutrin XL] 300 mg PO DAILY 01/30/18 03/21/23 Ferrous Sulfate [Iron (65 MG 325 mg PO DAILY 06/07/18 03/21/23 Elemental)] Ascorbic Acid [Vitamin C] 500 mg PO DAILY 12/06/19 03/21/23 Biotin [Biotin Disolve] 5,000 mcg PO DAILY 12/06/19 03/21/23 Calcium/Magnes/[place] 1 tab PO TID 12/06/19 03/21/23 Evening [place] Oil 1,000 mg PO FR 12/06/19 03/21/23 L.acidoph,Paracasei, B.lactis 1 cap PO DAILY 12/06/19 03/21/23 [Probiotic] Levothyroxine Sodium [Synthroid] 100 mcg PO DAILY 12/06/19 03/21/23 Vitamin E 400 unit PO BID 12/06/19 03/21/23 buPROPion XL [Wellbutrin XL] 150 mg PO DAILY 12/06/19 03/21/23 lamoTRIgine [LaMICtal] 200 mg PO HS 12/06/19 03/21/23 Atorvastatin [Lipitor] 20 mg PO HS 04/24/22 03/21/23 Cosamin Asu 1 tab PO DAILY 04/24/22 03/21/23 Dulaglutide [Trulicity] 0.75 mg SQ FR 04/24/22 03/21/23 Omega3/Dha/Epa/Fish Oil/Vit D3 1 cap PO TID 04/24/22 03/21/23 [[place]-3 Plus Vitamin D3 Softgl] Propranolol HCl [Propranolol HCl 120 mg PO DAILY 04/24/22 03/21/23 ER] Cholecalciferol [Vitamin D3 (25 25 mcg PO DAILY 03/21/23 03/21/23 Mcg = 1000 Iu)] Empagliflozin [Jardiance] 25 mg PO DAILY 03/21/23 03/21/23 Hyoscyamine Sulfate [Levsin] 0.125 mg PO TID PRN 03/21/23 03/21/23 Isosorbide Mononitrate ER [Imdur] 30 mg PO DAILY 03/21/23 03/21/23 Pantoprazole [Protonix] 40 mg PO BID 03/21/23 03/21/23 Vitamin B Complex 1 cap PO DAILY 03/21/23 03/21/23 metFORMIN HCL ER [Glucophage XR] 1,000 mg PO BID-W/MEALS 03/21/23 03/21/23 Allergies Allergy/AdvReac Type Severity Reaction Status Date / Time desipramine HCl Allergy Rash/Hives Verified 03/27/23 09:53 [From Norpramin] gluten Allergy Abdominal Verified 03/27/23 09:53 Pain Milk Containing Products AdvReac Abdominal Verified 03/27/23 09:53 Pain YEAST AdvReac Unknown Abdominal Uncoded 03/27/23 09:53 Pain Review of Systems ROS Statement: Those systems with pertinent positive or pertinent negative responses have been documented in the HPI. ROS Other: All systems not noted in ROS Statement are negative. Past Medical History Past Medical History: Asthma, Chest Pain / Angina, Diabetes Mellitus, Eye Disorder, Fibromyalgia, GERD/Reflux, Hearing Disorder / Deafness, Hyperlipidemia, Hypertension, Skin Disorder, Sleep Apnea/CPAP/BIPAP, Thyroid Disorder Additional Past Medical History / Comment(s): Central auditory processing disorder/[place], dysphagia, gastritis, duodenitis, gastroparesis, IBS, NIDDM type II, neuropathy bilateral legs/feet, fatty liver, [place] with Cpap, bilateral glaucoma, eczema, insomnia, hypothyroid, occasional lower leg edema, migraines, chronic cervical/across shoulder/low back pain, anemia, sinus issues. History of Any Multi-Drug Resistant Organisms: None Reported Past Surgical History: Adenoidectomy, Heart Catheterization, Hysterectomy, Orthopedic Surgery, Tonsillectomy Additional Past Surgical History / Comment(s): L hand bone/tendon surgery, R hand surgery d/t dog bite, bilateral carpal tunnel releases, EGD, colonoscopy, cardiac cath 2-3 yrs ago-states it was normal cataract leonidas surgery, rt index finger surgery, Past Anesthesia/Blood Transfusion Reactions: Postoperative Nausea & Vomiting (PONV) Past Psychological History: Anxiety, Depression Smoking Status: Never smoker Past Alcohol Use History: None Reported Past Drug Use History: None Reported - Past Family History Mother Family Medical History: Cancer, Deep Vein Thrombosis (DVT) Additional Family Medical History / Comment(s): Mother of breast cancer. Father Family Medical History: Cancer, Deep Vein Thrombosis (DVT) Additional Family Medical History / Comment(s): Father of prostate cancer. General Exam Limitations: no limitations General appearance: alert, in no apparent distress Head exam: Present: atraumatic, normocephalic Eye exam: Present: normal appearance, PERRL ENT exam: Present: normal exam Neck exam: Present: normal inspection. Absent: tenderness, meningismus Respiratory exam: Present: normal lung sounds bilaterally. Absent: respiratory distress, wheezes Cardiovascular Exam: Present: regular rate, normal rhythm GI/Abdominal exam: Present: soft, tenderness (Epigastric). Absent: distended Extremities exam: Present: normal inspection, normal capillary refill Neurological exam: Present: alert, oriented X3, CN II-XII intact. Absent: motor sensory deficit Psychiatric exam: Present: normal affect, normal mood Course Vital Signs 03/27/23 03/27/23 03/27/23 09:51 10:36 11:26 Temperature 97.5 F L Pulse Rate 74 75 71 Respiratory 20 20 20 Rate Blood Pressure 155/79 128/75 147/86 O2 Sat by Pulse 99 96 97 Oximetry Medical Decision Making - Medical Decision Making Was pt. sent in by a medical professional or institution (, PA, EVENT PROMOTER, urgent care, hospital, or half-way...) When possible be specific @ -No Did you speak to anyone other than the patient for history (EMS, parent, family, police, friend...)? What history was obtained from this source @ -No Did you review nursing and triage notes (agree or disagree)? Why? @ -I reviewed and agree with nursing and triage notes Were old charts reviewed (outside hosp., previous admission, EMS record, old EKG, old radiological studies, urgent care reports/EKG's, half-way records)? Report findings @ -No old charts were reviewed Differential Diagnosis (chest pain, altered mental status, abdominal pain women, abdominal pain men, vaginal bleeding, weakness, fever, dyspnea, syncope, headach e, dizziness, GI bleed, back pain, seizure, CVA, palpatations, mental health, musculoskeletal)? @ -[Differential Abdominal Pain Women: Appendicitis, Cholecystitis, diverticulosis, ischemic bowel, pancreatitis, hepatitis, UTI, gastroenteritis, AAA, incarcerated hernia, bowel obstruction, constipation, inflammatory bowel, hepatitis, peptic ulcer disease, splenic infarction, perforated viscus, vulvitis, ovarian torsion, PID, kidney stone, placenta abruption, this is not meant to be an all-inclusive list EKG interpreted by me (3pts min.). @ -EKG: Sinus rhythm, low voltage, rate of 76, OR interval 155, QRS duration 107, QTC 420, no ST segment elevation. X-rays interpreted by me (1pt min.). @ -[Negative for acute cardiac primary findings CT interpreted by me (1pt min.). @ -None done U/S interpreted by me (1pt. min.). @ -Negative for acute cholecystitis What testing was considered but not performed or refused? (CT, X-rays, U/S, labs)? Why? @ -None What meds were considered but not given or refused? Why? @ -None Did you discuss the management of the patient with other professionals (professionals i.e. Dr., PA, EVENT PROMOTER, lab, RT, psych nurse, social and human services assistant, trouble tracer, teacher, protective officer, major case detective)? Give summary @ -No Was smoking cessation discussed for >3mins.? @ -No Was critical care preformed (if so, how long)? @ -No Were there social determinants of health that impacted care today? How? (Homelessness, low income, unemployed, alcoholism, drug addiction, transportation, low edu. Level, literacy, decrease access to med. care, group home, rehab)? @ -No Was there de-escalation of care discussed even if they declined (Discuss DNR or withdrawal of care, Hospice)? DNR status @ -No What co-morbidities impacted this encounter? (DM, HTN, Smoking, COPD, CAD, Cancer, CVA, ARF, Chemo, Hep., AIDS, mental health diagnosis, sleep apnea, mor bid obesity)? @ -[Hypertension, diabetes Was patient admitted / discharged? Hospital course, mention meds given and route, prescriptions, significant lab abnormalities, going to OR and other pertinent info. @ -62-year-old female presenting with epigastric pain. Patient had significant workup performed in the past several months including heart catheterization in November which showed normal coronary arteries. She had a CT of the chest a bdomen pelvis performed within the week which was negative for acute findings. She had cardiology consultation as well as general surgery consultation. Today her testing is unremarkable with the exception of mild hyperglycemia. She has normal CBC, normal CMP, normal liver enzymes, normal lipase. She has a negative ultrasound of the gallbladder. Patient states she has an appointment within the upcoming week with gastroenterology. I do feel she is stable for discharge at this time. Undiagnosed new problem with uncertain prognosis? @ -No Drug Therapy requiring intensive monitoring for toxicity (Heparin, Nitro, Insulin, Cardizem)? @ -No Were any procedures done? @ -No Diagnosis/symptom? @ -Abdominal pain Acute, or Chronic, or Acute on Chronic? @ Acute on chronic Uncomplicated (without systemic symptoms) or Complicated (systemic symptoms)? @ -default Side effects of treatment? @ -No Exacerbation, Progression, or Severe Exacerbation? @ -No Poses a threat to life or bodily function? How? (Chest pain, [place], [place], pneumonia, PE, COPD, DKA, ARF, appy, cholecystitis, CVA, Diverticulitis, Homicidal, Suicidal, threat to staff... and all critical care pts) @ -[Low risk - Lab Data Result diagrams: 03/27/23 10:26 03/27/23 10:26 Lab Results 03/27/23 03/27/23 03/27/23 Range/Units 10:26 10:26 10:26 WBC 7.3 (3.8-10.6) k/uL RBC 4.52 (3.80-5.40) m/uL Hgb 13.6 (11.4-16.0) gm/dL Hct 41.3 (34.0-46.0) % MCV 91.3 (80.0-100.0) fL MCH 30.0 (25.0-35.0) pg MCHC 32.9 (31.0-37.0) g/dL RDW 14.4 (11.5-15.5) % Plt Count 204 (150-450) k/uL MPV 9.4 Neutrophils % 62 % Lymphocytes % 26 % Monocytes % 7 % Eosinophils % 2 % Basophils % 1 % Neutrophils # 4.5 (1.3-7.7) k/uL Lymphocytes # 1.9 (1.0-4.8) k/uL Monocytes # 0.5 (0-1.0) k/uL Eosinophils # 0.2 (0-0.7) k/uL Basophils # 0.0 (0-0.2) k/uL PT 10.0 (9.0-12.0) sec INR 0.9 (<1.2) APTT 22.3 (22.0-30.0) sec Sodium 136 L (137-145) mmol/L Potassium 4.4 (3.5-5.1) mmol/L Chloride 101 (98-107) mmol/L Carbon Dioxide 26 (22-30) mmol/L Anion Gap 9 mmol/L BUN 10 (7-17) mg/dL Creatinine 0.41 L (0.52-1.04) mg/dL Est GFR (CKD-EPI)AfAm >90 (>60 ml/min/1.73 sqM) Est GFR (CKD-EPI)NonAf >90 (>60 ml/min/1.73 sqM) Glucose 269 H (74-99) mg/dL Calcium 9.1 (8.4-10.2) mg/dL Magnesium 1.6 (1.6-2.3) mg/dL Total Bilirubin 0.6 (0.2-1.3) mg/dL AST 30 (14-36) U/L ALT 27 (4-34) U/L Alkaline Phosphatase 66 (38-126) U/L Troponin I (0.000-0.034) ng/mL Total Protein 6.4 (6.3-8.2) g/dL Albumin 4.1 (3.5-5.0) g/dL Lipase 291 (23-300) U/L 03/27/23 Range/Units 10:26 WBC (3.8-10.6) k/uL RBC (3.80-5.40) m/uL Hgb (11.4-16.0) gm/dL Hct (34.0-46.0) % MCV (80.0-100.0) fL MCH (25.0-35.0) pg MCHC (31.0-37.0) g/dL RDW (11.5-15.5) % Plt Count (150-450) k/uL MPV Neutrophils % % Lymphocytes % % Monocytes % % Eosinophils % % Basophils % % Neutrophils # (1.3-7.7) k/uL Lymphocytes # (1.0-4.8) k/uL Monocytes # (0-1.0) k/uL Eosinophils # (0-0.7) k/uL Basophils # (0-0.2) k/uL PT (9.0-12.0) sec INR (<1.2) APTT (22.0-30.0) sec Sodium (137-145) mmol/L Potassium (3.5-5.1) mmol/L Chloride (98-107) mmol/L Carbon Dioxide (22-30) mmol/L Anion Gap mmol/L BUN (7-17) mg/dL Creatinine (0.52-1.04) mg/dL Est GFR (CKD-EPI)AfAm (>60 ml/min/1.73 sqM) Est GFR (CKD-EPI)NonAf (>60 ml/min/1.73 sqM) Glucose (74-99) mg/dL Calcium (8.4-10.2) mg/dL Magnesium (1.6-2.3) mg/dL Total Bilirubin (0.2-1.3) mg/dL AST (14-36) U/L ALT (4-34) U/L Alkaline Phosphatase (38-126) U/L Troponin I <0.012 (0.000-0.034) ng/mL Total Protein (6.3-8.2) g/dL Albumin (3.5-5.0) g/dL Lipase (23-300) U/L Disposition Clinical Impression: Abdominal pain of unknown etiology Disposition: HOME SELF-CARE Condition: Fair Instructions (If sedation given, give patient instructions): Abdominal Pain (ED) Is patient prescribed a controlled substance at d/c from ED?: No Referrals: Shun Shaw DO [Primary Care Provider] - 1-2 days Fabi Urbano MD [STAFF PHYSICIAN] - 1-2 days Time of Disposition: 12:11
[2023-03-27 10:50] LABS: Basophils % (A) 1 %; Eosinophils # (A) 0.2 k/uL (0-0.7); Eosinophils % (A) 2 %; HCT 41.3 % (34.0-46.0); HGB 13.6 gm/dL (11.4-16.0); Lymphocytes # (A) 1.9 k/uL (1.0-4.8); Lymphocytes % (A) 26 %; MCHC 32.9 g/dL (31.0-37.0); MCV 91.3 fL (80.0-100.0); Mean Platelet Volume 9.4; Monocytes # (A) 0.5 k/uL (0-1.0); Monocytes % (A) 7 %; Neutrophils # (A) 4.5 k/uL (1.3-7.7); Neutrophils % (A) 62 %; Platelet Count 204 k/uL (150-450); RBC 4.52 m/uL (3.80-5.40); RDW 14.4 % (11.5-15.5); WBC 7.3 k/uL (3.8-10.6)
[2023-03-27 11:09] LABS: ALT 27 U/L (4-34); African American GFR (CKD) >90 (>60 ml/min/1.73 sqM); Albumin 4.1 g/dL (3.5-5.0); Anion Gap 9 mmol/L; Blood Urea Nitrogen 10 mg/dL (7-17); Calcium 9.1 mg/dL (8.4-10.2); Carbon Dioxide 26 mmol/L (22-30); Chloride 101 mmol/L (98-107); Glucose 269 mg/dL (74-99); Lipase 291 U/L (23-300); Non-African American GFR(CKD) >90 (>60 ml/min/1.73 sqM); Sodium 136 mmol/L (137-145); Total Bilirubin 0.6 mg/dL (0.2-1.3); Total Protein 6.4 g/dL (6.3-8.2)
[2023-03-27 11:10] LABS: AST 30 U/L (14-36); Alkaline Phosphatase 66 U/L (38-126); INR 0.9 (<1.2); Magnesium 1.6 mg/dL (1.6-2.3); Partial Thromboplastin Time 22.3 sec (22.0-30.0); Potassium 4.4 mmol/L (3.5-5.1)
--- NOTE | 2023-03-27 11:23 | XR ---
EXAMINATION TYPE: XR chest 2V DATE OF EXAM: 03/27/2023 COMPARISON: 03/21/2023 HISTORY: Shortness of breath TECHNIQUE: Frontal and lateral views of the chest are obtained. FINDINGS: Scattered senescent parenchymal changes noted. Hyperinflation compatible with COPD. No evidence for infiltrate. No evidence for atelectasis. Heart size is stable. Mediastinal structures are stable and grossly unremarkable. No evidence for hilar prominence. Degenerative changes dorsal spine. IMPRESSION: 1. No evidence for acute pulmonary disease.
--- NOTE | 2023-03-27 11:25 | US ---
EXAMINATION TYPE: US gallbladder DATE OF EXAM: 03/27/2023 COMPARISON: CTa 03/21/23, US Gallbladder 04/25/22 CLINICAL INDICATION: Female, 62 years old with history of pain; Pain x 2 weeks. TECHNIQUE: Multiple sonographic images of the right upper quadrant are obtained. FINDINGS: EXAM MEASUREMENTS: Liver Length: 24.8 cm Gallbladder Wall: 0.23 cm CBD: 0.42 cm Right Kidney: 13.5 x 6.1 x 5.1 cm MUSEUM REGISTRAR NOTES: Limited due to gas and patient body habitus. Pancreas: Not well seen Liver: Appears enlarged and heterogeneous with increased echogenicity. *Hypoechoic area seen near th e gallbladder suggestive of focal fatty sparin.5 x 1.0 x 1.8 cm Gallbladder: Appears wnl Evidence for sonographic Rosas's sign: No CBD: Portions seen appear wnl Right Kidney: Appears enlarged. IMPRESSION: 1. Hepatic steatosis and hepatomegaly with areas of focal fatty sparing.
[2023-03-27] MEDS ORDERED: KETOROLAC 15 MG/ML 1 ML VIAL IVP STA (11:27)
[2023-03-27 12:32] VITALS: BP 149/79; PULSE 74
== END 2023-03-27 12:41 | disposition home or self-care (01) ==
LOC: EC 09:50
DX: R10.13 Epigastric pain (principal); E11.65 Type 2 diabetes mellitus with hyperglycemia; E11.40 Type 2 diabetes mellitus with diabetic neuropathy, unspecified; E11.36 Type 2 diabetes mellitus with diabetic cataract; I10 Essential (primary) hypertension; E78.5 Hyperlipidemia, unspecified; J45.909 Unspecified asthma, uncomplicated; E03.9 Hypothyroidism, unspecified; F32.A Depression, unspecified; F41.9 Anxiety disorder, unspecified; M79.7 Fibromyalgia; K21.9 Gastro-esophageal reflux disease without esophagitis; Z79.890 Hormone replacement therapy; Z79.51 Long term (current) use of inhaled steroids; Z79.82 Long term (current) use of aspirin; Z79.84 Long term (current) use of oral hypoglycemic drugs; Z79.899 Other long term (current) drug therapy; Z91.011 Allergy to milk products; Z91.018 Allergy to other foods; Z88.8 Allergy status to other drugs, medicaments and biological substances
CPT/HCPCS: 36415; 93005; 80053; 83690; 83735; 84484; 85025; 85610; 85730; 71046; 76705; 99285; 96374; 96375; 96361; J2405; J1885

== ENCOUNTER 2023-05-24 08:11 | Day surgery (SDC) | payer BC ==
[2023-05-20 13:20] VITALS: BMI 36.6
[~2023-05-24 08:11] MED LIST changes: -LIDOCAINE 1% 20 ML VIAL (10MG/ML) FOR IV START INTRADERMA PRN; -LIDOCAINE 1% INJ 10MG/ML (20 ML MDV) ONE; -ONDANSETRON 4 MG/2 ML VIAL IVP ONE; -PROPOFOL 10 MG/ML 20 ML VIAL IV ONE
[2023-05-24 08:36] VITALS: TEMP 97
[2023-05-24 08:43] LABS: Glucose,Whole Blood 178 mg/dL (70-110)
[2023-05-24] MEDS ORDERED: PROPOFOL 10 MG/ML 20 ML VIAL IV ONE (09:14)
[2023-05-24] MEDS ORDERED: fentaNYL (PF) 50 MCG/ML 2 ML AMP ONE (09:14)
[2023-05-24] MEDS ORDERED: LIDOCAINE 2% INJ 20 MG/ML (2 ML VIAL) ONE (09:14)
[2023-05-24] MEDS ORDERED: MIDAZOLAM 2 MG/2 ML VIAL ONE (09:14)
--- NOTE | 2023-05-24 09:28 | P.PCN ---
Date of Procedure: 05/24/23 Procedure(s) Performed: BRIEF HISTORY: Patient is a 62-year-old, pleasant, white white female scheduled for an upper endoscopy as a part of evaluation long-standing history of GERD/worsening heartburn and intermittent dysphagia to solids.. She also has long-standing history of diabetes mellitus. PROCEDURE PERFORMED: Esophagogastroduodenoscopy with biopsy. PREOPERATIVE DIAGNOSIS: Long-standing history of GERD/intermittent dysphagia to solids. IV sedation per anesthesia. PROCEDURE: After informed consent was obtained, the patient was brought into the endoscopy unit. IV sedation was administered by Anesthesia under continuous monitoring. Initially the Olympus GIF-140 video endoscope was inserted into the mouth. Esophagus intubated without any difficulty. It was gradually advanced into the stomach and duodenum and carefully examined. The bulb of the duodenum appeared normal. In the second part of the duodenum there were multiple small punctate like ulcerations noted which were biopsied. The scope at this time was withdrawn to the stomach, adequately insufflated with air, and upon careful examination, mucosa of the antrum, and mild gastritis and biopsies were done from this area. Small gastric polyps noted. Mucosa of the body, cardia and the fundus appeared normal. The scope was then withdrawn into the esophagus. The GE junction was located at 39 cm from the incisors. The esophagus appeared normal. There were no erosions or ulcerations seen and the patient tolerated the proced ure well. IMPRESSION: 1. Multiple small punctate like duodenal ulcers and the second part of the duodenum, status post biopsy 2. Mild antral gastritis and small gastric polyps.. 3. Normal-appearing esophagus with no evidence of esophagitis or esophageal stricture RECOMMENDATIONS: The findings of this examination were discussed with the patient as well as a family. She was advised to follow with the biopsy. In the meantime she will continue with omeprazole 20 mg twice daily and follow antireflux measures.
[2023-05-24 09:32] VITALS: PULSE 78
[2023-05-24 09:51] VITALS: BP 146/76; RESP 18
== END 2023-05-24 09:59 | disposition home or self-care (01) ==
LOC: ORWHC2ENDO 08:11
PROVIDERS: ATTEND Internal Medicine Gastroenterology
DX: K29.50 Unspecified chronic gastritis without bleeding (principal); K26.9 Duodenal ulcer, unspecified as acute or chronic, without hemorrhage or perforation; R13.10 Dysphagia, unspecified; K31.7 Polyp of stomach and duodenum; I10 Essential (primary) hypertension; E78.5 Hyperlipidemia, unspecified; E11.9 Type 2 diabetes mellitus without complications; E07.9 Disorder of thyroid, unspecified; Z91.013 Allergy to seafood; M79.7 Fibromyalgia; Z79.84 Long term (current) use of oral hypoglycemic drugs; Z79.85 Long-term (current) use of injectable non-insulin antidiabetic drugs; Z79.890 Hormone replacement therapy; Z79.899 Other long term (current) drug therapy
CPT/HCPCS: 88305; 88342; 43239; J2250; J3010; J2704; J2001

== ENCOUNTER → 2024-05-02 | Outpatient (CLI) | payer BC ==
[2024-05-02 13:17] VITALS: BP 190/79; PULSE 92; RESP 16; TEMP 97.6
--- NOTE | 2024-05-02 14:04 | P.PAINPG ---
Objective - Vital Signs Vital signs: Vital Signs Temp 97.6 F 05/02/24 13:14 Pulse 92 05/02/24 13:14 Resp 16 05/02/24 13:14 BP 190/79 05/02/24 13:14 Pulse Ox 98 05/02/24 13:14 FiO2 Intake & Output 05/01/24 05/02/24 05/02/24 18:59 06:59 18:59 Weight 81.647 kg PQRS Measure Charge Sheet Mode of Arrival: Ambulatory Comment: HISTORY OF PRESENT ILLNESS: A 63 yr old female as a referral from Dr Leach presents today w severe and chronic neck and ALEJANDRO secondary to occipital neuralgia, cervicogenic ALEJANDRO for evaluation. Pt states pain level is provoked at 8 /10 in intensity, constant, localized in the upper neck, predominantly axial, throbbing in character w occasional shooting pain towards the top of the head. Pain is provoked by cold weather. Pain is alleviated by massage therapy monthly x 1 yr w last visit in Mar 2024, chiropractic treatments semi monthly since Oct 2023, heat, ice, medications (Aleve) topical Icy-Hot & BioFreeze, repositioning and rest . PMH: OA, Asthma, Angina, IDDM II, Fibromyalgia, GERD, [place], Hyperlipidemia, Hypertension, OSAP, Hypothyroidism, IBS, Glaucoma, Eczema PSH: Adenoidectomy, Heart Catheterization (2020), Hysterectomy, Orthopedic Surgery, Tonsillectomy, L Hand Surgery, R Hand Debridement s/p dog bite. BL CTR, EGD (2022), Colonoscopy SH: Negative x3 FH: Mo- DVT, Breast CA, . Fa- DVT, Prostate CA, . All: See list Meds: See list REVIEW OF ORGAN SYSTEMS: CONSTITUTIONAL: No fevers or chills. No recent weight loss. NEUROLOGICAL: + numbness and tingling along the distal extremities. No seizure disorders or headaches. MUSCULOSKELETAL: + pain PSYCHIATRIC: Denies current depression or suicidal thoughts. Physical Examinations : Constitutional : Cooperative , not in acute distress . Neurologic : Cranial nerve II to XII intact. No focal neurological deficits. Psychiatric : alert & oriented x 3. Matching mood & appropriate affect. Judgment & insight intact. Musculoskeletal : Cervical Spine +BL JASON TTP Motor strength in the deltoid and b iceps: Normal right side. Normal Left side Motor strength biceps and the wrist extensors: Normal right side . Normal left side Motor strength in the triceps muscle: Normal right side. Normal left side Deep tendon reflexes: Normal at the biceps. Normal at Brachioradialis. Normal at triceps Vertebral body tenderness to deep palpation over Cervical facet loading test: positive bilaterally Spurling test: positive bilaterally Neck distraction test: positive bilaterally Mayra sign: positive bilaterally Lumbar spine Motor strength lower extremities ,thigh and legs 5/5 Right side , 5/5 Left side Deep tendon reflexes : Normal Knee Jerk. Normal Ankle Jerk Vertebral body tenderness over Diop Test positive Lumbar facet Loading Test: positive Right / positive Left Range of motion of the lumbar spine Flexion 30 degrees, extension 10 degrees Straight Leg Raise test: Left/ Right positive at degrees Miquel test: positive right / positive left. Severe tenderness over the Sacroiliac joint on the Right / Left sides Gaenslen test: positive bilaterally Seated flexion test: positive bilaterally. Sacral spine : Severe tenderness over the Sacroiliac joint: right side / left side Range of motion: Flexion of the lumbar spine <60 degrees Range of motion: Extension of the lumbar spine <20 degrees Gaenslen's Test positive Miquel test: positive right side / left side Thigh Thrust Test Sacral Thrust Test Imaging: CT non contrast brain from 03/21/23 reveiwed Assessment/ Plan : Occipital Neuralgia, Cervicogenic ALEJANDRO Recommendation of BL JASON injection #1. May need a series of injections for optimal pain relief. Risks, benefits of procedure discussed and patient verbalized understanding. Admits to anti- coagulant use or medical history of diabetes. Protocol for discontinuation/ continuation of medications sean procedure discussed. All questions answered. I have spent greater than 30 minutes on patient care today. Dr Contreras was available by phone for the evaluation of this patient. The time was used to review the medical records including relevant urine studies and Prescription history (MAPs), review of the available imaging, evaluation and examination of the patient, coordination of care with the medical staff and if applicable referring physicians, as well as creation of the medical record - Pain Location Head Pharmacological Interventions: PRN Medication PQRS Narrative: Smoking Status Never smoker Blood Pressure 190/79 Pain Intensity [Head] 8 Scale Used Numeric (1 - 10) Home Medications: Ambulatory Orders Beclomethasone Dipropionate [Qvar 80 mcg/puff] 1 puff INHALATION RT-BID 08/05/14 DULoxetine HCL [Cymbalta] 120 mg PO DAILY 08/05/14 Furosemide [Lasix] 20 mg PO DAILY 08/05/14 Montelukast [Singulair] 10 mg PO HS 08/05/14 Omeprazole [PriLOSEC] 20 mg PO BID-W/MEALS 08/05/14 Albuterol Inhaler [Ventolin Hfa Inhaler] 2 puff INHALATION RT-QID PRN 03/25/15 Aspirin EC [Ecotrin Low Dose] 81 mg PO DAILY 03/25/15 Nitroglycerin Sl Tabs [Nitrostat] 0.4 mg SL Q5M PRN 03/25/15 cycloSPORINE [Restasis] 1 drop BOTH EYES Q12H 03/25/15 Cyclobenzaprine [Flexeril] 10 mg PO BID 01/30/18 Docusate [Colace] 100 mg PO DAILY 01/30/18 Melatonin 10 mg PO HS 01/30/18 buPROPion HCL [Wellbutrin XL] 300 mg PO DAILY 01/30/18 Ferrous Sulfate [Iron (65 MG Elemental)] 325 mg PO DAILY 06/07/18 Ascorbic Acid [Vitamin C] 500 mg PO DAILY 12/06/19 Calcium/Magnes/[place] 1 tab PO TID 12/06/19 L.acidoph,Paracasei, B.lactis [Probiotic] 1 cap PO DAILY 12/06/19 Levothyroxine Sodium [Synthroid] 100 mcg PO DAILY 12/06/19 Vitamin E 400 unit PO BID 12/06/19 buPROPion XL [Wellbutrin XL] 150 mg PO DAILY 12/06/19 lamoTRIgine [LaMICtal] 200 mg PO HS 12/06/19 Atorvastatin [Lipitor] 20 mg PO HS 04/24/22 Cosamin Asu 1 tab PO DAILY 04/24/22 Dulaglutide [Trulicity] 0.75 mg SQ FR 04/24/22 Omega3/Dha/Epa/Fish Oil/Vit D3 [[place]-3 Plus Vitamin D3 Softgl] 1 cap PO TID 04/24/22 Propranolol HCl [Propranolol HCl ER] 120 mg PO DAILY 04/24/22 Cholecalciferol [Vitamin D3 (25 Mcg = 1000 Iu)] 25 mcg PO DAILY 03/21/23 Empagliflozin [Jardiance] 25 mg PO DAILY 03/21/23 Hyoscyamine Sulfate [Levsin] 0.125 mg PO TID PRN 03/21/23 Isosorbide Mononitrate ER [Imdur] 30 mg PO DAILY 03/21/23 Pantoprazole [Protonix] 40 mg PO BID 03/21/23 Vitamin B Complex 1 cap PO DAILY 03/21/23 metFORMIN HCL ER [Glucophage XR] 1,000 mg PO BID-W/MEALS 03/21/23 Potassium Citrate [Potassium Citrate ER] 10 meq PO DAILY 05/20/23 Sucralfate [Carafate] 1 gm PO BID 05/20/23 Controlled Substance Measures - Controlled Substance Measures Is patient prescribed a controlled substance at discharge?: No
== END ==
LOC: PNWHC3 12:57
PROVIDERS: ATTEND Specialist
DX: M54.81 Occipital neuralgia (principal); G44.86 Cervicogenic headache; Z88.8 Allergy status to other drugs, medicaments and biological substances; Z91.011 Allergy to milk products; Z91.018 Allergy to other foods
CPT/HCPCS: 99211

== ENCOUNTER 2024-05-29 10:00 | Day surgery (SDC) | payer BC ==
[2024-05-29] MEDS ORDERED: ROPIVACAINE 5MG/ML 20ML VIAL ONE (11:17)
[2024-05-29] MEDS ORDERED: DEXAMETHASONE SOD PHOSPHATE 10 MG/ML 1 ML VIAL ONE (11:17)
== END 2024-05-29 11:34 | disposition home or self-care (01) ==
LOC: ORPAIN 10:00
PROVIDERS: ATTEND Anesthesiology
DX: M54.81 Occipital neuralgia (principal); Z88.5 Allergy status to narcotic agent; Z88.8 Allergy status to other drugs, medicaments and biological substances; Z91.011 Allergy to milk products; Z91.018 Allergy to other foods
CPT/HCPCS: 64405

== ENCOUNTER → 2024-07-02 | Outpatient (CLI) | payer BC ==
[2024-07-02 13:48] VITALS: BP 153/84; PULSE 86; RESP 16; TEMP 96.8
--- NOTE | 2024-07-02 14:15 | P.PAINPG ---
PQRS Measure Charge Sheet Comment: HISTORY OF PRESENT ILLNESS: A 63 yr old female presents today w severe and chronic neck and ALEJANDRO secondary to occipital neuralgia, cervicogenic ALEJANDRO for evaluation s/p BL JASON injection #1. Pt states she experienced 85 % pain relief x 3 wks s/p procedure. Pt states pain level is provoked at 8 /10 in intensity, constant, localized in the upper neck, predominantly axial, throbbing in character w occasional shooting pain towards the top of the head. Pain is provoked by cold weather. Pain is alleviated by massage therapy monthly x 1 yr w last visit in Mar 2024, chiropractic treatments semi monthly since Oct 2023, heat, ice, medications, topical , repositioning and rest . Interventional procedures include BL JASON injection x1 Medications include Aleve, Icy-Hot, BioFreeze REVIEW OF ORGAN SYSTEMS: CONSTITUTIONAL: No fevers or chills. No recent weight loss. NEUROLOGICAL: + numbness and tingling along the distal extremities. No seizure disorders or headaches. MUSCULOSKELETAL: + pain PSYCHIATRIC: Denies current depression or suicidal thoughts. Physical Examinations : Constitutional : Cooperative , not in acute distress . Neurologic : Cranial nerve II to XII intact. No focal neurological deficits. Psychiatric : alert & oriented x 3. Matching mood & appropriate affect. Judgment & insight intact. Musculoskeletal : Cervical Spine +BL JASON TTP Motor strength in the deltoid and biceps: Normal right side. Normal Left side Motor strength biceps and the wrist extensors: Normal right side . Normal left side Motor strength in the triceps muscle: Normal right side. Normal left side Deep tendon reflexes: Normal at the biceps. Normal at Brachioradialis. Normal at triceps Vertebral body tenderness to deep palpation over Cervical facet loading test: positive bilaterally Spurling test: positive bilaterally Neck distraction test: positive bilaterally Mayra sign: positive bilaterally Lumbar spine Motor strength lower extremities ,thigh and legs 5/5 Right side , 5/5 Left side Deep tendon reflexes : Normal Knee Jerk. Normal Ankle Jerk Vertebral body tenderness over Diop Test positive Lumbar facet Loading Test: positive Right / positive Left Range of motion of the lumbar spine Flexion 30 degrees, extension 10 degrees Straight Leg Raise test: Left/ Right positive at degrees Miquel test: positive right / positive left. Severe tenderness over the Sacroiliac joint on the Right / Left sides Gaenslen test: positive bilaterally Seated flexion test: positive bilaterally. Sacral spine : Severe tenderness over the Sacroiliac joint: right side / left side Range of motion: Flexion of the lumbar spine <60 degrees Range of motion: Extension of the lumbar spine <20 degrees Gaenslen's Test positive Miquel test: positive right side / left side Thigh Thrust Test Sacral Thrust Test Imaging: CT non contrast brain from 03/21/23 reveiwed Assessment/ Plan : Occipital Neuralgia, Cervicogenic ALEJANDRO Will manage residual pain and may RTC on an as needed basis. All questions answered. I have spent greater than 30 minutes on patient care today. Dr Contreras was available by phone for the evaluation of this patient. The time was used to review the medical records including relevant urine studies and Prescription history (MAPs), review of the available imaging, evaluation and examination of the patient, coordination of care with the medical staff and if applicable referring physicians, as well as creation of the medical record PQRS Narrative: Smoking Status Never smoker Home Medications: Ambulatory Orders Beclomethasone Dipropionate [Qvar 80 mcg/puff] 1 puff INHALATION RT-BID 08/05/14 DULoxetine HCL [Cymbalta] 120 mg PO DAILY 08/05/14 Furosemide [Lasix] 20 mg PO DAILY 08/05/14 Montelukast [Singulair] 10 mg PO HS 08/05/14 Omeprazole [PriLOSEC] 20 mg PO BID-W/MEALS 08/05/14 Albuterol Inhaler [Ventolin Hfa Inhaler] 2 puff INHALATION RT-QID PRN 03/25/15 Aspirin EC [Ecotrin Low Dose] 81 mg PO DAILY 03/25/15 Nitroglycerin Sl Tabs [Nitrostat] 0.4 mg SL Q5M PRN 03/25/15 cycloSPORINE [Restasis] 1 drop BOTH EYES Q12H 03/25/15 Cyclobenzaprine [Flexeril] 10 mg PO BID 01/30/18 Docusate [Colace] 100 mg PO DAILY 01/30/18 Melatonin 10 mg PO HS 01/30/18 buPROPion HCL [Wellbutrin XL] 300 mg PO DAILY 01/30/18 Ferrous Sulfate [Iron (65 MG Elemental)] 325 mg PO DAILY 06/07/18 Ascorbic Acid [Vitamin C] 500 mg PO DAILY 12/06/19 Calcium/Magnes/[place] 1 tab PO TID 12/06/19 L.acidoph,Paracasei, B.lactis [Probiotic] 1 cap PO DAILY 12/06/19 Levothyroxine Sodium [Synthroid] 100 mcg PO DAILY 12/06/19 Vitamin E 400 unit PO BID 12/06/19 buPROPion XL [Wellbutrin XL] 150 mg PO DAILY 12/06/19 lamoTRIgine [LaMICtal] 200 mg PO HS 12/06/19 Atorvastatin [Lipitor] 20 mg PO HS 04/24/22 Cosamin Asu 1 tab PO DAILY 04/24/22 Dulaglutide [Trulicity] 0.75 mg SQ FR 04/24/22 Omega3/Dha/Epa/Fish Oil/Vit D3 [[place]-3 Plus Vitamin D3 Softgl] 1 cap PO TID 04/24/22 Propranolol HCl [Propranolol HCl ER] 120 mg PO DAILY 04/24/22 Cholecalciferol [Vitamin D3 (25 Mcg = 1000 Iu)] 25 mcg PO DAILY 03/21/23 Empagliflozin [Jardiance] 25 mg PO DAILY 03/21/23 Hyoscyamine Sulfate [Levsin] 0.125 mg PO TID PRN 03/21/23 Isosorbide Mononitrate ER [Imdur] 30 mg PO DAILY 03/21/23 Pantoprazole [Protonix] 40 mg PO BID 03/21/23 Vitamin B Complex 1 cap PO DAILY 03/21/23 metFORMIN HCL ER [Glucophage XR] 1,000 mg PO BID-W/MEALS 03/21/23 Potassium Citrate [Potassium Citrate ER] 10 meq PO DAILY 05/20/23 Sucralfate [Carafate] 1 gm PO BID 05/20/23 Controlled Substance Measures - Controlled Substance Measures Is patient prescribed a controlled substance at discharge?: No
== END ==
LOC: PNWHC3 13:34
PROVIDERS: ATTEND Specialist
DX: M54.81 Occipital neuralgia
CPT/HCPCS: 99211

== ENCOUNTER → 2024-11-27 | Outpatient (CLI) | payer BC ==
[2024-11-27 19:13] LABS: ALT 36 U/L (8-44); AST 24 U/L (13-35); Albumin 4.3 g/dL (3.8-4.9); Albumin/Globulin Ratio 1.87 Ratio (1.60-3.17); Alkaline Phosphatase 68 U/L (41-126); Blood Urea Nitrogen 13.6 mg/dL (9.0-27.0); Calcium 9.6 mg/dL (8.7-10.3); Carbon Dioxide 22.3 mmol/L (21.6-31.8); Chloride 103 mmol/L (96-109); Chol/HDL Ratio 4.02 Ratio; Globulin 2.3 g/dL (1.6-3.3); Glucose 179 mg/dL (70-110); LDL Cholesterol,Calculated 70.1 mg/dL (0.0-131.0); Sodium 141 mmol/L (135-145); Total Bilirubin 0.3 mg/dL (0.3-1.2); Total Protein 6.6 g/dL (6.2-8.2)
== END | disposition home or self-care (01) ==
LOC: LABWHC1 10:58
PROVIDERS: ATTEND Internal Medicine Interventional Cardiology
DX: E78.2 Mixed hyperlipidemia (principal)
CPT/HCPCS: 36415; 80053; 80061

== ENCOUNTER → 2025-01-16 | Day surgery (SDC) | payer BC ==
[2025-01-15 09:28] VITALS: BMI 32.9
[~2025-01-16] MED LIST changes: -LACTATED RINGERS 1,000 ML IV SCH; +LIDOCAINE 1% INJ 10MG/ML (20 ML MDV) ONE; +PROPOFOL 10 MG/ML 20 ML VIAL IV ONE
[2025-01-16] MEDS: LIDOCAINE 1% (10MG/ML) FOR IV START INTRADERMA PRN (07:56)
[2025-01-16 07:58] VITALS: RESP 16; TEMP 96.7
[2025-01-16] MEDS: LACTATED RINGERS 1,000 ML IV SCH (07:58)
[2025-01-16] MEDS: IV FLUID CONTINUATION 1,000 ML IV ONE (07:58)
[2025-01-16] MEDS: ONDANSETRON 4 MG/2 ML VIAL IVP STA (08:02)
[2025-01-16 08:04] LABS: Glucose,Whole Blood 171 mg/dL (70-110)
--- NOTE | 2025-01-16 08:16 | P.PCN ---
Date of Procedure: 01/16/25 Procedure(s) Performed: BRIEF HISTORY: Patient is a 64-year-old, pleasant, white female scheduled for an upper endoscopy as a part evaluation of chronic epigastric pain and history of GERD. She also complains of intermittent dysphagia to solids. PROCEDURE PERFORMED: Esophagogastroduodenoscopy with biopsy. PREOPERATIVE DIAGNOSIS: Chronic epigastric pain and intermittent dysphagia to solids. IV sedation per anesthesia. PROCEDURE: After informed consent was obtained, the patient was brought into [facility] endoscopy unit. IV sedation was administered by Anesthesia under continuous monitoring. Initially the Olympus GIF-140 video endoscope was inserted into the mouth. Esophagus intubated without any difficulty. It was gradually advanced into the stomach and duodenum and carefully examined. The bulb and the second part of the duodenum appeared normal. The scope at this time was withdrawn to the stomach, adequately insufflated with air, and upon careful examination, mucosa of the antrum, had mild gastritis and biopsies were done from this area. There was large amount of retained solid food in the body of the stomach suggestive of diabetic gastroparesis. The visualized portions of the body, cardia and the fundus appeared normal. The scope was then withdrawn into the esophagus. Small hiatal hernia noted. The GE junction was located at 39 cm from the incisors. Small hiatal hernia noted. The esophagus appeared normal. There were no erosions or ulcerations seen. No evidence of esophageal stricture and the patient tolerated the procedure well. IMPRESSION: 1. Retained food in the stomach suggestive of diabetic gastroparesis. 2. Mild antral gastritis 3. Small hiatal hernia but no evidence of esophagitis or esophageal stricture. RECOMMENDATIONS: The findings of this examination were discussed with the patient as well as her family. She was advised to follow-up with the biopsy results. Continue with current medications and do recommend aggressive control of blood sugars. Advised small frequent meals..
[2025-01-16 08:41] VITALS: BP 126/67; PULSE 82
== END ==
LOC: ORWHC2ENDO 07:29
PROVIDERS: ATTEND Internal Medicine Gastroenterology
DX: K29.50 Unspecified chronic gastritis without bleeding (principal); K44.9 Diaphragmatic hernia without obstruction or gangrene; G89.29 Other chronic pain; I25.10 Atherosclerotic heart disease of native coronary artery without angina pectoris; I10 Essential (primary) hypertension; E78.5 Hyperlipidemia, unspecified; J45.909 Unspecified asthma, uncomplicated; G47.33 Obstructive sleep apnea (adult) (pediatric); Z99.89 Dependence on other enabling machines and devices; E07.9 Disorder of thyroid, unspecified; E11.40 Type 2 diabetes mellitus with diabetic neuropathy, unspecified; G43.909 Migraine, unspecified, not intractable, without status migrainosus; M79.7 Fibromyalgia; H91.90 Unspecified hearing loss, unspecified ear; M19.90 Unspecified osteoarthritis, unspecified site; K76.0 Fatty (change of) liver, not elsewhere classified; F41.9 Anxiety disorder, unspecified; F32.A Depression, unspecified; G47.00 Insomnia, unspecified; K58.9 Irritable bowel syndrome, unspecified; Z79.51 Long term (current) use of inhaled steroids; Z79.899 Other long term (current) drug therapy; Z79.82 Long term (current) use of aspirin; Z79.890 Hormone replacement therapy; Z88.8 Allergy status to other drugs, medicaments and biological substances; Z91.048 Other nonmedicinal substance allergy status; Z91.018 Allergy to other foods; Z91.011 Allergy to milk products
CPT/HCPCS: 88305; 43239; J2405; J2003; J2704